=== PATIENT | male | born 1960 | race Caucasian/White ===

== ENCOUNTER 2019-12-19 22:50 | Emergency (ER) | payer OTHER, SELFPAY ==
[2019-12-19 23:17] VITALS: BP 146/92; PULSE 66; RESP 14; TEMP 36.3; O2SAT 99
[2019-12-20 01:13] VITALS: BP 136/86; PULSE 62; RESP 18; TEMP 36.6; O2SAT 100
--- NOTE | 2019-12-20 01:37 | ED.GENADULT ---
HPI - General Adult General Chief complaint: Wound/Laceration Stated complaint: wasp sting Time Seen by Provider: 12/20/19 01:27 Source: RN notes reviewed History of Present Illness HPI narrative: Patient presents emergency department from home for a wasp being. Patient states yesterday he was stung in the left forearm by a wasp. He states since that time he has had continued swelling and erythema to the area. He states he is taken no previous medication for the symptoms. He states that there is no stinger that was left in that he is aware of. States he is concerned of possible infection. He states the area does itch. Denies any fevers or chills wrist pain elbow pain or any other symptoms Related Data Allergies Allergy/AdvReac Type Severity Reaction Status Date / Time No Known Allergies Allergy Verified 02/14/18 04:30 Review of Systems Review of Systems: Narrative: Gen.: Denies fevers or chills Musculoskeletal: Denies joint pain Neuro: Denies numbness, tingling, weakness Skin: See HPI Endo: Denies DM PMFSH Past Medical History Medical History (Updated 12/20/19 @ 01:39 by Davian White DO) Patient denies significant medical history Family History Family History (Updated 03/13/15 @ 09:06 by DOCTOR UNKNOWN) Father Family history of coronary artery disease Hypertension Family history of lung cancer Other Diabetes mellitus Family history of malignant neoplasm Social History Social History Smoking status: Former smoker Smoking end date: 06/12/11 Alcohol intake: never Exam Narrative: Exam Narrative: APPEARANCE: No acute distress, nontoxic, resting in bed Eyes: EOMI HEENT: Normocephalic, atraumatic, RESPIRATORY: No respiratory distress MUSCULOSKELETAl: Left dorsal forearm has area of swelling with erythema and area of wasp bite with no stinger seen, there is no tenderness of the wrist or elbow with full range of motion of both, radial pulse 2+, neurovascular intact NEURO: Awake and alert. Following commands, speech normal, no focal deficits SKIN:: Warm, dry. Normal Color no rash or lesions Course Course Emergency Course: Discussed with patient results of workup and diagnosis. Discussed need for follow-up with primary care, proper use of medication, and reasons to return to the emergency department. Patient understands and agrees to current treatment plan Vital Signs Vital signs: Vital Signs Temperature 97.4 F L 12/19/19 23:17 Pulse Rate 66 12/19/19 23:17 Respiratory Rate 14 12/19/19 23:17 Blood Pressure 146/92 H 12/19/19 23:17 Pulse Oximetry 99 12/19/19 23:17 Temperature 97.8 F 12/20/19 01:13 Pulse Rate 62 12/20/19 01:13 Respiratory Rate 18 12/20/19 01:13 Blood Pressure 136/86 12/20/19 01:13 Pulse Oximetry 100 12/20/19 01:13 Medical Decision Making Vital Signs Vital Signs: Vital Signs Temperature 97.4 F L 12/19/19 23:17 Pulse Rate 66 12/19/19 23:17 Respiratory Rate 14 12/19/19 23:17 Blood Pressure 146/92 H 12/19/19 23:17 Pulse Oximetry 99 12/19/19 23:17 Temperature 97.8 F 12/20/19 01:13 Pulse Rate 62 12/20/19 01:13 Respiratory Rate 18 12/20/19 01:13 Blood Pressure 136/86 12/20/19 01:13 Pulse Oximetry 100 12/20/19 01:13 Discharge Plan Discharge Clinical Impression: Sting, wasp, Cellulitis of forearm, left Patient Disposition: Home, Self-Care Condition: Stable Instructions: Antibiotic Form, Cellulitis (ED), Insect Bite or Sting (ED) Additional Instructions: Return for increasing redness of the forearm increasing pain or any other symptoms of concern Prescriptions: New prednisone 20 mg tablet 20 mg PO BID Qty: 8 RF: 0 cephalexin [Keflex] 500 mg capsule 500 mg PO TID Qty: 30 RF: 0 loratadine 10 mg capsule 10 mg PO DAILY Qty: 5 RF: 0 No Action lisinopril 10 mg tablet 10 mg PO DAILY Qty: 90 RF: 1 Follow
[2019-12-20] MEDS: LORATADINE 10 MG TABLET PO (01:50)
[2019-12-20] MEDS: predniSONE 20 MG TABLET 60 MG PO (01:50)
[2019-12-20] MEDS: CEPHALEXIN 500 MG CAPSULE PO (01:50)
[2019-12-20 01:54] VITALS: BP 134/82; PULSE 78; RESP 16; TEMP 36.6; O2SAT 99
== END 2019-12-20 01:54 | disposition home or self-care (01) ==
PROVIDERS: Emergency Provider Emergency Medicine; PCP Family Medicine
DX: T63.461A Toxic effect of venom of wasps, accidental (unintentional), initial encounter (principal); L03.114 Cellulitis of left upper limb; Z87.891 Personal history of nicotine dependence
CPT/HCPCS: 99283; A9270; J7512

== ENCOUNTER 2020-01-21 17:48 | Emergency (ER) | payer OTHER, SELFPAY ==
--- NOTE | ~2020-01-21 | XR_ITS ---
EXAMINATION: XR abdomen/kub 1V EXAM DATE: 01/21/2020 18:01 INDICATION: Left lower abdominal pain. TECHNIQUE: Frontal projection of the upper abdomen, frontal projection lower abdomen/pelvis for inter pretation. There is no prior study for comparison. FINDINGS: There is expected amount of colonic stool and gas. No small bowel dilation, nonobstructiv e bowel gas pattern. There are no suspicious calcifications identified. There is no organomegaly suspected. There is moderate right, mild to moderate left hip primary osteoarthritis. Lung bases unre markable. IMPRESSION: Unremarkable abdomen x-ray exam. Reviewed, dictated and finalized at location A.
[2020-01-21 17:50] VITALS: BP 140/102; PULSE 79; RESP 20; TEMP 36.2; O2SAT 99
--- NOTE | 2020-01-21 18:05 | ED.GENADULT ---
HPI - General Adult General Chief complaint: Abdominal Pain Stated complaint: abdominal pain Time Seen by Provider: 01/21/20 18:05 Source: patient and RN notes reviewed Mode of arrival: ambulatory Limitations: no limitations History of Present Illness HPI narrative: 59-year-old male presents with complaints of intermittent left lower abdomen pain for the past 2 days. No treatment. No significant genital pain. No genital discharge. No concerns for STDs. No fever or chills. No nausea, vomiting, or diarrhea. No flank pain. Exacerbating factors consist of having bowel movement at times, none at this time. Denies dysuria, hematuria, and genital bleeding. No blood in stool or constipation. Last BM was today and michelle per Davian. Urine out put with in normal limits. The patient reports he have not been diagnosed with COVID-19. The patient reports he is not waiting for the results of a COVID-19 lab test. The patient reports he do not have fever, chills, weakness, fatigue, or myalgia. The patient reports he do not have a new or worsening cough or shortness of breath. Denies chest pain. The patient reports he do not have any rhinorrhea, congestion, sore throat, nausea, vomiting, and diarrhea. Tolerating po intake well. Denies recent traveling. Denies concerns for COVID-19 or exposures been home with limited outdoor exposure except for essential household needs, work, and return home. At this time, patient is not suspected of having COVID-19. Some parts of this dictation were generated by voice recognition software and may contain typographical and/or grammatical inaccuracies. Related Data Allergies Allergy/AdvReac Type Severity Reaction Status Date / Time No Known Allergies Allergy Verified 02/14/18 04:30 Review of Systems Review of Systems: Narrative: CONSTITUTIONAL: Denies fever, chills, sweats. EYES: Denies visual changes, redness, discharge. ENT: Denies rhinorrhea, congestion, sore throat, otalgia. CARDIOVASCULAR: Denies chest pain, palpitations, edema. RESPIRATORY: Denies dyspnea, wheezing, cough. GASTROINTESTINAL: Complains of intermittent left lower abdomen pain. Denies vomiting, diarrhea, nausea, and decrease appetite. GENITOURINARY: Denies dysuria, hematuria, abnormal discharge. SKIN: Denies rash or itching. MUSCULOSKELETAL: Denies acute back pain, joint pain, or myalgia. NEUROLOGIC: Denies numbness or focal weakness. PSYCHIATRIC: Denies anxiety or depression. All systems reviewed & are unremarkable except as noted in HPI and below. [facility] Past Medical History Medical History (Updated 01/22/20 @ 00:00 by Dorothy Samayoa) Diverticulosis of large intestine without hemorrhage Erectile dysfunction Essential hypertension RONALD (obstructive sleep apnea) Pure hypercholesterolemia Surgical History Surgical History (Updated 01/21/20 @ 18:08 by AVINASH Nichols) History of left inguinal hernia repair Family History Family History Father Family history of coronary artery disease Hypertension Family history of lung cancer Other Diabetes mellitus Family history of malignant neoplasm Social History Social History Smoking status: Former smoker Smoking end date: 06/12/11 Alcohol intake: never Gender identity (if verbalized by the patient): Male Comments At time of signature, agree with nurse past medical, surgical, social, and family history. There is relevant patient's past medical history pertinent to the presenting complaint, no relevant family history pertinent to the presenting complaint. Exam Narrative: Exam Narrative: GENERAL: This is a well-nourished, well-developed patient, in no apparent distress. Talks in full sentences without deficits and ambulates with steady gait without dyspnea. HEAD: normocephalic, atraumatic. EYES: PERRL. Sclera clear/white. Vision is g
[2020-01-21 18:16] VITALS: BP 139/85
== END 2020-01-21 18:20 | disposition home or self-care (01) ==
PROVIDERS: Emergency Provider Nurse Practitioner Family; PCP Family Medicine
DX: K57.92 Diverticulitis of intestine, part unspecified, without perforation or abscess without bleeding (principal); Z87.891 Personal history of nicotine dependence; G47.33 Obstructive sleep apnea (adult) (pediatric); E78.00 Pure hypercholesterolemia, unspecified; I10 Essential (primary) hypertension
CPT/HCPCS: 74018; 99213; G0463

== ENCOUNTER 2020-10-03 07:10 | Emergency (ER) | payer OTHER, SELFPAY ==
--- NOTE | ~2020-10-03 | XR_ITS ---
EXAMINATION: XR chest 1V portable DATE: 10/03/2020 08:19 INDICATION: Chest pain. Shortness of breath. Fever. TECHNIQUE: A single frontal view of the chest was obtained. COMPARISON: CT abdomen and pelvis 02/15/2020 FINDINGS: There are patchy airspace opacities in the mid and lower lung zones, right worse than left. No pleural effusion or pneumothorax. The heart size is normal. IMPRESSION: 1. Patchy airspace opacities in the mid and lower lung zones, right worse than left, consistent with pneumonia. Reviewed, dictated and finalized at location A.
--- NOTE | ~2020-10-03 | CT_ITS ---
EXAMINATION: CTA chest PE protocol DATE: 10/03/2020 09:02 INDICATION: Chest pain. COVID-19 pneumonia. TECHNIQUE: Computed tomography angiography (CTA) of the chest was performed with 100 mL Omnipaque-350 intravenous contrast timed to evaluate the pulmonary arteries. Coronal maximum intensity projection 3D-reconstructions were created by the technologist. Automated exposure control and iterative reconst ruction technique were employed. The dose-length product was 416.48 mGy-cm. COMPARISON: CT abdomen and pelvis 03/16/2018 FINDINGS: There are patchy groundglass opacities and patchy areas of crazy paving in all lung lobes b ilaterally. There is mild atelectasis in the lower lobes. There are trace pleural effusions. The hear t size is normal. There are coronary artery calcifications. No pericardial effusion. There is no pulm onary embolus. There are cysts in the liver measuring up to 2.3 cm. There is mild thoracic spondylosi s. IMPRESSION: 1. No pulmonary embolus. 2. Diffuse lung disease, consistent with COVID-19 pneumonia. Reviewed, dictated and finalized at location A.
[2020-10-03 07:16] VITALS: BP 152/75; PULSE 87; RESP 18; TEMP 38.6; O2SAT 95
--- NOTE | 2020-10-03 07:33 | ECG_ITS ---
Measurements Intervals [place] Rate: 84 P: 58 [place]: 141 QRS: -1 QRSD: 88 T: 10 QT: 344 QTc: 408 Interpretive Statements SINUS RHYTHM MINIMAL Q WAVES- INFERIOR LEADS BORDERLINE T WAVE ABNORMALITY- INFERIOR LEADS BASELINE ARTIFACT- II, III, AVR, AVF, V1, V3-V6 BORDERLINE ECG Electronically Signed On 10-03-2020 8:20:56 CDT by Javier Castle D.O.
[2020-10-03 07:42] VITALS: BP 140/76; PULSE 88; RESP 18; O2SAT 95
[2020-10-03 07:47] LABS: Basophils Percent Auto 0.1 % (0.2-1.2); Hemoglobin 14.3 g/dL (14.0-18.0); Immature Granulocyte Absolute 0.02 K/mm3 (0.00-0.031); Immature Granulocyte Percent A 0.3 % (0-0.5); Lymphocytes Absolute Auto 0.88 K/mm3 (0.9-3.2); Lymphocytes Percent Auto 11.3 % (18.3-44.2); Mean Corpuscular HGB Conc 34.9 g/dl (32-36); Mean Corpuscular Hemoglobin 31.2 pg (26-34); Mean Corpuscular Volume 89.3 fl (80-100); Mean Platelet Volume 11.7 fl (7.4-10.4); Monocytes Absolute Auto 0.4 K/mm3 (0.1-0.6); Neutrophils Absolute Auto 6.5 K/mm3 (1.3-6.7); Neutrophils Percent Auto 83.3 % (45.5-73.1); Platelet Count Result 250 k/mm3 (150-375); Red Blood Count 4.59 M/mm3 (4.6-6.20); Red Cell Distribution Width 12.3 % (11.5-14.5); White Blood Count 7.8 K/mm3 (4.5-10.0)
--- NOTE | 2020-10-03 07:47 | ED.URI ---
HPI - URI/Sore Throat General Chief Complaint: Upper Respiratory Infection Stated Complaint: SOB, COVID +, Cough Time Seen by Provider: 10/03/20 07:23 Source: patient Mode of arrival: ambulatory Limitations: no limitations History of Present Illness HPI Narrative: This is a 60 year old male who presents for evaluation of possible COVID pneumonia. He developed fever, cough, chills and body aches on 09/25/20 and he tested positive for covid at [facility] on 09/30/20. He states his cough is getting worse and he is having constant chest pain so he came to ER. His cough is nonproductive. He developed midsternal , nonradiating chest pain yesterday. He describes it as a constant chest pressure. HE also reports shortness of breath. He has not been hypoxic at home. He states his had COVID pneumonia the week before. Related Data Allergies Allergy/AdvReac Type Severity Reaction Status Date / Time No Known Allergies Allergy Verified 10/03/20 07:18 Review of Systems Review of Systems: All systems reviewed & are unremarkable except as noted in HPI and below Constitutional: Constitutional: Reports chills and Reports fever(s) Cardiovascular: Cardiovascular: Reports chest pain Respiratory: Respiratory: Reports cough and Reports dyspnea Gastrointestinal: Gastrointestinal: Denies abdominal pain, Denies diarrhea, Denies nausea and Denies vomiting Musculoskeletal: Musculoskeletal: Reports myalgias PMFSH Past Medical History Medical History (Updated 10/03/20 @ 09:56 by Lindsay Krishna MD) Diverticulosis of large intestine without hemorrhage Erectile dysfunction Essential hypertension RONALD (obstructive sleep apnea) Pure hypercholesterolemia Surgical History Surgical History (Updated 01/21/20 @ 18:08 by AVINASH Nichols) History of left inguinal hernia repair Family History Family History Father Family history of coronary artery disease Hypertension Family history of lung cancer Other Diabetes mellitus Family history of malignant neoplasm Social History Social History (Updated 04/08/20 @ 09:29 by Christina Pacheco MA) Years smoked: 10 Smoking status: Former smoker Tobacco type: cigarettes Second hand tobacco smoke exposure: No Smoking end date: 06/12/11 Alcohol intake: never Substance use: never Substance use type: does not use Gender identity (if verbalized by the patient): Male Exam Const: General: no acute distress and alert Orientation/consciousness: patient oriented x3 Eyes: EOM: EOMs intact bilaterally Resp: Effort & Inspection: normal respiratory effort and no retractions Auscultation: clear to auscultation bilaterally Cardio: Rate: regular rate Rhythm: regular rhythm Heart sounds: no murmurs GI: GI Palp: Yes Soft to palpation, No Tenderness to palpation present (GI) and No Guarding due to palpation present (GI) Auscultation: normal bowel sounds Skin: General skin exam: normal color Rashes: no rashes Neuro: General: patient oriented x3, moves all extremities and CN's II-XI intact bilaterally Psych: Mental Status: mental status grossly normal Affect: normal affect Course Reevaluation(s) Reevaluation #1: Patient was ambulated with pulse oximeter. He remained 95% during entire time around nurses station per tech. I have discussed test results with patient and plan to discharge home. He is comfortable with discharge. He will monitor pulse ox at home. Date: 10/03/20 Time: 09:50 Vital Signs Vital signs: Vital Signs Temperature 101.4 F H 10/03/20 07:16 Pulse Rate 87 10/03/20 07:16 Respiratory Rate 18 10/03/20 07:16 Blood Pressure 152/75 H 10/03/20 07:16 Pulse Oximetry 95 10/03/20 07:16 Temperature 99.4 F 10/03/20 08:08 Pulse Rate 85 10/03/20 10:06 Respiratory Rate 25 H 10/03/20 10:06 Blood Pressure 126/74 10/03/20 10:06 Pulse Oximetry 97 10/03/20 10
[2020-10-03] MEDS: ALBUTEROL SULFATE (*SP) AEROSOL 1 PUFF 6 PUFF INHALATION (07:50)
[2020-10-03 07:56] LABS: INR 0.9; Prothrombin Time 12.9 Seconds (11.1-14.7)
[2020-10-03 07:56] LABS: Add Urine Microscopic? YES; Appearance Urine Cloudy (Clear); Bacteria Urine Trace /hpf; Bilirubin Urine Negative (Negative); Blood Urine 1+ (Negative); Color Urine Amber (Yellow); Glucose Urine UA Negative (Negative); Ketones Urine Trace mg/dL (Negative); Leukocyte Esterase Ur Negative LEU/UL (Negative); Mucus Urine Rare /lpf; Nitrate Urine Negative (Negative); Protein Urine 2+ mg/dL (Negative); Specific Grav Ur 1.026 (1.001-1.035); Urobilinogen Urine Negative mg/dL (<2.0); WBC Urine 0-3 /hpf
[2020-10-03 07:57] LABS: Partial Thromboplastin Time 33.1 SECONDS (22.3-36.8)
[2020-10-03 07:59] LABS: D Dimer 1.67 ug/mL (<0.48)
[2020-10-03 08:01] LABS: Alanine Aminotransferase 45 U/L (4-50); Alkaline Phosphatase 43 U/L (38-126); Anion Gap 10 mmol/L (8-16); Aspartate Amino Transferase 70 U/L (17-59); Bilirubin,Total 0.6 mg/dL (0.2-1.3); Blood Urea Nitrogen 15 mg/dL (9-20); Calcium 8.3 mg/dL (8.4-10.2); Carbon Dioxide 26 mmol/L (22-30); Chloride 94 mmol/L (98-107); Estimated CRCL calculation 70 ml/min; Estimated Glomerular Filt Rate > 60; Glucose 121 mg/dL (75-110); Potassium 3.5 mmol/L (3.4-5.0); Sodium 130 mmol/L (137-145)
[2020-10-03 08:06] LABS: Alveolar/Arterial O2 Gradient 44.6 mmHg; Base Excess ABG 1.4 mEq/l (+/-2.0); Carboxyhemoglobin 0.4 % THb (0-2.0); Fractional Inspired Oxygen 21 %; HCO3 ABG 23.9 mEq/l (22.0-26.0); Methemoglobin ABG 0.3 %THb (0-1.5); Oxygen Content ABG 18.6 %vol (16.0-22.0); Oxyhemoglobin 93.7 % THb (90.0-100.0); PCO2 ABG 31.6 mmHg (35.0-45.0); PO2 ABG 67.3 mmHg (80.0-100.0); Reduced Hemoglobin 5.6 %THb (0-5.0); Total Hemoglobin 14.1 g/dL (12.0-18.0); pH ABG 7.496 (7.350-7.450)
[2020-10-03 08:07] LABS: Device ROOM AIR; Modified Allen's Test Pass; Site Drawn RIGHT RADIAL
[2020-10-03 08:08] VITALS: TEMP 37.4
[2020-10-03 08:08] LABS: Troponin I < 0.012 ng/mL (0.000-0.034)
[2020-10-03 08:09] LABS: CRP 18.8 mg/dL (<1.0)
[2020-10-03 08:45] VITALS: BP 126/71; PULSE 102; RESP 18; O2SAT 95
[2020-10-03] MEDS: SODIUM CHLORIDE 0.9% IV 1,000 ML 999 ML IV CONT (08:45)
[2020-10-03 09:36] VITALS: BP 111/71; PULSE 96; RESP 22; O2SAT 96
[2020-10-03 10:06] VITALS: BP 126/74; PULSE 85; RESP 25; O2SAT 97
== END 2020-10-03 10:07 | disposition home or self-care (01) ==
PROVIDERS: Emergency Provider General Practice; PCP Family Medicine
DX: U07.1 COVID-19 (principal); J12.82 Pneumonia due to coronavirus disease 2019; R94.31 Abnormal electrocardiogram [ECG] [EKG]; K57.30 Diverticulosis of large intestine without perforation or abscess without bleeding; I10 Essential (primary) hypertension; G47.33 Obstructive sleep apnea (adult) (pediatric); E78.00 Pure hypercholesterolemia, unspecified
CPT/HCPCS: 36415; 36600; 71045; 71275; 80053; 81001; 82375; 82805; 83050; 83735; 84484; 85025; 85380; 85610; 85730; 86140; 87040; 93005; 96361; 96365; 99284; A9270; J0131; J7030; Q9967

== ENCOUNTER 2020-10-05 08:52 | Inpatient (IN) | payer OTHER, SELFPAY ==
[2020-10-05] VITALS (22 sets, daily range): BP systolic 101–179; BP diastolic 73–87; PULSE 78–142; RESP 18–44; TEMP 35.9–39.6; O2SAT 76–100; BMI 27.6
--- NOTE | ~2020-10-05 | XR_ITS ---
EXAMINATION: XR chest 1V portable INDICATION: Shortness of breath, COVID 19 pneumonia TECHNIQUE: Portable AP chest at 0525 hours COMPARISON: 10/14/2020 FINDINGS: Diffuse opacities persist in all lung zones with worsening in the right upper lung zone. Th ere is a small right pleural effusion. No pneumothorax is identified. The cardiomediastinal silhouett e is stable. IMPRESSION: 1. Diffuse lung disease with interval worsening in the right upper lung zone, consistent with pneumon ia and/or pulmonary edema and/or acute respiratory distress syndrome (ARDS). Reviewed, dictated and finalized at location A. IMPRESSION: 1. Diffuse lung disease with interval worsening in the right upper lung zone, c onsistent with pneumonia and/or pulmonary edema and/or acute respiratory distre ss syndrome (ARDS).
--- NOTE | ~2020-10-05 | XR_ITS ---
XR chest 1V portable DATE: 10/19/2020 14:04 INDICATION: Covid pneumonia TECHNIQUE: Portable AP chest on 10/19/2020 at 1405 hours COMPARISON: 10/28/2020 portable AP chest FINDINGS: There are extensive bilateral pulmonary infiltrates, greater on the right, with little inte rval change since 10/28/2020. Normal heart size. There is minimal if any pleural effusion. No pneumothorax or pulmonary vascular co ngestion. Osteoarthritic change at both glenohumeral joints. Diffuse osteopenia. IMPRESSION: Persistent bilateral pneumonia, relatively stable since 10/18/2020 Reviewed, dictated and finalized at location A.
--- NOTE | ~2020-10-05 | XR_ITS ---
EXAMINATION: XR chest 1V portable EXAM DATE: 10/28/2020 08:58 INDICATION: Shortness of breath. Recent diagnosis COVID pneumonia. TECHNIQUE: Portable AP frontal chest x-ray was obtained. Comparison is made to prior examination from 10/22/2020. FINDINGS: Moderate amount of scattered regions pneumonia and atelectasis, appearance consistent with subacute COVID pneumonia. There is no significant interval change. There is no pneumothorax suspected . Probable small right pleural effusion. Cardiomediastinal silhouette is normal. There are mild bony degenerative changes. IMPRESSION: Bilateral airspace disease consistent with subacute COVID pneumonia. Small right pleural effusion. Reviewed, dictated and finalized at location A. IMPRESSION: Bilateral airspace disease consistent with subacute COVID pneumonia . Small right pleural effusion.
--- NOTE | ~2020-10-05 | XR_ITS ---
XR chest 1V portable 10/05/2020 09:51 Indication: Covid positive. Shortness of breath. Procedure: AP portable chest Comparison: 10/03/2020 Findings: Progression of extensive bilateral airspace disease, compatible with pneumonia. No pleural effusion or pneumothorax. No acute osseous abnormality. Impression: 1: Progression of diffuse bilateral airspace disease, compatible with pneumonia. Reviewed, dictated and finalized at location B. Impression: 1: Progression of diffuse bilateral airspace disease, compatible with pneumonia .
--- NOTE | ~2020-10-05 | XR_ITS ---
EXAMINATION: XR chest 1V portable DATE: 10/22/2020 10:28 INDICATION: Shortness of breath. COVID-19 pneumonia. TECHNIQUE: A single frontal view of the chest was obtained. COMPARISON: Chest single views 10/19/2020, chest CT 10/03/2020 FINDINGS: There are patchy airspace opacities in all lung zones bilaterally, right worse than left. N o pleural effusion or pneumothorax. The heart size is normal. IMPRESSION: 1. Stable diffuse lung disease, consistent with pneumonia. Reviewed, dictated and finalized at location B.
--- NOTE | ~2020-10-05 | XR_ITS ---
XR chest 1V portable 10/18/2020 08:12 Indication: CovidPneumonia Procedure: AP portable chest Comparison: Comparison to multiple prior studies sequentially, with oldest reviewed study date. Findings: Improving bilateral airspace disease. Small pleural effusions. No pneumothorax. Heart size normal. No acute osseous abnormality. Impression: 1: Significant improvement of bilateral airspace disease, consistent with resolving pneumonia. Reviewed, dictated and finalized at location A. Impression: 1: Significant improvement of bilateral airspace disease, consistent with resol ving pneumonia.
--- NOTE | ~2020-10-05 | XR_ITS ---
EXAMINATION: XR chest 1V portable INDICATION: Shortness of breath, COVID pneumonia TECHNIQUE: Portable AP chest at 0922 hours COMPARISON: 10/05/2020 FINDINGS: Diffuse airspace opacities persist with worsening in the right upper and lower lung zones. There is no pleural effusion or pneumothorax. The cardiomediastinal silhouette is stable. IMPRESSION: 1. Diffuse lung disease with interval worsening on the right, consistent with pneumonia and/or pulmon melissa edema and/or acute respiratory distress syndrome (ARDS). Reviewed, dictated and finalized at location A. IMPRESSION: 1. Diffuse lung disease with interval worsening on the right, consistent with p neumonia and/or pulmonary edema and/or acute respiratory distress syndrome (ZEV S).
--- NOTE | 2020-10-05 09:07 | ECG_ITS ---
Measurements Intervals [place] Rate: 95 P: 55 FL: 147 QRS: 7 QRSD: 79 T: 30 QT: 313 QTc: 395 Interpretive Statements SINUS RHYTHM MINIMAL Q WAVES- INFERIOR LEADS BASELINE ARTIFACT- V2-V3, V5-V6 BORDERLINE ECG Electronically Signed On 10-05-2020 9:13:19 CDT by Javier Castle D.O.
[2020-10-05 09:25] LABS: Basophils Percent Auto 0.1 % (0.2-1.2); Hematocrit 39.9 % (42.0-52.0); Hemoglobin 13.9 g/dL (14.0-18.0); Immature Granulocyte Absolute 0.14 K/mm3 (0.00-0.031); Immature Granulocyte Percent A 0.8 % (0-0.5); Lymphocytes Absolute Auto 0.44 K/mm3 (0.9-3.2); Lymphocytes Percent Auto 2.4 % (18.3-44.2); Mean Corpuscular HGB Conc 34.8 g/dl (32-36); Mean Corpuscular Hemoglobin 31.4 pg (26-34); Mean Corpuscular Volume 90.3 fl (80-100); Mean Platelet Volume 10.8 fl (7.4-10.4); Monocytes Absolute Auto 0.3 K/mm3 (0.1-0.6); Monocytes Percent Auto 1.8 % (2.6-8.5); Neutrophils Absolute Auto 17.5 K/mm3 (1.3-6.7); Neutrophils Percent Auto 94.9 % (45.5-73.1); Platelet Count Result 338 k/mm3 (150-375); Red Blood Count 4.42 M/mm3 (4.6-6.20); Red Cell Distribution Width 12.7 % (11.5-14.5); White Blood Count 18.4 K/mm3 (4.5-10.0)
[2020-10-05 09:36] LABS: Lactic Acid Reflex 2.8 mmol/L (0.7-2.1)
[2020-10-05 09:37] LABS: Anion Gap 7 mmol/L (8-16); Blood Urea Nitrogen 17 mg/dL (9-20); Calcium 8.4 mg/dL (8.4-10.2); Carbon Dioxide 28 mmol/L (22-30); Chloride 95 mmol/L (98-107); Estimated CRCL calculation 59 ml/min; Estimated Glomerular Filt Rate > 60; Glucose 133 mg/dL (75-110); Potassium 3.7 mmol/L (3.4-5.0); Sodium 130 mmol/L (137-145)
[2020-10-05 09:44] LABS: Alveolar/Arterial O2 Gradient 242.4 mmHg; Fractional Inspired Oxygen 48 %; HCO3 ABG 23.4 mEq/l (22.0-26.0); Oxygen Content ABG 17.9 %vol (16.0-22.0); Oxygen Saturation ABG 94.6 % (95.0-100.0); Oxyhemoglobin 93.6 % THb (90.0-100.0); PCO2 ABG 30.8 mmHg (35.0-45.0); PO2 FiO2 Ratio Arterial Blood 1.35 %; Total Hemoglobin 13.6 g/dL (12.0-18.0); pH ABG 7.498 (7.350-7.450)
[2020-10-05 09:45] LABS: Device HIGH FLOW NASAL CANN; Modified Allen's Test Pass; Site Drawn RIGHT RADIAL
[2020-10-05] MEDS: DEXAMETHASONE SOD PHOS INJ 4 MG/ML VIAL 6 MG IV PUSH (09:46)
[2020-10-05] MEDS: ACETAMINOPHEN 325 MG TABLET 650 MG PO (10:16)
[2020-10-05] MEDS: SODIUM CHLORIDE 0.9% IV 1,000 ML 150 ML IV CONT (11:00)
--- NOTE | 2020-10-05 11:52 | ED.GENADULT ---
HPI - General Adult General Chief complaint: Shortness of Breath/Dyspnea Stated complaint: sob/covid Time Seen by Provider: 10/05/20 08:59 Source: patient Mode of arrival: ambulatory Limitations: no limitations History of Present Illness HPI narrative: 60-year-old with no major medical problems here with complaints of shortness of breath. Patient states that he has been sick approximately for past 10 days had a Covid screen done 4 days ago and was tested positive. He states that he has been having high fever and occasional cough. He denies any nausea, vomiting or diarrhea or abdominal pain. Upon arrival to the ER his O2 saturations were 79% on room air. Onset (ago): day(s) (10) Severity: moderate Relieving factors: other (Oxygen) Exacerbating factors: none Associated symptoms: cough and fever/chills Related Data Allergies Allergy/AdvReac Type Severity Reaction Status Date / Time No Known Allergies Allergy Verified 10/05/20 09:46 Review of Systems Review of Systems: All systems reviewed & are unremarkable except as noted in HPI and below Constitutional: Constitutional: Reports as per HPI Eyes: Eyes: Reports no additional eye complaints ENT: Reports system reviewed and no additional complaints, except as documented Cardiovascular: Cardiovascular: Reports no additional cardiovascular complaints Respiratory: Respiratory: Reports as per HPI Genitourinary: Genitourinary: Reports no additional male genitourinary complaints Musculoskeletal: Musculoskeletal: Reports no additional musculoskeletal complaints Integumentary/Breasts: Skin/Breast: Reports system reviewed and no additional complaints, except as docu Neurologic: Reports system reviewed and no additional complaints, except as documented Psychiatric: Psychiatric: Reports no additional psychiatric complaints Endocrine: Endocrine: Reports no additional endocrine complaints Hematologic/Lymphatic: Hematologic/Lymphatic: Reports no additional hematologic/lymphatic complaints [facility] Past Medical History Medical History Diverticulosis of large intestine without hemorrhage Erectile dysfunction Essential hypertension RONALD (obstructive sleep apnea) Pure hypercholesterolemia Surgical History Surgical History History of left inguinal hernia repair Family History Family History Father Family history of coronary artery disease Hypertension Family history of lung cancer Other Diabetes mellitus Family history of malignant neoplasm Social History Social History Years smoked: 10 Smoking status: Former smoker Tobacco type: cigarettes Second hand tobacco smoke exposure: No Smoking end date: 06/12/11 Alcohol intake: never Substance use: never Substance use type: does not use Gender identity (if verbalized by the patient): Male Exam Narrative: Exam Narrative: GENERAL: Well-appearing,anxious , well-nourished, and in mild respiratory distress. HEAD: Normocephalic, atraumatic. EYES: PERRLA and EOMI. NECK: Supple. CHEST: Bilateral coarse breath sounds poor air entry HEART: Regular rate and rhythm. No murmur heard. Normal peripheral pulses. ABDOMEN: Soft, nontender, nondistended, normal active bowel sounds. EXTREMITIES: Normal range of motion. No edema. SKIN: Warm, dry, no rash. NEURO: No focal deficits. Alert and oriented x3. PSYCH: Normal mood and affect. Course Course Emergency Course: Patient was placed on high flow oxygen and his O2 saturations are up to 94 to 95% he feels much better I discussed labs and chest x-ray finding. Discussed with the hospitalist agreed to admit the patient. Vital Signs Vital signs: Vital Signs Temperature 39.6 C H 10/05/20 08:57 Pulse Rate 95 10/05/20 08:57 Respiratory Rate 44 H 10/05/20
[2020-10-05 12:22] LABS: Reflex Lactic Acid Yes or No Add Lactic
--- NOTE | 2020-10-05 12:53 | PM.IMHP ---
H&P: HPI History of Present Illness Date/Time: 10/05/20 12:53 Chief Complaint: Shortness of breath Narrative: This is a 60-year-old male with no significant past medical history the patient presented to the emergency room last Monday due to shortness of breath he had tested positive for COVID Monday prior to these both him and his have been sick for 3 weeks at home patient states that he has worsening shortness of breath dry cough, chills ,rigors, poor appetite, general malaise, muscle aches and pain. Patient also with significant changes found on a chest x-ray with diffuse infiltrates. Patient upon arrival to emergency room with found to be saturating at 75% on room air he require high-flow oxygen as well. Patient states that he feels miserable. Patient was seen last started in emergency room and was sent home with Tessalon Perles dexamethasone and albuterol. Review of Systems Review of Systems: Narrative: With patient presented to the emergency room due to worsening shortness of breath he had been prior to DS on Monday and was sent home on albuterol and Tessalon Perles and dexamethasone however came back today due to worsening shortness of breath and cough patient tested positive last Monday for COVID-19 Constitutional: Constitutional: Reports body ache(s), Reports chills, Reports difficulty sleeping, Reports fatigue, Reports fever(s) and Reports poor appetite Eyes: Comments: No vision change ENT: Comments: No sore throat no earache nasal congestion Cardiovascular: Comments: No chest pain no PND no orthopnea no leg swelling Respiratory: Comments: Dry cough shortness of breath Gastrointestinal: Comments: No nausea no vomiting no diarrhea Musculoskeletal: Comments: Muscle aches and pains Integumentary/Breasts: Comments: No rash Neurologic: Comments: No sensorimotor deficit Endocrine: Comments: No polydipsia polyphagia polyuria no heat or cold intolerance Hematologic/Lymphatic: Comments: No lymphadenopathies PMFSH Past Medical History Medical History Diverticulosis of large intestine without hemorrhage Erectile dysfunction Essential hypertension RONALD (obstructive sleep apnea) Pure hypercholesterolemia Surgical History Surgical History History of left inguinal hernia repair Family History Family History Father Family history of coronary artery disease Hypertension Family history of lung cancer Other Diabetes mellitus Family history of malignant neoplasm Social History Social History Years smoked: 10 Smoking status: Former smoker Tobacco type: cigarettes Second hand tobacco smoke exposure: No Smoking end date: 06/12/11 Alcohol intake: never Substance use: never Substance use type: does not use Gender identity (if verbalized by the patient): Male Meds Home Medications and Allergies Home Medications Medication Instructions Recorded Confirmed Type lisinopril 10 mg tablet 10 mg PO DAILY #90 tablet 08/13/20 Rx albuterol sulfate 2 puff INHALATION QID PRN #6.7 g 10/03/20 Rx benzonatate [Tessalon Perles] 100 mg PO TID PRN #14 cap 10/03/20 Rx dexamethasone 6 mg PO DAILY #5 tablet 10/03/20 Rx Allergies Allergy/AdvReac Type Severity Reaction Status Date / Time No Known Allergies Allergy Verified 10/05/20 09:46 Vital Signs Vital Signs - 24 hr 10/05/20 08:57 10/05/20 09:00 10/05/20 09:20 Temperature 103.2 F H Pulse Rate 95 95 95 Respiratory Rate 44 H 26 H 31 H Blood Pressure 179/84 H 179/84 H 160/87 H Pulse Oximetry 76 L 93 93 10/05/20 09:40 10/05/20 09:46 10/05/20 10:00 Temperature Pulse Rate 95 96 Respiratory Rate 37 H 34 H Blood Pressure 151/84 H 150/81 H Pulse Oximetry 96 96 100 10/05/20 10:40 10/05/20 11:41 Temperature 10
[2020-10-05 15:02] LABS: Prothrombin Time 13.9 Seconds (11.1-14.7)
[2020-10-05 15:03] LABS: Alanine Aminotransferase 71 U/L (4-50); Estimated CRCL calculation 77 ml/min; Estimated Glomerular Filt Rate > 60
[2020-10-05] MEDS: ALBUTEROL SULFATE (*SP) AEROSOL 1 PUFF 2 PUFF INHALATION (15:03)
[2020-10-05] MEDS: dilTIAZem HCl INJ 25 MG/5 ML VIAL 20 MG IV PUSH (15:10)
[2020-10-05] MEDS: SODIUM CHLORIDE 0.9% IV 1,000 ML 125 ML IV CONT ×2 (15:10→20:33)
[2020-10-05] MEDS: REMDESIVIR 200 MG/NS 250 ML 200 MG/250 ML BAG 250 MG IVPB (16:49)
[2020-10-05] MEDS: ENOXAPARIN 100 MG/ML SYRINGE 85 MG SUB-Q (19:00)
[2020-10-05] MEDS: ALBUTEROL SULFATE (*SP) INHALER 2 PUFF INHALATION (20:00)
[2020-10-06] VITALS (21 sets, daily range): BP systolic 118–159; BP diastolic 79–93; PULSE 90–118; RESP 20; TEMP 36.1–37.1; O2SAT 89–94
[2020-10-06] MEDS: SODIUM CHLORIDE 0.9% IV 1,000 ML 125 ML IV CONT ×3 (03:35→19:59)
[2020-10-06] MEDS: ALBUTEROL SULFATE (*SP) INHALER 2 PUFF INHALATION ×6 (04:00→20:03)
[2020-10-06 04:07] LABS: Basophils Percent Auto 0.1 % (0.2-1.2); Hematocrit 34.7 % (42.0-52.0); Hemoglobin 12.3 g/dL (14.0-18.0); Immature Granulocyte Absolute 0.21 K/mm3 (0.00-0.031); Immature Granulocyte Percent A 1.1 % (0-0.5); Lymphocytes Absolute Auto 0.44 K/mm3 (0.9-3.2); Lymphocytes Percent Auto 2.2 % (18.3-44.2); Mean Corpuscular HGB Conc 35.4 g/dl (32-36); Mean Corpuscular Hemoglobin 31.8 pg (26-34); Mean Corpuscular Volume 89.7 fl (80-100); Mean Platelet Volume 10.5 fl (7.4-10.4); Monocytes Absolute Auto 0.5 K/mm3 (0.1-0.6); Monocytes Percent Auto 2.7 % (2.6-8.5); Neutrophils Absolute Auto 18.5 K/mm3 (1.3-6.7); Neutrophils Percent Auto 93.9 % (45.5-73.1); Platelet Count Result 323 k/mm3 (150-375); Red Blood Count 3.87 M/mm3 (4.6-6.20); Red Cell Distribution Width 12.8 % (11.5-14.5); White Blood Count 19.7 K/mm3 (4.5-10.0)
[2020-10-06 04:17] LABS: INR 1.1; Prothrombin Time 14.9 Seconds (11.1-14.7)
[2020-10-06 04:20] LABS: Alanine Aminotransferase 83 U/L (4-50); Albumin Level 2.9 g/dL (3.5-5.1); Alkaline Phosphatase 50 U/L (38-126); Anion Gap 3 mmol/L (8-16); Aspartate Amino Transferase 103 U/L (17-59); Bilirubin,Total 0.5 mg/dL (0.2-1.3); Blood Urea Nitrogen 16 mg/dL (9-20); Calcium 7.3 mg/dL (8.4-10.2); Carbon Dioxide 26 mmol/L (22-30); Chloride 98 mmol/L (98-107); Estimated CRCL calculation 77 ml/min; Estimated Glomerular Filt Rate > 60; Glucose 107 mg/dL (75-110); Potassium 3.9 mmol/L (3.4-5.0); Sodium 127 mmol/L (137-145)
[2020-10-06] MEDS: ENOXAPARIN 100 MG/ML SYRINGE 85 MG SUB-Q ×2 (05:49→18:33)
[2020-10-06] MEDS: DEXAMETHASONE SOD PHOS INJ 4 MG/ML VIAL 6 MG IV PUSH (08:36)
--- NOTE | 2020-10-06 09:33 | PM.CNCAR ---
Assessment and Plan Assessment and plan (1) Atrial fibrillation with rapid ventricular response: Code(s): I48.91 - Unspecified atrial fibrillation Status: Acute Assessment and Plan: New onset this hospitalization very likely secondary to hypoxic respiratory failure in setting of COVID pneumonia. Heart rate under reasonable control on diltiazem infusion. We will attempt to wean to oral regimen. If 50 mg metoprolol tartrate b.i.d. 1st dose now than 30 minutes later wean diltiazem off. Continue systemic anticoagulation with enoxaparin 1 milligram/kilogram subcutaneous q.12 hours. May transition to oral regimen Eliquis 5 mg b.i.d.. Monitor liver function tests. 2D echocardiogram prior to discharge or if change in clinical status. Improve heart rate control prior to echo. Monitor electrolytes, respiratory status. Check TSH. Check magnesium level. Potassium level within normal limits. (2) Acute respiratory failure with hypoxia: Code(s): J96.01 - Acute respiratory failure with hypoxia Status: Acute Assessment and Plan: Per hospitalist service. Continue supportive care. No question respiratory compromise, COVID infection driving A. Fib development. (3) Pneumonia due to COVID-19 virus: Code(s): U07.1 - COVID-19; J12.82 - Pneumonia due to coronavirus disease 2019 Status: Acute Assessment and Plan: Remains on isolation for COVID. High-flow nasal cannula. Dexamethasone, antibiotics, supplemental oxygen, bronchodilator therapy, Remdesivir. (4) Essential hypertension: Code(s): I10 - Essential (primary) hypertension Status: Acute Assessment and Plan: Fair control overall. Was on lisinopril 10 mg daily as an outpatient. History of Present Illness History of Present Illness Consult date/time: Date of service: 10/06/20 09:33 Cardiology consultation at the request of Dr. Greene for our opinion regarding atrial fibrillation with RVR in the setting COVID pneumonia. Requesting physician: Gala Greene MD Consult reason: atrial fibrillation Reason For Visit: Covid pneumonia with hypoxemia Narrative: Patient is a pleasant 60-year-old male with a past medical history significant for hypertension, reported dyslipidemia who presented to the emergency room initially 10/03/2020 with complaints of shortness of breath and positive COVID test previously. He has been ill with his for 3 weeks. Due to worsening shortness of breath, dry cough, chills, rigors and decreased appetite he presented to the emergency department. He also complained of muscle aches. CT PE protocol was obtained 10/03/2020 which revealed diffuse infiltrate consistent with COVID pneumonia but no pulmonary embolism. Patient was discharged home with dexamethasone and albuterol but due to progression as noted above presented back to the ER on 10/05/2020. He was noted be hypoxic improved on supplemental oxygen saturation. At presentation he was in sinus rhythm but subsequently developed atrial fibrillation with rapid ventricular response with heart rate up to the 130-150's. He was started on diltiazem infusion currently at 5 milligrams/hour as well as enoxaparin 1 milligram/kilogram subcutaneous q.12 hours. Patient complained of fatigue, chest heaviness, cough and shortness of breath. He is aware times a his heart beating more rapidly. He has no prior history of any cardiac issues including atrial fibrillation. Denies heart failure, history of DVT/PE, bleeding complications, near-syncope or syncope. Review of Systems Review of Systems: All systems reviewed & are unremarkable except as noted in HPI and below Constitutional: Constitutional: Reports as per HPI, Reports no additional constitutional complaints, Reports body ache(s), Reports chills, Reports fatigue, Reports lethargy and Reports weakness Eyes: Eyes: Reports as per HPI and Reports no additional eye complaints ENT: Reports system reviewed and n
[2020-10-06] MEDS: METOPROLOL TARTRATE 50 MG TAB PO ×2 (10:31→20:02)
--- NOTE | 2020-10-06 12:12 | PM.IMPN ---
Progress Note: A&P Assessment and Plan (1) Acute respiratory failure with hypoxia: Code(s): J96.01 - Acute respiratory failure with hypoxia Status: Acute Assessment and Plan: Patient is currently on high-flow nasal cannula Airvo. Try and keep oxygen saturation 94% Supportive care Breathing treatments (2) Pneumonia due to COVID-19 virus: Code(s): U07.1 - COVID-19; J12.82 - Pneumonia due to coronavirus disease 2019 Status: Acute Assessment and Plan: Patient receives convalescent plasma Remdesivir and Dexamethasone Rocephin and Zithromax (3) Atrial fibrillation with rapid ventricular response: Code(s): I48.91 - Unspecified atrial fibrillation Status: Acute Assessment and Plan: Currently on Cardizem drip Appreciate cardiology consult Anticoagulated with Lovenox (4) RONALD (obstructive sleep apnea): Code(s): G47.33 - Obstructive sleep apnea (adult) (pediatric) Status: Acute Assessment and Plan: Unclear if patient uses CPAP at home (5) Essential hypertension: Code(s): I10 - Essential (primary) hypertension Status: Acute Assessment and Plan: Continue to monitor (6) Hyponatremia: Code(s): E87.1 - Hypo-osmolality and hyponatremia Status: Acute Assessment and Plan: Will send urine lytes Urine osmolality Free water restriction Patient with a positive balance SIADH a possibility Subjective Date/time seen: 10/06/20 12:12 I feel much better Review of Systems Review of Systems: Narrative: Patient presented to emergency room due to worsening shortness of breath generalized malaise fatigue poor appetite chills and rigors dry cough Exam Narrative: Exam Narrative: Patient is laying in bed in no acute distress Patient is on high-flow nasal cannula Airvo Const: General: comfortable, no acute distress, well developed, alert, awake and ill appearing acutely Nutritional Appearance: average body habitus Orientation/consciousness: patient oriented x3 HENMT: Head: normal to inspection, normocephalic and atraumatic Ears: hearing grossly normal bilaterally Face and sinus: normal facial exam Eyes: General: appearance normal, both eyes and all related structures Pupils: Equal, round and reactive pupils present EOM: EOMs intact bilaterally Neck: Neck: full ROM, no lymphadenopathy and no JVD Thyroid: thyroid normal Lymphatic: no lymphadenopathy noted Resp: Effort & Inspection: normal respiratory effort and able to speak in complete sentences Auscultation: clear to auscultation bilaterally and diminished lung sounds Cardio: Jugular venous distension: no JVD Rate: regular rate Rhythm: regular rhythm Heart sounds: S1 normal heart sound present and S2 normal heart sound present GI: GI Palp: Yes Soft to palpation and Yes No hepatosplenomegaly present : General: Yes deferred Skin: Rashes: no rashes Wounds: no wounds Neuro: General: patient oriented x3 and CN's II-XI intact bilaterally Cranial nerves: Yes CN's II-XII intact bilaterally and Yes Equal, round and reactive pupils present Cognition (Neuro): normal cognition Speech: normal speech Gait exam (Neuro): Normal gait present Motor exam (neuro): 5/5 motor strength present throughout Extrem: General: normal to inspection, full ROM, no joint enlargement and no pedal edema Objective Data Vital Signs Vital Signs: Vital Signs - 24 hr 10/05/20 13:12 10/05/20 13:43 10/05/20 14:00 Temperature 96.6 F L Pulse Rate 124 H 128 H 131 H Respiratory Rate 18 28 H Blood Pressure 101/82 137/84 Pulse Oximetry 94 94 10/05/20 15:08 10/05/20 15:09 10/05/20 16:00 Temperature Pulse Rate 134 H 129 H Respiratory Rate Blood Pressure Pulse Oximetry 93 90 10/05/20 16:57 10/05/20 18:00 10/05/20 20:00 Temperature 97.2 F L 99.8 F H Pulse Rate 120 H 126 H 127 H Respiratory Rate 22 H 22 H Blood Pressure 129/74 149/82 H Pulse Oximetry 93 86 L 10/05
[2020-10-06 14:38] LABS: Sodium Urine Random 93 meq/L
[2020-10-06] MEDS: TUBING, BLOOD PLUM PUMP TUBING 1 EACH XX (16:49)
[2020-10-06] MEDS: SODIUM CHLORIDE 0.9% IV 250 ML 30 ML IV CONT (16:49)
[2020-10-06] MEDS: REMDESIVIR 100 MG/NS 250 ML 100 MG/250 ML BAG 250 MG IVPB (22:30)
[2020-10-07] VITALS (21 sets, daily range): BP systolic 137–152; BP diastolic 86–93; PULSE 91–129; RESP 20–24; TEMP 35.6–36.4; O2SAT 92–98
[2020-10-07] MEDS: ALBUTEROL SULFATE (*SP) INHALER 2 PUFF INHALATION ×7 (00:31→22:41)
[2020-10-07] MEDS: SODIUM CHLORIDE 0.9% IV 1,000 ML 125 ML IV CONT ×2 (03:50→12:00)
[2020-10-07 04:57] LABS: Alanine Aminotransferase 126 U/L (4-50); Estimated CRCL calculation 97 ml/min; Estimated Glomerular Filt Rate > 60
[2020-10-07 05:24] LABS: Prothrombin Time 14.2 Seconds (11.1-14.7)
[2020-10-07] MEDS: ENOXAPARIN 100 MG/ML SYRINGE 85 MG SUB-Q ×2 (05:43→17:53)
[2020-10-07] MEDS: METOPROLOL TARTRATE 50 MG TAB PO (09:27)
[2020-10-07] MEDS: DEXAMETHASONE SOD PHOS INJ 4 MG/ML VIAL 6 MG IV PUSH (09:27)
[2020-10-07 10:34] LABS: Hemoglobin 12.7 g/dL (14.0-18.0); Mean Corpuscular HGB Conc 35.3 g/dl (32-36); Mean Corpuscular Hemoglobin 31.1 pg (26-34); Mean Platelet Volume 10.2 fl (7.4-10.4); Platelet Count Result 385 k/mm3 (150-375); Red Blood Count 4.09 M/mm3 (4.6-6.20); Red Cell Distribution Width 12.6 % (11.5-14.5); White Blood Count 18.4 K/mm3 (4.5-10.0)
[2020-10-07 10:43] LABS: Anion Gap 5 mmol/L (8-16); Blood Urea Nitrogen 14 mg/dL (9-20); Calcium 7.5 mg/dL (8.4-10.2); Carbon Dioxide 22 mmol/L (22-30); Chloride 102 mmol/L (98-107); Estimated CRCL calculation 112 ml/min; Estimated Glomerular Filt Rate > 60; Glucose 166 mg/dL (75-110); Lactate Dehydrogenase 1138 U/L (313-618); Potassium 3.8 mmol/L (3.4-5.0); Sodium 129 mmol/L (137-145)
[2020-10-07 11:02] LABS: Band Neutrophils Percent 3 % (0-6); Lymphocytes Absolute Manual 0.55 K/mm3 (1.1-4.5); Monocytes Absolute Manual 0.55 K/mm3 (0.1-0.90); Monocytes Percent Manual 3 % (3-9); Neutrophils Absolute Manual 17.29 K/mm3 (1.3-6.7); Neutrophils Percent Manual 91 % (46-73); Total Cells Counted 100
[2020-10-07 11:03] LABS: Platelet Estimate Adequate (Adequate)
--- NOTE | 2020-10-07 12:33 | PM.IMPN ---
Progress Note: A&P Assessment and Plan (1) Acute respiratory failure with hypoxia: Code(s): J96.01 - Acute respiratory failure with hypoxia Status: Acute Assessment and Plan: Patient is currently on high-flow nasal cannula Airvo. 45 % oxygen Try and keep oxygen saturation 94% Supportive care Breathing treatments (2) Pneumonia due to COVID-19 virus: Code(s): U07.1 - COVID-19; J12.82 - Pneumonia due to coronavirus disease 2019 Status: Acute Assessment and Plan: Patient receives convalescent plasma Remdesivir and Dexamethasone Rocephin and Zithromax Follow inflammatory markers LFTs reviewed (3) Atrial fibrillation with rapid ventricular response: Code(s): I48.91 - Unspecified atrial fibrillation Status: Acute Assessment and Plan: Off of Cardizem drip Appreciate cardiology consulted Anticoagulated with Lovenox On metoprolol (4) RONALD (obstructive sleep apnea): Code(s): G47.33 - Obstructive sleep apnea (adult) (pediatric) Status: Acute Assessment and Plan: Patient is uses a CPAP at nighttime (5) Essential hypertension: Code(s): I10 - Essential (primary) hypertension Status: Acute Assessment and Plan: Continue to monitor (6) Hyponatremia: Code(s): E87.1 - Hypo-osmolality and hyponatremia Status: Acute Assessment and Plan: Will send urine lytes Urine osmolality Free water restriction Patient with a positive balance SIADH more likely Random urine sodium was 93 Subjective Date/time seen: 10/07/20 12:33 Review of Systems Constitutional: Constitutional: Reports body ache(s), Reports chills, Reports difficulty sleeping, Reports fatigue, Reports fever(s) and Reports poor appetite Endocrine: Endocrine: Reports fatigue Exam Const: General: comfortable, no acute distress, well developed, alert, awake and ill appearing acutely Nutritional Appearance: average body habitus Orientation/consciousness: patient oriented x3 HENMT: Head: normal to inspection, normocephalic and atraumatic Ears: hearing grossly normal bilaterally Face and sinus: normal facial exam Eyes: General: appearance normal, both eyes and all related structures Pupils: Equal, round and reactive pupils present EOM: EOMs intact bilaterally Neck: Neck: full ROM, no lymphadenopathy and no JVD Thyroid: thyroid normal Lymphatic: no lymphadenopathy noted Resp: Effort & Inspection: normal respiratory effort and able to speak in complete sentences Auscultation: clear to auscultation bilaterally and diminished lung sounds Cardio: Jugular venous distension: no JVD Rate: regular rate Rhythm: regular rhythm Heart sounds: S1 normal heart sound present and S2 normal heart sound present : General: Yes deferred Skin: Rashes: no rashes Wounds: no wounds Neuro: General: patient oriented x3 and CN's II-XI intact bilaterally Cranial nerves: Yes CN's II-XII intact bilaterally and Yes Equal, round and reactive pupils present Cognition (Neuro): normal cognition Speech: normal speech Gait exam (Neuro): Normal gait present Motor exam (neuro): 5/5 motor strength present throughout Extrem: General: normal to inspection, full ROM, no joint enlargement and no pedal edema Objective Data Vital Signs Vital Signs: Vital Signs - 24 hr 10/06/20 14:00 10/06/20 16:00 10/06/20 17:11 Temperature 97.5 F L 97.5 F L Pulse Rate 97 99 104 H Respiratory Rate 20 20 Blood Pressure 129/82 129/82 Pulse Oximetry 93 93 10/06/20 17:27 10/06/20 18:00 10/06/20 18:27 Temperature 97.2 F L 97 F L Pulse Rate 116 H 118 H 110 H Respiratory Rate 20 20 Blood Pressure 120/83 130/85 Pulse Oximetry 94 93 10/06/20 19:45 10/06/20 20:00 10/06/20 20:02 Temperature 98.0 F Pulse Rate 108 H 101 H 95 Respiratory Rate 20 Blood Pressure 140/81 Pulse Oximetry 94 94 10/06/20 22:00 10/06/20 23:11 10/07/20 00:00 Temperature 97.9 F Pulse Rate 97 107 H 98
[2020-10-07] MEDS: METOPROLOL TARTRATE 25 MG TABLET 75 MG PO (21:30)
[2020-10-07] MEDS: REMDESIVIR 100 MG/NS 250 ML 100 MG/250 ML BAG 250 MG IVPB (21:30)
[2020-10-08] VITALS (18 sets, daily range): BP systolic 112–142; BP diastolic 73–94; PULSE 92–124; RESP 20–28; TEMP 36.2–36.6; O2SAT 91–98
[2020-10-08] MEDS: ALBUTEROL SULFATE (*SP) INHALER 2 PUFF INHALATION ×5 (03:54→21:14)
[2020-10-08] MEDS: ENOXAPARIN 100 MG/ML SYRINGE 85 MG SUB-Q ×2 (05:34→18:13)
[2020-10-08 05:50] LABS: Alanine Aminotransferase 125 U/L (4-50); Estimated CRCL calculation 86 ml/min; Estimated Glomerular Filt Rate > 60
[2020-10-08] MEDS: METOPROLOL TARTRATE 25 MG TABLET 75 MG PO ×2 (08:59→18:12)
[2020-10-08] MEDS: DEXAMETHASONE SOD PHOS INJ 4 MG/ML VIAL 6 MG IV PUSH (09:00)
--- NOTE | 2020-10-08 11:35 | PM.IMPN ---
Progress Note: A&P Assessment and Plan (1) Acute respiratory failure with hypoxia: Code(s): J96.01 - Acute respiratory failure with hypoxia Status: Acute Assessment and Plan: Patient is currently on high-flow nasal cannula Airvo. 45 % oxygen Try and keep oxygen saturation 94% Supportive care Breathing treatments (2) Pneumonia due to COVID-19 virus: Code(s): U07.1 - COVID-19; J12.82 - Pneumonia due to coronavirus disease 2019 Status: Acute Assessment and Plan: Patient receives convalescent plasma Remdesivir and Dexamethasone Rocephin and Zithromax Follow inflammatory markers LFTs reviewed (3) Atrial fibrillation with rapid ventricular response: Code(s): I48.91 - Unspecified atrial fibrillation Status: Acute Assessment and Plan: Off of Cardizem drip Appreciate cardiology note Anticoagulated with Lovenox On metoprolol (4) RONALD (obstructive sleep apnea): Code(s): G47.33 - Obstructive sleep apnea (adult) (pediatric) Status: Acute Assessment and Plan: Patient is uses a CPAP at nighttime continue CPAP at nighttime BiPAP p.r.n. as needed (5) Essential hypertension: Code(s): I10 - Essential (primary) hypertension Status: Acute Assessment and Plan: Continue to monitor (6) Hyponatremia: Code(s): E87.1 - Hypo-osmolality and hyponatremia Status: Acute Assessment and Plan: Will send urine lytes Urine osmolality Free water restriction Patient with a positive balance SIADH more likely Random urine sodium was 93 sodium trending up Subjective Date/time seen: 10/08/20 11:35 I feel about the same Review of Systems Constitutional: Constitutional: Reports body ache(s), Reports chills, Reports difficulty sleeping, Reports fatigue, Reports fever(s) and Reports poor appetite Respiratory: Comments: Shortness of breath Endocrine: Endocrine: Reports fatigue Exam Narrative: Exam Narrative: patient with HFNC Airvo 45% saturating 95% Const: General: comfortable, no acute distress, well developed, alert, awake and ill appearing acutely Nutritional Appearance: average body habitus Orientation/consciousness: patient oriented x3 HENMT: Head: normal to inspection, normocephalic and atraumatic Ears: hearing grossly normal bilaterally Face and sinus: normal facial exam Eyes: General: appearance normal, both eyes and all related structures Pupils: Equal, round and reactive pupils present EOM: EOMs intact bilaterally Neck: Neck: full ROM, no lymphadenopathy and no JVD Thyroid: thyroid normal Lymphatic: no lymphadenopathy noted Resp: Effort & Inspection: normal respiratory effort and able to speak in complete sentences Auscultation: diminished lung sounds Cardio: Jugular venous distension: no JVD Rate: regular rate Rhythm: regular rhythm Heart sounds: S1 normal heart sound present and S2 normal heart sound present : General: Yes deferred Skin: Rashes: no rashes Wounds: no wounds Neuro: General: patient oriented x3 and CN's II-XI intact bilaterally Cranial nerves: Yes CN's II-XII intact bilaterally and Yes Equal, round and reactive pupils present Cognition (Neuro): normal cognition Speech: normal speech Gait exam (Neuro): Normal gait present Motor exam (neuro): 5/5 motor strength present throughout Extrem: General: normal to inspection, full ROM, no joint enlargement and no pedal edema Objective Data Vital Signs Vital Signs: Vital Signs - 24 hr 10/07/20 12:00 10/07/20 13:18 10/07/20 14:00 Temperature 96.0 F L Pulse Rate 96 110 H 110 H Respiratory Rate 24 H Blood Pressure 137/92 H Pulse Oximetry 96 94 10/07/20 16:00 10/07/20 16:50 10/07/20 18:00 Temperature 96.5 F L Pulse Rate 112 H 107 H 120 H Respiratory Rate 22 H Blood Pressure 142/93 H Pulse Oximetry 96 93 10/07/20 19:55 10/07/20 20:00 10/07/20 21:30 Temperature 97.4 F L Pulse Rate 129 H 115 H 91 Respirat
[2020-10-08] MEDS: REMDESIVIR 100 MG/NS 250 ML 100 MG/250 ML BAG 250 MG IVPB (21:14)
[2020-10-08 21:42] LABS: Basophils Percent Auto 0.1 % (0.2-1.2); Hemoglobin 13.2 g/dL (14.0-18.0); Immature Granulocyte Absolute 0.32 K/mm3 (0.00-0.031); Immature Granulocyte Percent A 1.9 % (0-0.5); Lymphocytes Absolute Auto 0.52 K/mm3 (0.9-3.2); Lymphocytes Percent Auto 3.1 % (18.3-44.2); Mean Corpuscular HGB Conc 34.7 g/dl (32-36); Mean Corpuscular Hemoglobin 30.9 pg (26-34); Mean Platelet Volume 10.3 fl (7.4-10.4); Monocytes Absolute Auto 0.9 K/mm3 (0.1-0.6); Monocytes Percent Auto 5.6 % (2.6-8.5); Neutrophils Absolute Auto 14.7 K/mm3 (1.3-6.7); Neutrophils Percent Auto 89.3 % (45.5-73.1); Platelet Count Result 489 k/mm3 (150-375); Red Blood Count 4.27 M/mm3 (4.6-6.20); Red Cell Distribution Width 12.2 % (11.5-14.5); White Blood Count 16.5 K/mm3 (4.5-10.0)
[2020-10-08 21:53] LABS: Anion Gap 5 mmol/L (8-16); Blood Urea Nitrogen 19 mg/dL (9-20); Calcium 7.7 mg/dL (8.4-10.2); Carbon Dioxide 23 mmol/L (22-30); Chloride 102 mmol/L (98-107); Estimated CRCL calculation 97 ml/min; Estimated Glomerular Filt Rate > 60; Glucose 119 mg/dL (75-110); Sodium 130 mmol/L (137-145)
[2020-10-08 22:01] LABS: Hypochromasia 1+ (NORMAL); Platelet Estimate Increased (Adequate)
[2020-10-08] MEDS: PANTOPRAZOLE 40 MG TABLET PO (22:34)
[2020-10-08] MEDS: CALCIUM CARBONATE (TUMS) 500 MG (200 MG ELEMENTAL) PO (22:34)
[2020-10-09] VITALS (19 sets, daily range): BP systolic 111–124; BP diastolic 65–90; PULSE 89–125; RESP 24–32; TEMP 36.4–36.8; O2SAT 90–98
[2020-10-09] MEDS: ALBUTEROL SULFATE (*SP) INHALER 2 PUFF INHALATION ×6 (00:19→21:44)
[2020-10-09] MEDS: METOPROLOL TARTRATE 25 MG TABLET 75 MG PO ×3 (00:19→18:14)
[2020-10-09] MEDS: ENOXAPARIN 100 MG/ML SYRINGE 85 MG SUB-Q ×2 (05:37→18:14)
[2020-10-09 06:19] LABS: Alanine Aminotransferase 115 U/L (4-50); Estimated CRCL calculation 86 ml/min; Estimated Glomerular Filt Rate > 60
[2020-10-09 06:21] LABS: Osmolality, Urine 757 mOsm/kg (50-1200)
[2020-10-09 06:43] LABS: Prothrombin Time 14.1 Seconds (11.1-14.7)
[2020-10-09] MEDS: PANTOPRAZOLE 40 MG TABLET PO (09:27)
[2020-10-09] MEDS: DEXAMETHASONE SOD PHOS INJ 4 MG/ML VIAL 6 MG IV PUSH (09:27)
[2020-10-09 10:18] LABS: Basophils Percent Auto 0.2 % (0.2-1.2); Eosinophils Percent Auto 0.1 % (0-4.4); Hematocrit 37.5 % (42.0-52.0); Hemoglobin 13.1 g/dL (14.0-18.0); Immature Granulocyte Absolute 0.24 K/mm3 (0.00-0.031); Immature Granulocyte Percent A 1.6 % (0-0.5); Lymphocytes Absolute Auto 0.86 K/mm3 (0.9-3.2); Lymphocytes Percent Auto 5.6 % (18.3-44.2); Mean Corpuscular HGB Conc 34.9 g/dl (32-36); Mean Corpuscular Hemoglobin 31.4 pg (26-34); Mean Corpuscular Volume 89.9 fl (80-100); Mean Platelet Volume 10.2 fl (7.4-10.4); Monocytes Absolute Auto 0.4 K/mm3 (0.1-0.6); Monocytes Percent Auto 2.7 % (2.6-8.5); Neutrophils Absolute Auto 13.8 K/mm3 (1.3-6.7); Neutrophils Percent Auto 89.8 % (45.5-73.1); Platelet Count Result 465 k/mm3 (150-375); Red Blood Count 4.17 M/mm3 (4.6-6.20); Red Cell Distribution Width 12.4 % (11.5-14.5); White Blood Count 15.4 K/mm3 (4.5-10.0)
[2020-10-09 10:28] LABS: Anion Gap 6 mmol/L (8-16); Blood Urea Nitrogen 17 mg/dL (9-20); Calcium 7.8 mg/dL (8.4-10.2); Carbon Dioxide 24 mmol/L (22-30); Chloride 102 mmol/L (98-107); Estimated CRCL calculation 86 ml/min; Estimated Glomerular Filt Rate > 60; Glucose 155 mg/dL (75-110); Potassium 3.6 mmol/L (3.4-5.0); Sodium 132 mmol/L (137-145)
--- NOTE | 2020-10-09 15:31 | PM.IMPN ---
Progress Note: A&P Assessment and Plan (1) Acute respiratory failure with hypoxia: Code(s): J96.01 - Acute respiratory failure with hypoxia Status: Acute Assessment and Plan: Patient is currently on high-flow nasal cannula Airvo. 45 % oxygen Try and keep oxygen saturation 94% Supportive care Breathing treatments IMPROVED CONTINUE TO WEAN OFF OF OXYGEN CPAP AT NIGHTTIME (2) Pneumonia due to COVID-19 virus: Code(s): U07.1 - COVID-19; J12.82 - Pneumonia due to coronavirus disease 2019 Status: Acute Assessment and Plan: Patient receives convalescent plasma Remdesivir and Dexamethasone Rocephin and Zithromax Follow inflammatory markers LFTs reviewed (3) Atrial fibrillation with rapid ventricular response: Code(s): I48.91 - Unspecified atrial fibrillation Status: Acute Assessment and Plan: Off of Cardizem drip Appreciate cardiology note Anticoagulated with Lovenox On metoprolol (4) RONALD (obstructive sleep apnea): Code(s): G47.33 - Obstructive sleep apnea (adult) (pediatric) Status: Acute Assessment and Plan: Patient uses a CPAP at nighttime continue CPAP at nighttime (5) Essential hypertension: Code(s): I10 - Essential (primary) hypertension Status: Acute Assessment and Plan: Continue to monitor (6) Hyponatremia: Code(s): E87.1 - Hypo-osmolality and hyponatremia Status: Acute Assessment and Plan: Will send urine lytes Urine osmolality Free water restriction Patient with a positive balance SIADH more likely Random urine sodium was 93 sodium trending up IMPROVED Subjective Date/time seen: 10/09/20 15:31 I FEEL BETTER Review of Systems Constitutional: Constitutional: Reports body ache(s), Reports chills, Reports difficulty sleeping, Reports fatigue, Reports fever(s) and Reports poor appetite Endocrine: Endocrine: Reports fatigue Exam Narrative: Exam Narrative: patient with HFNC Airvo 45% saturating 95% Const: General: comfortable, no acute distress, well developed, alert, awake and ill appearing acutely Nutritional Appearance: average body habitus Orientation/consciousness: patient oriented x3 HENMT: Head: normal to inspection, normocephalic and atraumatic Ears: hearing grossly normal bilaterally Face and sinus: normal facial exam Eyes: General: appearance normal, both eyes and all related structures Pupils: Equal, round and reactive pupils present EOM: EOMs intact bilaterally Neck: Neck: full ROM, no lymphadenopathy and no JVD Thyroid: thyroid normal Lymphatic: no lymphadenopathy noted Resp: Effort & Inspection: normal respiratory effort and able to speak in complete sentences Auscultation: diminished lung sounds Cardio: Jugular venous distension: no JVD Rate: regular rate Rhythm: regular rhythm Heart sounds: S1 normal heart sound present and S2 normal heart sound present : General: Yes deferred Skin: Rashes: no rashes Wounds: no wounds Neuro: General: patient oriented x3 and CN's II-XI intact bilaterally Cranial nerves: Yes CN's II-XII intact bilaterally and Yes Equal, round and reactive pupils present Cognition (Neuro): normal cognition Speech: normal speech Gait exam (Neuro): Normal gait present Motor exam (neuro): 5/5 motor strength present throughout Extrem: General: normal to inspection, full ROM, no joint enlargement and no pedal edema Objective Data Vital Signs Vital Signs: Vital Signs - 24 hr 10/08/20 16:00 10/08/20 18:00 10/08/20 18:12 Temperature 97.8 F Pulse Rate 101 H 116 H 118 H Respiratory Rate 26 H Blood Pressure 112/73 Pulse Oximetry 94 10/08/20 20:00 10/08/20 21:00 10/08/20 22:00 Temperature 97.7 F Pulse Rate 105 H 118 H Respiratory Rate 24 H Blood Pressure 122/93 H Pulse Oximetry 92 96 10/09/20 00:00 10/09/20 00:19 10/09/20 02:00 Temperature 97.6 F Pulse Rate 107 H 115 H 93 Respiratory Rate 26 H
[2020-10-09] MEDS: REMDESIVIR 100 MG/NS 250 ML 100 MG/250 ML BAG 250 MG IVPB (22:07)
[2020-10-10] VITALS (24 sets, daily range): BP systolic 108–132; BP diastolic 72–78; PULSE 80–126; RESP 20–25; TEMP 36.3–36.6; O2SAT 88–98
[2020-10-10] MEDS: ALBUTEROL SULFATE (*SP) INHALER 2 PUFF INHALATION ×6 (00:30→20:51)
[2020-10-10] MEDS: METOPROLOL TARTRATE 25 MG TABLET 75 MG PO (00:31)
[2020-10-10] MEDS: ENOXAPARIN 100 MG/ML SYRINGE 85 MG SUB-Q ×2 (05:02→17:36)
--- NOTE | 2020-10-10 08:24 | PM.PNCARD ---
Progress Note: A&P Additional Plan 60-year-old man with persistent atrial fibrillation which occurred in the setting of jacinto virus pneumonia. I will transition him from metoprolol to sotalol today in hopes of chemically restoring sinus rhythm. If AFib persists low prior to discharge we should be planning DC cardioversion. Александр Jones MD [facility] Subjective Date/time seen: Date of service: 10/10/20 08:24 Interval history: Follow-up visit in this 60-year-old man with atrial fibrillation persistent in the setting of COVID pneumonia. Patient without any previous history of this. He is on metoprolol q.8 hours with reasonable heart rate control, he is anticoagulated with Lovenox but persists in atrial fib. Overall see states he is feeling some better he is still on high-flow oxygen because of COVID pneumonia. Exam Const: General: no acute distress Other: Pleasant white male appearing his stated age with high-flow nasal cannula oxygen no distress HENMT: Mouth: Yes moist mucous membranes Eyes: Sclera: sclerae normal Pupils: Equal, round and reactive pupils present Neck: Neck: supple and no JVD Thyroid: thyroid normal Resp: Effort & Inspection: normal respiratory effort Other: No rales a few central rhonchi noted Cardio: Rhythm: abnormal rhythm irregularly irregular GI: GI Palp: Yes Soft to palpation Auscultation: normal bowel sounds Skin: General skin exam: normal color Neuro: Cognition (Neuro): normal cognition Extrem: General: normal to inspection Objective Data Vital Signs Vital Signs: Vital Signs - 24 hr 10/09/20 08:40 10/09/20 09:27 10/09/20 10:00 Temperature Pulse Rate 112 H 120 H Respiratory Rate Blood Pressure Pulse Oximetry 93 10/09/20 12:00 10/09/20 13:40 10/09/20 14:00 Temperature 36.4 C Pulse Rate 89 125 H Respiratory Rate 24 H Blood Pressure 121/84 Pulse Oximetry 98 98 96 10/09/20 16:00 10/09/20 18:00 10/09/20 18:14 Temperature 36.7 C Pulse Rate 106 H 122 H 106 H Respiratory Rate 32 H Blood Pressure 124/74 Pulse Oximetry 96 10/09/20 19:45 10/09/20 20:00 10/09/20 22:00 Temperature 36.8 C Pulse Rate 99 91 105 H Respiratory Rate 26 H Blood Pressure 113/65 Pulse Oximetry 93 94 96 10/10/20 00:00 10/10/20 00:31 10/10/20 00:40 Temperature 36.3 C L Pulse Rate 109 H 95 Respiratory Rate 24 H Blood Pressure 112/75 Pulse Oximetry 96 90 10/10/20 00:57 10/10/20 02:00 10/10/20 04:00 Temperature 36.4 C L Pulse Rate 86 101 H Respiratory Rate 25 H Blood Pressure 122/72 Pulse Oximetry 96 93 10/10/20 05:00 10/10/20 07:53 Temperature 36.5 C Pulse Rate 117 H Respiratory Rate 22 H Blood Pressure 132/75 Pulse Oximetry 93 88 L Intake/Output Intake/Output: Intake & Output 10/07/20 10/08/20 10/09/20 10/10/20 23:59 23:59 23:59 23:59 Intake Total 4025 2070 2070 490 Output Total 1725 1825 0765 575 Balance 2305 094 -491 -20 Meds/Results Medications: Active Medications Generic Name Dose Route Start Last Admin Trade Name Freq PRN Reason Stop Dose Admin Acetaminophen 650 mg 10/05/20 11:47 Acetaminophen 325 Mg Tablet PO Q4H PRN Mild Pain (1-3) or Fever Albuterol 2 puff 10/05/20 20:00 10/10/20 05:01 Albuterol Sulfate (*Sp) Inhaler INHALATION 2 puff Q4HRT JASMINA Administration Calcium Carbonate 200 mg 10/08/20 22:19 10/08/20 22:34 Calcium Carbonate (Tums) 500 Mg (200 Mg Elemental) PO 200 mg Q6H PRN Administration Indigestion Dexamethasone Sodium Phosphate 6 mg 10/06/20 09:00 10/09/20 09:27 Dexamethasone Sod Phos Inj 4 Mg/Ml Vial IV PUSH 10/15/20 09:01 6 mg DAILY JASMINA Administration Enoxaparin Sodium 85 mg 10/05/20 18:00 10/10/20 05:02 Enoxaparin 100 Mg/Ml Syringe SUB-Q 85 mg Q12H JASMINA Administration Morphine Sulfate 4 mg 10/05/20 11:47 Morphine Sulfate (*Crx) 4 Mg/Ml Inj IV PUSH Q2H PRN Pain Rated 7-10 Ondansetron HCl
[2020-10-10] MEDS: DEXAMETHASONE SOD PHOS INJ 4 MG/ML VIAL 6 MG IV PUSH (08:38)
[2020-10-10] MEDS: SOTALOL HCL 80 MG TABLET PO ×2 (08:39→20:53)
[2020-10-10] MEDS: PANTOPRAZOLE 40 MG TABLET PO (08:39)
[2020-10-10 09:06] LABS: Hematocrit 35.8 % (42.0-52.0); Hemoglobin 12.9 g/dL (14.0-18.0); Mean Corpuscular Hemoglobin 31.3 pg (26-34); Mean Corpuscular Volume 86.9 fl (80-100); Platelet Count Result 482 k/mm3 (150-375); Red Blood Count 4.12 M/mm3 (4.6-6.20); Red Cell Distribution Width 12.2 % (11.5-14.5); White Blood Count 18.8 K/mm3 (4.5-10.0)
[2020-10-10 09:23] LABS: Anion Gap 4 mmol/L (8-16); Blood Urea Nitrogen 14 mg/dL (9-20); Calcium 7.7 mg/dL (8.4-10.2); Carbon Dioxide 25 mmol/L (22-30); Chloride 102 mmol/L (98-107); Estimated CRCL calculation 97 ml/min; Estimated Glomerular Filt Rate > 60; Glucose 137 mg/dL (75-110); Potassium 3.8 mmol/L (3.4-5.0); Sodium 131 mmol/L (137-145)
[2020-10-10 09:46] LABS: Alveolar/Arterial O2 Gradient 402.4 mmHg; Base Excess ABG 0.3 mEq/l (+/-2.0); Fractional Inspired Oxygen 70 %; HCO3 ABG 22.1 mEq/l (22.0-26.0); Oxygen Saturation ABG 95.2 % (95.0-100.0); Oxyhemoglobin 93.6 % THb (90.0-100.0); PCO2 ABG 27.9 mmHg (35.0-45.0); PO2 ABG 66.7 mmHg (80.0-100.0); PO2 FiO2 Ratio Arterial Blood 0.95 %; Total Hemoglobin 13.7 g/dL (12.0-18.0)
[2020-10-10 09:50] LABS: Device HIGH FLOW THERAPY; Modified Allen's Test Pass; Site Drawn RIGHT RADIAL; pH ABG 7.516 (7.350-7.450)
--- NOTE | 2020-10-10 12:17 | PM.IMPN ---
Progress Note: A&P Assessment and Plan (1) Acute respiratory failure with hypoxia: Code(s): J96.01 - Acute respiratory failure with hypoxia Status: Acute Assessment and Plan: Patient is currently on high-flow nasal cannula Airvo. 45 % oxygen Try and keep oxygen saturation 94% Supportive care Breathing treatments IMPROVED CONTINUE TO WEAN OFF OF OXYGEN CPAP AT NIGHTTIME BiPAP at nighttime ABG reviewed (2) Pneumonia due to COVID-19 virus: Code(s): U07.1 - COVID-19; J12.82 - Pneumonia due to coronavirus disease 2018 Status: Acute Assessment and Plan: Patient receives convalescent plasma Remdesivir and Dexamethasone Rocephin and Zithromax Follow inflammatory markers LFTs reviewed discontinued Rocephin Zithromax and doxycycline after 5 days of IV therapy (3) Atrial fibrillation with rapid ventricular response: Code(s): I48.91 - Unspecified atrial fibrillation Status: Acute Assessment and Plan: Off of Cardizem drip Appreciate cardiology note Anticoagulated with Lovenox On metoprolol patient's heart rate seems to be better controlled (4) RONALD (obstructive sleep apnea): Code(s): G47.33 - Obstructive sleep apnea (adult) (pediatric) Status: Acute Assessment and Plan: Patient uses a CPAP at nighttime continue CPAP at nighttime will do BiPAP tonight continuous (5) Essential hypertension: Code(s): I10 - Essential (primary) hypertension Status: Acute Assessment and Plan: Continue to monitor (6) Hyponatremia: Code(s): E87.1 - Hypo-osmolality and hyponatremia Status: Acute Assessment and Plan: Will send urine lytes Urine osmolality Free water restriction Patient with a positive balance SIADH more likely Random urine sodium was 93 sodium trending up IMPROVED continue to monitor Subjective Date/time seen: 10/10/20 12:17 I feel okay Interval history: Follow-up visit in this 60-year-old man with atrial fibrillation persistent in the setting of COVID pneumonia. Patient without any previous history of this. He is on metoprolol q.8 hours with reasonable heart rate control, he is anticoagulated with Lovenox but persists in atrial fib. Overall see states he is feeling some better he is still on high-flow oxygen because of COVID pneumonia. Patient states that he feels okay had a good night rest Review of Systems Constitutional: Constitutional: Reports body ache(s), Reports chills, Reports difficulty sleeping, Reports fatigue, Reports fever(s) and Reports poor appetite Endocrine: Endocrine: Reports fatigue Exam Narrative: Exam Narrative: patient with HFNC Airvo 45% saturating 95% Const: General: comfortable, no acute distress, well developed, alert, awake and ill appearing acutely Nutritional Appearance: average body habitus Orientation/consciousness: patient oriented x3 HENMT: Head: normal to inspection, normocephalic and atraumatic Ears: hearing grossly normal bilaterally Face and sinus: normal facial exam Eyes: General: appearance normal, both eyes and all related structures Pupils: Equal, round and reactive pupils present EOM: EOMs intact bilaterally Neck: Neck: full ROM, no lymphadenopathy and no JVD Thyroid: thyroid normal Lymphatic: no lymphadenopathy noted Resp: Effort & Inspection: normal respiratory effort and able to speak in complete sentences Auscultation: diminished lung sounds Cardio: Jugular venous distension: no JVD Rate: regular rate Rhythm: regular rhythm Heart sounds: S1 normal heart sound present and S2 normal heart sound present : General: Yes deferred Skin: Rashes: no rashes Wounds: no wounds Neuro: General: patient oriented x3 and CN's II-XI intact bilaterally Cranial nerves: Yes CN's II-XII intact bilaterally and Yes Equal, round and reactive pupils present Cognition (Neuro): normal cognition Speech: normal speech Gait exam (Neuro): Normal gait presen
--- NOTE | 2020-10-10 23:00 | ECG_ITS ---
Measurements Intervals [place] Rate: 87 P: [place]: 0 QRS: 66 QRSD: 76 T: 39 QT: 400 QTc: 482 Interpretive Statements ATRIAL FIBRILLATION DELAYED PRECORDIAL R/S TRANSITION BASELINE ARTIFACT- II, III, AVF ABNORMAL ECG Electronically Signed On 10-11-2020 19:28:43 CDT by Javier Castle D.O.
[2020-10-11] VITALS (18 sets, daily range): BP systolic 94–144; BP diastolic 53–84; PULSE 60–103; RESP 20–24; TEMP 36.2–37.4; O2SAT 91–95
[2020-10-11] MEDS: ALBUTEROL SULFATE (*SP) INHALER 2 PUFF INHALATION ×7 (01:11→23:51)
[2020-10-11] MEDS: ENOXAPARIN 100 MG/ML SYRINGE 85 MG SUB-Q ×2 (05:25→18:11)
[2020-10-11] MEDS: PANTOPRAZOLE 40 MG TABLET PO (09:46)
[2020-10-11] MEDS: SOTALOL HCL 80 MG TABLET PO ×2 (09:46→20:36)
[2020-10-11] MEDS: DEXAMETHASONE SOD PHOS INJ 4 MG/ML VIAL 6 MG IV PUSH (09:47)
[2020-10-11 10:32] LABS: Basophils Percent Auto 0.1 % (0.2-1.2); Eosinophils Absolute Auto 0.1 K/mm3 (0-0.3); Eosinophils Percent Auto 0.4 % (0-4.4); Hematocrit 36.1 % (42.0-52.0); Hemoglobin 12.6 g/dL (14.0-18.0); Immature Granulocyte Absolute 0.42 K/mm3 (0.00-0.031); Immature Granulocyte Percent A 2.2 % (0-0.5); Lymphocytes Absolute Auto 0.53 K/mm3 (0.9-3.2); Lymphocytes Percent Auto 2.8 % (18.3-44.2); Mean Corpuscular HGB Conc 34.9 g/dl (32-36); Mean Corpuscular Hemoglobin 31.3 pg (26-34); Mean Corpuscular Volume 89.6 fl (80-100); Mean Platelet Volume 9.8 fl (7.4-10.4); Monocytes Absolute Auto 0.4 K/mm3 (0.1-0.6); Monocytes Percent Auto 1.9 % (2.6-8.5); Neutrophils Absolute Auto 17.7 K/mm3 (1.3-6.7); Neutrophils Percent Auto 92.6 % (45.5-73.1); Platelet Count Result 463 k/mm3 (150-375); Red Blood Count 4.03 M/mm3 (4.6-6.20); Red Cell Distribution Width 12.4 % (11.5-14.5); White Blood Count 19.1 K/mm3 (4.5-10.0)
[2020-10-11 10:42] LABS: Anion Gap 4 mmol/L (8-16); Blood Urea Nitrogen 15 mg/dL (9-20); Calcium 7.8 mg/dL (8.4-10.2); Carbon Dioxide 24 mmol/L (22-30); Chloride 102 mmol/L (98-107); Estimated CRCL calculation 97 ml/min; Estimated Glomerular Filt Rate > 60; Glucose 164 mg/dL (75-110); Potassium 3.6 mmol/L (3.4-5.0); Sodium 130 mmol/L (137-145)
--- NOTE | 2020-10-11 11:07 | PM.IMPN ---
Progress Note: A&P Assessment and Plan (1) Acute respiratory failure with hypoxia: Code(s): J96.01 - Acute respiratory failure with hypoxia Status: Acute Assessment and Plan: Patient is currently on high-flow nasal cannula Airvo. 45 % oxygen Try and keep oxygen saturation 94% Supportive care Breathing treatments IMPROVED CONTINUE TO WEAN OFF OF OXYGEN CPAP AT NIGHTTIME BiPAP at nighttime ABG reviewed Patient did not want to wear his BiPAP last night prefers Airvo (2) Pneumonia due to COVID-19 virus: Code(s): U07.1 - COVID-19; J12.82 - Pneumonia due to coronavirus disease 2018 Status: Acute Assessment and Plan: Patient receives convalescent plasma Remdesivir and Dexamethasone Rocephin and Zithromax Follow inflammatory markers LFTs reviewed discontinued Rocephin Zithromax and doxycycline after 5 days of IV therapy (3) Atrial fibrillation with rapid ventricular response: Code(s): I48.91 - Unspecified atrial fibrillation Status: Acute Assessment and Plan: Off of Cardizem drip Appreciate cardiology note Anticoagulated with Lovenox On metoprolol patient's heart rate seems to be better controlled (4) RONALD (obstructive sleep apnea): Code(s): G47.33 - Obstructive sleep apnea (adult) (pediatric) Status: Acute Assessment and Plan: Patient uses a CPAP at nighttime continue CPAP at nighttime will do BiPAP tonight continuous Patient did not wear the BiPAP last night prefers Airvo (5) Essential hypertension: Code(s): I10 - Essential (primary) hypertension Status: Acute Assessment and Plan: Continue to monitor (6) Hyponatremia: Code(s): E87.1 - Hypo-osmolality and hyponatremia Status: Acute Assessment and Plan: Will send urine lytes Urine osmolality Free water restriction Patient with a positive balance SIADH more likely Random urine sodium was 93 sodium trending up IMPROVED continue to monitor Increased free water restriction to 1800 Awaiting labs Subjective Date/time seen: 10/11/20 11:07 I feel fine Interval history: Follow-up visit in this 60-year-old man with atrial fibrillation persistent in the setting of COVID pneumonia. Patient without any previous history of this. He is on metoprolol q.8 hours with reasonable heart rate control, he is anticoagulated with Lovenox but persists in atrial fib. Overall see states he is feeling some better he is still on high-flow oxygen because of COVID pneumonia. Patient states that he feels okay had a good night rest Patient did not wear BiPAP last night he states that he prefers Airvo. Review of Systems Constitutional: Constitutional: Reports body ache(s), Reports chills, Reports difficulty sleeping, Reports fatigue, Reports fever(s) and Reports poor appetite Endocrine: Endocrine: Reports fatigue Exam Narrative: Exam Narrative: patient with HFNC Airvo 45% saturating 95% Const: General: comfortable, no acute distress, well developed, alert, awake and ill appearing acutely Nutritional Appearance: average body habitus Orientation/consciousness: patient oriented x3 HENMT: Head: normal to inspection, normocephalic and atraumatic Ears: hearing grossly normal bilaterally Face and sinus: normal facial exam Eyes: General: appearance normal, both eyes and all related structures Pupils: Equal, round and reactive pupils present EOM: EOMs intact bilaterally Neck: Neck: full ROM, no lymphadenopathy and no JVD Thyroid: thyroid normal Lymphatic: no lymphadenopathy noted Resp: Effort & Inspection: normal respiratory effort and able to speak in complete sentences Auscultation: diminished lung sounds Cardio: Jugular venous distension: no JVD Rate: regular rate Rhythm: regular rhythm Heart sounds: S1 normal heart sound present and S2 normal heart sound present : General: Yes deferred Skin: Rashes: no rashes Wounds: no wounds Neuro: General: p
--- NOTE | 2020-10-11 12:00 | ECG_ITS ---
Measurements Intervals [place] Rate: 69 P: 54 MN: 136 QRS: 18 QRSD: 80 T: 14 QT: 450 QTc: 483 Interpretive Statements SINUS RHYTHM BORDERLINE T WAVE ABNORMALITY- INFERIOR LEADS BASELINE ARTIFACT- I, III, AVR, AVL, AVF BORDERLINE ECG Electronically Signed On 10-11-2020 19:17:05 CDT by Javier Castle D.O.
--- NOTE | 2020-10-11 14:23 | PM.PNCARD ---
Progress Note: A&P Additional Plan 60-year-old man with:3 Atrial fibrillation in the setting of Coronavirus pneumonia. Medical therapy with sotalol has restored sinus rhythm. This will be continued and will continue to watch telemetry while he is in the hospital. Александр Jones MD [facility] Subjective Date/time seen: Date of service: 10/11/20 14:23 Interval history: Follow-up visit in this 60-year-old man with: Atrial fibrillation in the set of jacinto virus pneumonia. Patient was treated with metoprolol for rate control but persisted in atrial fibrillation. I started him on sotalol yesterday and he has now converted to sinus rhythm. Still in the hospital on some higher flow oxygen but does demands are coming down some. Told the patient that DC cardioversion appears will not be necessary he was of course happy about this. Exam Const: General: comfortable and no acute distress Other: Pleasant man appearing his stated age wearing high-flow nasal cannula oxygen otherwise comfortable HENMT: Mouth: Yes moist mucous membranes Eyes: Sclera: sclerae normal Pupils: Equal, round and reactive pupils present Neck: Neck: supple Resp: Effort & Inspection: normal respiratory effort Other: Few central rhonchi are noted Cardio: Rate: regular rate Rhythm: regular rhythm GI: GI Palp: Yes Soft to palpation Auscultation: normal bowel sounds Neuro: Cognition (Neuro): normal cognition Extrem: General: normal to inspection Objective Data Vital Signs Vital Signs: Vital Signs - 24 hr 10/10/20 15:58 10/10/20 16:00 10/10/20 18:00 Temperature 36.6 C Pulse Rate 100 104 H 102 H Respiratory Rate 20 Blood Pressure 108/75 Pulse Oximetry 91 98 10/10/20 20:00 10/10/20 20:53 10/10/20 22:00 Temperature 36.6 C Pulse Rate 100 80 97 Respiratory Rate 20 Blood Pressure 110/78 Pulse Oximetry 91 10/10/20 23:41 10/10/20 23:52 10/11/20 00:00 Temperature 36.3 C L Pulse Rate 97 87 Respiratory Rate 20 Blood Pressure 127/84 Pulse Oximetry 93 96 91 10/11/20 02:00 10/11/20 04:00 10/11/20 06:00 Temperature 36.6 C Pulse Rate 89 93 96 Respiratory Rate 20 Blood Pressure 144/70 H Pulse Oximetry 93 10/11/20 08:00 10/11/20 09:46 10/11/20 10:00 Temperature 37.4 C Pulse Rate 103 H 88 86 Respiratory Rate 22 H Blood Pressure 137/80 Pulse Oximetry 91 10/11/20 12:00 Temperature 37.2 C Pulse Rate 77 Respiratory Rate 24 H Blood Pressure 116/54 L Pulse Oximetry 91 Intake/Output Intake/Output: Intake & Output 10/08/20 10/09/20 10/10/20 10/11/20 23:59 23:59 23:59 23:59 Intake Total 2070 2070 1090 630 Output Total 1826 9019 1519 950 Balance 245 -725 -425 -320 Meds/Results Medications: Active Medications Generic Name Dose Route Start Last Admin Trade Name Freq PRN Reason Stop Dose Admin Acetaminophen 650 mg 10/05/20 11:47 Acetaminophen 325 Mg Tablet PO Q4H PRN Mild Pain (1-3) or Fever Albuterol 2 puff 10/05/20 20:00 10/11/20 09:48 Albuterol Sulfate (*Sp) Inhaler INHALATION 2 puff Q4HRT JASMINA Administration Calcium Carbonate 200 mg 10/08/20 22:19 10/08/20 22:34 Calcium Carbonate (Tums) 500 Mg (200 Mg Elemental) PO 200 mg Q6H PRN Administration Indigestion Dexamethasone Sodium Phosphate 6 mg 10/06/20 09:00 10/11/20 09:47 Dexamethasone Sod Phos Inj 4 Mg/Ml Vial IV PUSH 10/15/20 09:01 6 mg DAILY JASMINA Administration Enoxaparin Sodium 85 mg 10/05/20 18:00 10/11/20 05:25 Enoxaparin 100 Mg/Ml Syringe SUB-Q 85 mg Q12H JASMINA Administration Morphine Sulfate 4 mg 10/05/20 11:47 Morphine Sulfate (*Crx) 4 Mg/Ml Inj IV PUSH Q2H PRN Pain Rated 7-10 Ondansetron HCl 4 mg 10/05/20 11:47 Ondansetron Inj 4 Mg/2 Ml Vial IV PUSH Q4H PRN Nausea Pantoprazole Sodium 40 mg 10/09/20 09:00 10/11/20 09:46 Pantoprazole 40 Mg Tablet PO 40 mg QAM JASMINA Administration Sotalol HCl 80 mg
[2020-10-12] VITALS (22 sets, daily range): BP systolic 119–158; BP diastolic 61–77; PULSE 59–77; RESP 18–28; TEMP 35.8–36.7; O2SAT 90–100; BMI 52.3
[2020-10-12] MEDS: ALBUTEROL SULFATE (*SP) INHALER 2 PUFF INHALATION ×6 (05:34→23:29)
[2020-10-12] MEDS: ENOXAPARIN 100 MG/ML SYRINGE 85 MG SUB-Q ×2 (05:34→17:36)
[2020-10-12] MEDS: SOTALOL HCL 80 MG TABLET PO ×2 (08:03→20:10)
[2020-10-12] MEDS: PANTOPRAZOLE 40 MG TABLET PO (08:03)
[2020-10-12] MEDS: DEXAMETHASONE SOD PHOS INJ 4 MG/ML VIAL 6 MG IV PUSH (08:03)
--- NOTE | 2020-10-12 10:34 | PM.IMPN ---
Progress Note: A&P Assessment and Plan (1) Acute respiratory failure with hypoxia: Code(s): J96.01 - Acute respiratory failure with hypoxia Status: Acute Assessment and Plan: Patient is currently on high-flow nasal cannula Airvo. 45 % oxygen Try and keep oxygen saturation 94% Supportive care Breathing treatments IMPROVED CONTINUE TO WEAN OFF OF OXYGEN CPAP AT NIGHTTIME BiPAP at nighttime ABG reviewed Patient did not want to wear his BiPAP last night prefers Airvo Down to 35% on Airvo (2) Pneumonia due to COVID-19 virus: Code(s): U07.1 - COVID-19; J12.82 - Pneumonia due to coronavirus disease 2019 Status: Acute Assessment and Plan: Patient receives convalescent plasma Remdesivir and Dexamethasone Rocephin and Zithromax Follow inflammatory markers LFTs reviewed discontinued Rocephin Zithromax and doxycycline after 5 days of IV therapy (3) Atrial fibrillation with rapid ventricular response: Code(s): I48.91 - Unspecified atrial fibrillation Status: Acute Assessment and Plan: Off of Cardizem drip Appreciate cardiology note Anticoagulated with Lovenox On metoprolol patient's heart rate seems to be better controlled (4) RONALD (obstructive sleep apnea): Code(s): G47.33 - Obstructive sleep apnea (adult) (pediatric) Status: Acute Assessment and Plan: Patient uses a CPAP at nighttime continue CPAP at nighttime will do BiPAP tonight continuous Patient did not wear the BiPAP last night prefers Airvo Patient has been using Airvo at nighttime (5) Essential hypertension: Code(s): I10 - Essential (primary) hypertension Status: Acute Assessment and Plan: Continue to monitor (6) Hyponatremia: Code(s): E87.1 - Hypo-osmolality and hyponatremia Status: Acute Assessment and Plan: Will send urine lytes Urine osmolality Free water restriction Patient with a positive balance SIADH more likely Random urine sodium was 93 sodium trending up IMPROVED continue to monitor Increased free water restriction to 1800 Awaiting labs Patient seems to have a negative balance as where recorded data however sodium is at 130 suspect further dilution due to IV fluids. Continue to monitor Subjective Date/time seen: 10/12/20 10:34 I FEEL MUCH BETTER Interval history: Follow-up visit in this 60-year-old man with: Atrial fibrillation in the set of jacinto virus pneumonia. Patient was treated with metoprolol for rate control but persisted in atrial fibrillation. I started him on sotalol yesterday and he has now converted to sinus rhythm. Still in the hospital on some higher flow oxygen but does demands are coming down some. Told the patient that DC cardioversion appears will not be necessary he was of course happy about this. PATIENT IS DOWN TO 35% OF OXYGEN BY AIRVO Review of Systems Constitutional: Constitutional: Reports body ache(s), Reports chills, Denies difficulty sleeping, Reports fatigue, Reports fever(s) and Reports poor appetite Respiratory: Respiratory: Reports dyspnea on exertion Endocrine: Endocrine: Reports fatigue Exam Narrative: Exam Narrative: patient with HFNC Airvo 35% saturating at 95% Const: General: comfortable, no acute distress, well developed, alert, awake and ill appearing acutely Nutritional Appearance: average body habitus Orientation/consciousness: patient oriented x3 HENMT: Head: normal to inspection, normocephalic and atraumatic Ears: hearing grossly normal bilaterally Face and sinus: normal facial exam Eyes: General: appearance normal, both eyes and all related structures Pupils: Equal, round and reactive pupils present EOM: EOMs intact bilaterally Neck: Neck: full ROM, no lymphadenopathy and no JVD Thyroid: thyroid normal Lymphatic: no lymphadenopathy noted Resp: Effort & Inspection: normal respiratory effort and able to speak in complete sentences Auscultation: diminished lung
--- NOTE | 2020-10-12 11:35 | PCDIET ---
Weekly nutritional screen. Patient is tolerating current diet, regular with RN fluid restriction, eating well, 100% of all meals. No weight loss reported. Pt at healthy BMI. Oxygen requirements decreasing. No nutritional needs at this time.
--- NOTE | 2020-10-12 12:22 | PM.PNCARD ---
Progress Note: A&P Additional Plan 60-year-old man with: Atrial fibrillation in the setting of jacinto virus pneumonia. AFib is quiescent on sotalol treatment and seems to be maintaining sinus rhythm for the last couple of days. We will follow him peripherally with you and upon discharge will arrange follow-up in our office and determine if antiarrhythmic therapy can be discontinued as he recovers from his pneumonia. Александр Jones MD [facility] Subjective Date/time seen: Date of service: 10/12/20 12:22 Interval history: Follow-up visit in this 60-year-old man with atrial fibrillation in the setting of jacinto virus pneumonia. He was started on sotalol for the weekend and converted medically to sinus rhythm. No cardiac complaints today. Patient is hoping to go home as soon as his oxygenation is adequate. Exam Const: General: uncomfortable HENMT: Mouth: Yes moist mucous membranes Eyes: Sclera: sclerae normal Pupils: Equal, round and reactive pupils present Neck: Neck: supple and no JVD Thyroid: thyroid normal Resp: Effort & Inspection: normal respiratory effort Auscultation: clear to auscultation bilaterally Other: Scattered rhonchi noted no pulmonary rales Cardio: Rate: regular rate Rhythm: regular rhythm GI: GI Palp: Yes Soft to palpation Auscultation: normal bowel sounds Skin: General skin exam: normal color Neuro: Cognition (Neuro): normal cognition Extrem: General: normal to inspection Objective Data Vital Signs Vital Signs: Vital Signs - 24 hr 10/11/20 14:00 10/11/20 15:52 10/11/20 16:00 Temperature 36.6 C Pulse Rate 78 71 Respiratory Rate 22 H Blood Pressure 107/53 L Pulse Oximetry 91 94 10/11/20 18:00 10/11/20 20:00 10/11/20 20:30 Temperature 36.2 C L Pulse Rate 73 69 Respiratory Rate 20 Blood Pressure 94/69 L Pulse Oximetry 94 93 10/11/20 20:36 10/11/20 22:00 10/11/20 23:37 Temperature Pulse Rate 74 60 Respiratory Rate Blood Pressure Pulse Oximetry 93 10/12/20 00:00 10/12/20 02:00 10/12/20 03:00 Temperature 36.7 C Pulse Rate 69 60 Respiratory Rate 18 Blood Pressure 130/77 Pulse Oximetry 99 91 10/12/20 04:00 10/12/20 06:00 10/12/20 07:57 Temperature 36.7 C Pulse Rate 59 L 61 Respiratory Rate 20 Blood Pressure 126/74 Pulse Oximetry 100 95 10/12/20 08:00 10/12/20 08:07 10/12/20 10:00 Temperature 35.8 C L Pulse Rate 73 69 77 Respiratory Rate 21 H Blood Pressure 125/67 Pulse Oximetry 92 92 10/12/20 11:53 10/12/20 12:00 Temperature 35.8 C L Pulse Rate 73 Respiratory Rate 22 H Blood Pressure 119/66 Pulse Oximetry 91 92 Intake/Output Intake/Output: Intake & Output 10/09/20 10/10/20 10/11/20 10/12/20 23:59 23:59 23:59 23:59 Intake Total 2070 1090 2030 240 Output Total 2795 1515 1650 780 Balance -725 -425 803 -727 Meds/Results Medications: Active Medications Generic Name Dose Route Start Last Admin Trade Name Freq PRN Reason Stop Dose Admin Acetaminophen 650 mg 10/05/20 11:47 Acetaminophen 325 Mg Tablet PO Q4H PRN Mild Pain (1-3) or Fever Albuterol 2 puff 10/05/20 20:00 10/12/20 11:46 Albuterol Sulfate (*Sp) Inhaler INHALATION 2 puff Q4HRT JASMINA Administration Calcium Carbonate 200 mg 10/08/20 22:19 10/08/20 22:34 Calcium Carbonate (Tums) 500 Mg (200 Mg Elemental) PO 200 mg Q6H PRN Administration Indigestion Dexamethasone Sodium Phosphate 6 mg 10/06/20 09:00 10/12/20 08:03 Dexamethasone Sod Phos Inj 4 Mg/Ml Vial IV PUSH 10/15/20 09:01 6 mg DAILY JASMINA Administration Enoxaparin Sodium 85 mg 10/05/20 18:00 10/12/20 05:34 Enoxaparin 100 Mg/Ml Syringe SUB-Q 85 mg Q12H JASMINA Administration Morphine Sulfate 4 mg 10/05/20 11:47 Morphine Sulfate (*Crx) 4 Mg/Ml Inj IV PUSH Q2H PRN Pain Rated 7-10 Ondansetron HCl 4 mg 10/05/20 11:47 Ondansetron Inj 4 Mg/2 Ml Vial IV PUSH Q4H PRN Nausea
[2020-10-12 12:52] LABS: Basophils Percent Auto 0.2 % (0.2-1.2); Eosinophils Percent Auto 0.1 % (0-4.4); Hematocrit 35.4 % (42.0-52.0); Hemoglobin 12.4 g/dL (14.0-18.0); Immature Granulocyte Absolute 0.32 K/mm3 (0.00-0.031); Immature Granulocyte Percent A 1.8 % (0-0.5); Lymphocytes Absolute Auto 0.26 K/mm3 (0.9-3.2); Lymphocytes Percent Auto 1.4 % (18.3-44.2); Mean Corpuscular Hemoglobin 31.6 pg (26-34); Mean Corpuscular Volume 90.3 fl (80-100); Mean Platelet Volume 10.2 fl (7.4-10.4); Monocytes Absolute Auto 0.3 K/mm3 (0.1-0.6); Monocytes Percent Auto 1.5 % (2.6-8.5); Neutrophils Absolute Auto 17.2 K/mm3 (1.3-6.7); Platelet Count Result 444 k/mm3 (150-375); Red Blood Count 3.92 M/mm3 (4.6-6.20); Red Cell Distribution Width 12.6 % (11.5-14.5); White Blood Count 18.1 K/mm3 (4.5-10.0)
[2020-10-12 13:11] LABS: Anion Gap 6 mmol/L (8-16); Blood Urea Nitrogen 17 mg/dL (9-20); Calcium 7.9 mg/dL (8.4-10.2); Carbon Dioxide 24 mmol/L (22-30); Chloride 102 mmol/L (98-107); Estimated CRCL calculation 86 ml/min; Estimated Glomerular Filt Rate > 60; Glucose 172 mg/dL (75-110); Potassium 4.1 mmol/L (3.4-5.0); Sodium 132 mmol/L (137-145)
[2020-10-13] VITALS (19 sets, daily range): BP systolic 103–128; BP diastolic 48–78; PULSE 57–74; RESP 18–30; TEMP 36.3–36.9; O2SAT 87–95
[2020-10-13] MEDS: ALBUTEROL SULFATE (*SP) INHALER 2 PUFF INHALATION ×5 (05:44→20:40)
[2020-10-13] MEDS: ENOXAPARIN 100 MG/ML SYRINGE 85 MG SUB-Q ×2 (05:44→16:57)
[2020-10-13 06:20] LABS: Hemoglobin 12.4 g/dL (14.0-18.0); Mean Corpuscular HGB Conc 34.4 g/dl (32-36); Mean Corpuscular Hemoglobin 31.3 pg (26-34); Mean Corpuscular Volume 90.9 fl (80-100); Mean Platelet Volume 9.9 fl (7.4-10.4); Platelet Count Result 445 k/mm3 (150-375); Red Blood Count 3.96 M/mm3 (4.6-6.20); Red Cell Distribution Width 12.4 % (11.5-14.5); White Blood Count 16.3 K/mm3 (4.5-10.0)
[2020-10-13 06:33] LABS: Anion Gap 0 mmol/L (8-16); Blood Urea Nitrogen 16 mg/dL (9-20); Calcium 8.1 mg/dL (8.4-10.2); Carbon Dioxide 32 mmol/L (22-30); Chloride 100 mmol/L (98-107); Estimated CRCL calculation 69 ml/min; Estimated Glomerular Filt Rate > 60; Glucose 81 mg/dL (75-110); Potassium 4.3 mmol/L (3.4-5.0); Sodium 132 mmol/L (137-145)
[2020-10-13 07:13] LABS: Band Neutrophils Percent 1 % (0-6); Lymphocytes Absolute Manual 0.81 K/mm3 (1.1-4.5); Monocytes Absolute Manual 0.65 K/mm3 (0.1-0.90); Monocytes Percent Manual 4 % (3-9); Neutrophils Absolute Manual 14.83 K/mm3 (1.3-6.7); Neutrophils Percent Manual 90 % (46-73); Platelet Estimate Adequate (Adequate); Total Cells Counted 100
[2020-10-13] MEDS: DEXAMETHASONE SOD PHOS INJ 4 MG/ML VIAL 6 MG IV PUSH (08:29)
[2020-10-13] MEDS: PANTOPRAZOLE 40 MG TABLET PO (08:30)
[2020-10-13] MEDS: SOTALOL HCL 80 MG TABLET PO ×2 (08:30→20:40)
--- NOTE | 2020-10-13 16:26 | PM.IMPN ---
Progress Note: A&P Assessment and Plan (1) Acute respiratory failure with hypoxia: Code(s): J96.01 - Acute respiratory failure with hypoxia Status: Acute Assessment and Plan: Patient is currently on high-flow nasal cannula Airvo. Try to wean off slowly, continue prone positions and spirometry (2) Pneumonia due to COVID-19 virus: Code(s): U07.1 - COVID-19; J12.82 - Pneumonia due to coronavirus disease 2018 Status: Acute Assessment and Plan: Pt sp treatments for covid see below Convalescent plasma Remdesivir and Dexamethasone Rocephin and Zithromax (3) Atrial fibrillation with rapid ventricular response: Code(s): I48.91 - Unspecified atrial fibrillation Status: Acute Assessment and Plan: Off of Cardizem drip Cardiology rounding Anticoagulated with Lovenox On metoprolol patient's heart rate seems to be better controlled (4) RONALD (obstructive sleep apnea): Code(s): G47.33 - Obstructive sleep apnea (adult) (pediatric) Status: Acute Assessment and Plan: Patient uses a CPAP at nighttime continue CPAP at nighttime cpap v airvo (5) Essential hypertension: Code(s): I10 - Essential (primary) hypertension Status: Acute Assessment and Plan: Continue to monitor (6) Hyponatremia: Code(s): E87.1 - Hypo-osmolality and hyponatremia Status: Acute Assessment and Plan: Continue to monitor Subjective Date/time seen: 10/13/20 16:26 Interval history: Pt is being treated for covid pneumonia and AF Pt is on high flow oxygen Fi02 of 50% pt is improving slowly seen by medical and cardiology teams. Pt is much the same still needing alot of oxygen advised prone positions Review of Systems Review of Systems: All systems reviewed & are unremarkable except as noted in HPI and below Exam Const: General: comfortable, no acute distress, well developed, alert, awake and ill appearing acutely Nutritional Appearance: average body habitus Orientation/consciousness: patient oriented x3 HENMT: Head: normal to inspection, normocephalic and atraumatic Ears: hearing grossly normal bilaterally Face and sinus: normal facial exam Eyes: General: appearance normal, both eyes and all related structures Pupils: Equal, round and reactive pupils present EOM: EOMs intact bilaterally Neck: Neck: full ROM, no lymphadenopathy and no JVD Thyroid: thyroid normal Lymphatic: no lymphadenopathy noted Resp: Effort & Inspection: normal respiratory effort and able to speak in complete sentences Auscultation: diminished lung sounds Cardio: Jugular venous distension: no JVD Rate: regular rate Rhythm: regular rhythm Heart sounds: S1 normal heart sound present and S2 normal heart sound present : General: Yes deferred Skin: Rashes: no rashes Wounds: no wounds Neuro: General: patient oriented x3 and CN's II-XI intact bilaterally Cranial nerves: Yes CN's II-XII intact bilaterally and Yes Equal, round and reactive pupils present Cognition (Neuro): normal cognition Speech: normal speech Gait exam (Neuro): Normal gait present Motor exam (neuro): 5/5 motor strength present throughout Extrem: General: normal to inspection, full ROM, no joint enlargement and no pedal edema Objective Data Vital Signs Vital Signs: Vital Signs - 24 hr 10/12/20 16:48 10/12/20 18:00 10/12/20 20:00 Temperature 36.3 C L 36.0 C L Pulse Rate 69 71 70 Respiratory Rate 24 H 18 Blood Pressure 120/65 125/69 Pulse Oximetry 90 90 10/12/20 20:10 10/12/20 21:17 10/12/20 22:00 Temperature Pulse Rate 67 59 L Respiratory Rate Blood Pressure Pulse Oximetry 90 10/13/20 00:00 10/13/20 02:00 10/13/20 02:13 Temperature 36.3 C L Pulse Rate 60 59 L 57 L Respiratory Rate 20 Blood Pressure 125/67 Pulse Oximetry 88 L 93 10/13/20 02:55 10/13/20 03:54 10/13/20 04:00 Temperature 36.3 C L Pulse Rate 66 Respiratory Rate 20 Blood
[2020-10-14] VITALS (24 sets, daily range): BP systolic 123–139; BP diastolic 69–78; PULSE 52–83; RESP 18–34; TEMP 35.8–36.5; O2SAT 88–98
[2020-10-14] MEDS: ENOXAPARIN 100 MG/ML SYRINGE 85 MG SUB-Q ×2 (06:38→18:50)
[2020-10-14] MEDS: ALBUTEROL SULFATE (*SP) INHALER 2 PUFF INHALATION ×2 (08:27→21:09)
[2020-10-14] MEDS: PANTOPRAZOLE 40 MG TABLET PO (09:24)
[2020-10-14] MEDS: SOTALOL HCL 80 MG TABLET PO ×2 (09:24→21:10)
[2020-10-14] MEDS: DEXAMETHASONE SOD PHOS INJ 4 MG/ML VIAL 6 MG IV PUSH (09:25)
[2020-10-14 10:20] LABS: Hematocrit 40.1 % (42.0-52.0); Hemoglobin 13.5 g/dL (14.0-18.0); Mean Corpuscular HGB Conc 33.7 g/dl (32-36); Mean Corpuscular Volume 92.2 fl (80-100); Mean Platelet Volume 10.2 fl (7.4-10.4); Platelet Count Result 473 k/mm3 (150-375); Red Blood Count 4.35 M/mm3 (4.6-6.20); Red Cell Distribution Width 12.5 % (11.5-14.5); White Blood Count 20.8 K/mm3 (4.5-10.0)
[2020-10-14 10:32] LABS: Alanine Aminotransferase 222 U/L (4-50); Estimated CRCL calculation 83 ml/min; Estimated Glomerular Filt Rate > 60
[2020-10-14 10:34] LABS: Prothrombin Time 14.2 Seconds (11.1-14.7)
[2020-10-14 10:54] LABS: Lymphocytes Absolute Manual 0.62 K/mm3 (1.1-4.5); Monocytes Percent Manual 1 % (3-9); Neutrophils Percent Manual 96 % (46-73); Platelet Estimate Adequate (Adequate); Total Cells Counted 100
--- NOTE | 2020-10-14 11:00 | PM.CNPUL ---
Assessment and Plan Assessment and plan (1) Pneumonia due to COVID-19 virus: Code(s): U07.1 - COVID-19; J12.82 - Pneumonia due to coronavirus disease 2019 Status: Acute Assessment and Plan: Patient with COVID pneumonia with hypoxemic respiratory failure. Patient was treated with REMdesivir from 10/05-10/09. I will restart another day 5 days of remdesivir as patient as is worse now. Patient continues on dexamethasone 6 mg IV q.day. Patient received convalescent plasma on 10/06. -Remdesivir for 10 days - Dexamethasone 6 mg for 10 days - Continuous pulse oximetry - S/P ceftriaxone and azithromycin - Prone positioning as tolerated - Avoid any fluid overload, Check BNP in morning. - Obtain echo with bubble study to assess LV function and for R to L shunt. Goal saturations are 90-94% and will utilize nasal cannula oxygen to achieve this. Patient requires BiPAP, and if fails then mechanical ventilation. I Talked to the patient about mechanical ventilation and at this point he wants to think about that as an option. Will follow with you. (2) Respiratory failure with hypoxia: Code(s): J96.91 - Respiratory failure, unspecified with hypoxia Status: Acute Assessment and Plan: Patient with COVID pneumonia and hypoxemic respiratory failure. 10/09 08:00 High flow NC 50L and 80% with sats 97% 10/10 08:00 High flow NC 50L and 70% with sats 92% 10/11 08:00 High flow NC 50L and 70% with sats 91% 10/12 08:00 High flow NC 50L and 60% with sats 91% 10/13 08:00 High flow NC 50L and 75% with sats 87% 10/13 08:00 High flow NC 50L and 85% with sats 93% 10/14 08:00 High flow NC 50L and 90% with sats 93% 10/14 11:00 Desats on 50L and 90% high flow now on BiPAP 05/17 100% with ABG one hour later 7.42/43/88 and now on FIO2 85% with sats 94%. Current TV is 600-800. On rise time 1.00 sec and I attempted to addjust rise time to 0.75 and 1.20 seconds and he prefers 1.00. On rise of 3 and I attempted to adjust to rize of 1 and 5 and he prefers 3. Would transfer to ICU for closer monitoring given his recent deterioration. Discussed with Dr. Acevedo. History of Present Illness History of Present Illness Consult date: 10/14/20 Requesting physician: Monie Acevedo MD Reason for consult: hypoxemia Chief complaint: Covid pneumonia with hypoxemia Narrative: This is a new pulmonary consult for COVID pneumonia with hypoxemic respiratory failure. This is a 60-year-old man with no past medical history who presented to the emergency room on 10/05 with shortness of breath and tested positive for COVID on 10/01 after being sick for about 10 days. Patient was treated with REMdesivi from 10/05 to 10/09, dexamethasone and convalescent plasma on 10/06. On 10/05 patient had worsening oxygen requirements from 6 L nasal cannula to high-flow nasal cannula at 50 L and 80% FIO2. patient had a CT angiogram the chest that was negative for PE but positive for diffuse bilateral ground-glass infiltrates. Patient was treated with ceftriaxone and azithromycin. On 10/14 I was consulted for continued hypoxemic respiratory failure requiring BiPAP 100% today. Was on high-flow oxygen at 50 L and 90% FIO2 with desats today and placed on BiPAP 12/6 100% with ABG one hour later 7.42/43/88 and now on FIO2 85% with sats 94%. The chest x-ray today demonstrates worsening interstitial infiltrates in the right lung compared to 10/05/20. Currently the patient tells me that he initially improved during this hospitalization but has gotten worse over the last few days. He denies any headaches, fever, rigors, phlegm production. Patient does say that he has chest tightness and it is hard to breathe and is currently on BiPAP. Review of Systems Review of Systems: All systems reviewed & are unremarkable except as noted in HPI and below Eyes: Eyes: Reports no additional eye complaints ENT: Reports system reviewed and no additional complaints, except as documented Cardiovascular:
[2020-10-14 11:02] LABS: Anion Gap 4 mmol/L (8-16); Blood Urea Nitrogen 16 mg/dL (9-20); Calcium 8.3 mg/dL (8.4-10.2); Carbon Dioxide 26 mmol/L (22-30); Chloride 101 mmol/L (98-107); Estimated CRCL calculation 94 ml/min; Estimated Glomerular Filt Rate > 60; Glucose 91 mg/dL (75-110); Potassium 5.2 mmol/L (3.4-5.0); Sodium 131 mmol/L (137-145)
[2020-10-14 11:31] LABS: Alveolar/Arterial O2 Gradient 582.7 mmHg; Base Excess ABG 2.2 mEq/l (+/-2.0); Carboxyhemoglobin 0.3 % THb (0-2.0); Device NON-INVASIVE VENT; Fractional Inspired Oxygen 100 %; Methemoglobin ABG 0.4 %THb (0-1.5); Modified Allen's Test Pass; Non-Invasive Expiratory Pressure 6 CMH2O; Non-Invasive Inspiratory Pressure 12 CMH2O; Non-Invasive Vent Rate 12 /MIN; Oxygen Content ABG 18.3 %vol (16.0-22.0); Oxygen Saturation ABG 96.8 % (95.0-100.0); Oxyhemoglobin 95.3 % THb (90.0-100.0); PCO2 ABG 42.6 mmHg (35.0-45.0); PO2 ABG 87.7 mmHg (80.0-100.0); PO2 FiO2 Ratio Arterial Blood 0.88 %; Site Drawn RIGHT RADIAL; Total Hemoglobin 13.6 g/dL (12.0-18.0)
[2020-10-14] MEDS: REMDESIVIR 200 MG/NS 250 ML 200 MG/250 ML BAG 250 MG IVPB (11:50)
--- NOTE | 2020-10-14 15:48 | PM.IMPN ---
Progress Note: A&P Assessment and Plan (1) Acute respiratory failure with hypoxia: Code(s): J96.01 - Acute respiratory failure with hypoxia Status: Acute Assessment and Plan: Pt is on bipap ABG reviwed Pt seen by Pulmologist recommendations to continue remdesivir and continue steroids ICU MD informed that pt has deteriorated, reception also aware. continue to watch patient (2) Pneumonia due to COVID-19 virus: Code(s): U07.1 - COVID-19; J12.82 - Pneumonia due to coronavirus disease 2018 Status: Acute Assessment and Plan: Pt sp treatments for covid see below Convalescent plasma Remdesivir and Dexamethasone to continue order CXR and ABG cris AM and later tonite (3) Atrial fibrillation with rapid ventricular response: Code(s): I48.91 - Unspecified atrial fibrillation Status: Acute Assessment and Plan: Off of Cardizem drip Cardiology rounding Anticoagulated with Lovenox On metoprolol patient's heart rate seems to be better controlled Echo ordered (4) RONALD (obstructive sleep apnea): Code(s): G47.33 - Obstructive sleep apnea (adult) (pediatric) Status: Acute Assessment and Plan: Patient uses a CPAP at nighttime (5) Essential hypertension: Code(s): I10 - Essential (primary) hypertension Status: Acute Assessment and Plan: Continue to monitor (6) Hyponatremia: Code(s): E87.1 - Hypo-osmolality and hyponatremia Status: Acute Assessment and Plan: Continue to monitor (7) Acute hyperkalemia: Code(s): E87.5 - Hyperkalemia Status: Acute Assessment and Plan: Kayelexate given to patient rpt BMP Subjective Date/time seen: 10/14/20 15:48 Interval history: Pt is being treated for covid pneumonia and AF Pt desaturated this morning changed from Airvo to BIPAP Pt is sating 93% on BIPAP but is still tachypneic Review of Systems Review of Systems: All systems reviewed & are unremarkable except as noted in HPI and below Exam Const: General: other (Unwell patient, tacypneic, with BIPAP MASK on his face ) HENMT: Head: normal to inspection, normocephalic and atraumatic Ears: hearing grossly normal bilaterally Face and sinus: normal facial exam Eyes: General: appearance normal, both eyes and all related structures Resp: Auscultation: diminished lung sounds Cardio: Jugular venous distension: no JVD Rate: regular rate Rhythm: regular rhythm Heart sounds: S1 normal heart sound present and S2 normal heart sound present Neuro: General: patient oriented x3 and CN's II-XI intact bilaterally Speech: normal speech Extrem: General: normal to inspection, full ROM, no joint enlargement and no pedal edema Objective Data Vital Signs Vital Signs: Vital Signs - 24 hr 10/13/20 16:00 10/13/20 18:00 10/13/20 20:00 Temperature 36.3 C L Pulse Rate 64 68 65 Respiratory Rate 24 H 20 Blood Pressure 103/48 L Pulse Oximetry 95 90 10/13/20 20:04 10/13/20 20:40 10/13/20 22:00 Temperature 36.6 C Pulse Rate 69 74 62 Respiratory Rate 20 Blood Pressure 113/60 Pulse Oximetry 90 10/13/20 23:45 10/14/20 00:00 10/14/20 00:57 Temperature 36.4 C Pulse Rate 58 L 57 L 62 Respiratory Rate 18 18 Blood Pressure 128/70 Pulse Oximetry 92 92 95 10/14/20 02:00 10/14/20 03:20 10/14/20 04:00 Temperature 36.5 C Pulse Rate 56 L 60 52 L Respiratory Rate 18 18 Blood Pressure 123/69 Pulse Oximetry 98 98 10/14/20 06:00 10/14/20 08:00 10/14/20 08:27 Temperature 36.1 C L Pulse Rate 57 L 76 Respiratory Rate 22 H Blood Pressure 126/73 Pulse Oximetry 93 93 10/14/20 08:46 10/14/20 09:24 10/14/20 10:00 Temperature Pulse Rate 75 76 79 Respiratory Rate 31 H Blood Pressure Pulse Oximetry 92 10/14/20 11:25 10/14/20 12:00 10/14/20 14:00 Temperature 36.3 C L Pulse Rate 72 76 65 Respiratory Rate 27 H 22 H Blood Pressure 131/75 Pulse Oxime
--- NOTE | 2020-10-14 17:08 | PM.PNCARD ---
Progress Note: A&P Assessment and Plan (1) Atrial fibrillation with rapid ventricular response: Code(s): I48.91 - Unspecified atrial fibrillation Status: Acute Assessment and Plan: New onset this hospitalization very likely secondary to hypoxic respiratory failure in setting of COVID pneumonia. Converted to sinus rhythm and has maintained sinus rhythm on sotalol. Continue systemic anticoagulation with enoxaparin 1 milligram/kilogram subcutaneous q.12 hours. May transition to oral regimen Eliquis 5 mg b.i.d. or, in view of elevated liver enzymes, Xarelto 20 mg daily. (2) Acute respiratory failure with hypoxia: Code(s): J96.01 - Acute respiratory failure with hypoxia Status: Acute Assessment and Plan: Per hospitalist service. Continue supportive care. No question respiratory compromise, COVID infection driving A. Fib development. Because the patient has had a change in clinical status I agree w/ Echo, which we had not done earlier to reduce COVID exposures. However since he is not tachycardic I doubt there is much CHF present. (3) Pneumonia due to COVID-19 virus: Code(s): U07.1 - COVID-19; J12.82 - Pneumonia due to coronavirus disease 2018 Status: Acute Assessment and Plan: Remains on isolation for COVID. BiPAP. Dexamethasone, antibiotics, supplemental oxygen, bronchodilator therapy, Remdesivir. (4) Essential hypertension: Code(s): I10 - Essential (primary) hypertension Status: Acute Assessment and Plan: Controlled. Was on lisinopril 10 mg daily as an outpatient. Subjective Date/time seen: 10/14/20 17:08 Interval history: Follow-up visit in this 60-year-old man with atrial fibrillation in the setting of jacinto virus pneumonia. He was started on sotalol for the weekend and converted medically to sinus rhythm. 10/12/2020 No cardiac complaints today. Patient is hoping to go home as soon as his oxygenation is adequate. Date of service 10/14/2020: Patient's oxygenation status has worsened and he has been on BiPAP most of the time. Sterting another round of remdesivir and continues on dexamethasone. Patient has no complaints of chest pain or palpitations, and has maintained sinus rhythm. Only complaint is being short of breath. Dr. Whitley, pulmonary, has rec an Echo to assess LV fxn and a bubble study to assess for shunt, as well as a BNP. Review of Systems Constitutional: Constitutional: Reports fatigue, Reports lethargy and Reports weakness ENT: Denies nasal discharge Cardiovascular: Cardiovascular: Denies chest pain, Denies pedal edema and Denies palpitations Respiratory: Respiratory: Reports dyspnea and Reports dyspnea on exertion Gastrointestinal: Gastrointestinal: Denies abdominal pain Genitourinary: Genitourinary: Denies dysuria Musculoskeletal: Musculoskeletal: Reports no additional musculoskeletal complaints Integumentary/Breasts: Skin/Breast: Denies rash Neurologic: Denies confusion Psychiatric: Psychiatric: Denies behavioral changes Exam Narrative: Exam Narrative: Apprehensive appearing male who is taking a break off BiPAP on high-flow oxygen, mildly tachypneic. Alert and answers questions. Const: General: in distress and uncomfortable HENMT: General nose exam: no epistaxis Eyes: EOM: EOMs intact bilaterally Neck: Neck: supple Resp: Effort & Inspection: abnormal respiratory effort Auscultation: clear to auscultation bilaterally Cardio: Rate: regular rate Rhythm: regular rhythm Heart sounds: no murmurs GI: Inspection: non-distended GI Palp: Yes Soft to palpation, No Firmness to palpation present (GI) and No Tenderness to palpation present (GI) Skin: General skin exam: no rashes or lesions noted Neuro: Cognition (Neuro): normal cognition Speec
[2020-10-14 18:40] LABS: Anion Gap 0 mmol/L (8-16); Blood Urea Nitrogen 16 mg/dL (9-20); Calcium 8.7 mg/dL (8.4-10.2); Carbon Dioxide 32 mmol/L (22-30); Chloride 99 mmol/L (98-107); Estimated CRCL calculation 83 ml/min; Estimated Glomerular Filt Rate > 60; Glucose 103 mg/dL (75-110); Potassium 4.9 mmol/L (3.4-5.0); Sodium 131 mmol/L (137-145)
[2020-10-14] MEDS: SODIUM POLYSTYRENE SULFONONATE 15 GM/60 ML BTL PO (18:50)
[2020-10-14 20:05] LABS: Alveolar/Arterial O2 Gradient 511.5 mmHg; Base Excess ABG 3.2 mEq/l (+/-2.0); Fractional Inspired Oxygen 85 %; HCO3 ABG 26.4 mEq/l (22.0-26.0); Oxygen Content ABG 18.2 %vol (16.0-22.0); Oxygen Saturation ABG 91.9 % (95.0-100.0); PCO2 ABG 35.9 mmHg (35.0-45.0); PO2 ABG 57.3 mmHg (80.0-100.0); PO2 FiO2 Ratio Arterial Blood 0.67 %; Total Hemoglobin 14.4 g/dL (12.0-18.0); pH ABG 7.485 (7.350-7.450)
[2020-10-14 20:07] LABS: Modified Allen's Test Pass; Site Drawn RIGHT RADIAL
[2020-10-14 20:08] LABS: Device NON-INVASIVE VENT; Non-Invasive Expiratory Pressure 6 CMH2O; Non-Invasive Inspiratory Pressure 12 CMH2O; Non-Invasive Vent Rate 12 /MIN
[2020-10-15] VITALS (22 sets, daily range): BP systolic 100–135; BP diastolic 60–79; PULSE 56–87; RESP 18–34; TEMP 35.3–36.7; O2SAT 92–97
[2020-10-15 05:26] LABS: INR 1.1; Prothrombin Time 14.8 Seconds (11.1-14.7)
[2020-10-15 05:27] LABS: Alanine Aminotransferase 218 U/L (4-50); Estimated CRCL calculation 74 ml/min; Estimated Glomerular Filt Rate > 60
[2020-10-15] MEDS: ENOXAPARIN 100 MG/ML SYRINGE 85 MG SUB-Q ×2 (05:49→18:16)
--- NOTE | 2020-10-15 07:32 | PM.PNPUL ---
Progress Note: A&P Assessment and Plan (1) Pneumonia due to COVID-19 virus: Code(s): U07.1 - COVID-19; J12.82 - Pneumonia due to coronavirus disease 2019 Status: Acute Assessment and Plan: 10/14 Patient with COVID pneumonia with hypoxemic respiratory failure. Patient was treated with REMdesivir from 10/05-10/09. I will restart another day 5 days of remdesivir as patient as is worse now. Patient continues on dexamethasone 6 mg IV q.day. Patient received convalescent plasma on 10/06. -Remdesivir from 10/05 throguh 10/09, restarted 10/14 and to complete another 5 days - Dexamethasone 6 mg for 10 days (last dose scheduled for 10/15) - Continuous pulse oximetry - S/P ceftriaxone and azithromycin - Prone positioning as tolerated - Avoid any fluid overload, Check BNP in morning. - Obtain echo with bubble study to assess LV function and for R to L shunt. Goal saturations are 90-94% and will utilize nasal cannula oxygen to achieve this. Patient requires BiPAP, and if fails then mechanical ventilation. I Talked to the patient about mechanical ventilation and at this point he wants to think about that as an option. 10/15 Worsening CXR in RUL, now requiring BiPAP, he spoke with his and he wishes for full code status at [facility] time. Will follow with you. (2) Respiratory failure with hypoxia: Code(s): J96.91 - Respiratory failure, unspecified with hypoxia Status: Acute Assessment and Plan: Patient with COVID pneumonia and hypoxemic respiratory failure. 10/09 08:00 High flow NC 50L and 80% with sats 97% 10/10 08:00 High flow NC 50L and 70% with sats 92% 10/11 08:00 High flow NC 50L and 70% with sats 91% 10/12 08:00 High flow NC 50L and 60% with sats 91% 10/13 08:00 High flow NC 50L and 75% with sats 87% 10/13 08:00 High flow NC 50L and 85% with sats 93% 10/14 08:00 High flow NC 50L and 90% with sats 93% 10/14 11:00 Desats on 50L and 90% high flow now on BiPAP 05/17 100% with ABG one hour later 7. and now on FIO2 85% with sats 94%. Current TV is 600-800. On rise time 1.00 sec and I attempted to adjust rise time to 0.75 and 1.20 seconds and he prefers 1.00. On rise of 3 and I attempted to adjust to rize of 1 and 5 and he prefers 3. Would transfer to ICU for closer monitoring given his recent deterioration. Off BiPAP for 1 hour later in day 10/15 08:00 remains on BiPAP RR 12, 05/17, FIO2 85%, rise 3 and I time 1.00 sec. Sats 94% now. Try high flow Airvo 60 L and 100% as tolerated. Subjective Date/time seen: 10/15/20 07:32 Interval history: 10/14 This is a 60-year-old man with RONALD on CPAP 9 with full face mask for 10 years who presented to the emergency room on 10/05 with shortness of breath and tested positive for COVID on 10/01 after being sick for about 10 days. Patient was treated with REMdesivi from 10/05 to 10/09, dexamethasone and convalescent plasma on 10/06. On 10/05 patient had worsening oxygen requirements from 6 L nasal cannula to high-flow nasal cannula at 50 L and 80% FIO2. patient had a CT angiogram the chest that was negative for PE but positive for diffuse bilateral ground-glass infiltrates. Patient was treated with ceftriaxone and azithromycin. On 10/14 I was consulted for continued hypoxemic respiratory failure requiring BiPAP 100% today. Was on high-flow oxygen at 50 L and 90% FIO2 with desats today and placed on BiPAP 12/6 100% with ABG one hour later 7.42 and now on FIO2 85% with sats 94%. The chest x-ray today demonstrates worsening interstitial infiltrates in the right lung compared to 10/05/20. Currently the patient tells me that he initially improved during this hospitalization but has gotten worse over the last few days. He denies any headaches, fever, rigors, phlegm production. Patient does say that he has chest tightness and it is hard to breathe and is currently on BiPAP Toelrated off BiPAP to high flow later in day for 1 hour. . 10/15 Patient wore BiPAP 12/6 85% all night with saturations 94-95%.Stat
[2020-10-15 07:54] LABS: NT Pro B Type Natriuretic Pept 299 pg/mL (5-100)
[2020-10-15] MEDS: PANTOPRAZOLE 40 MG TABLET PO (08:33)
[2020-10-15] MEDS: SOTALOL HCL 80 MG TABLET PO ×2 (08:33→21:17)
[2020-10-15] MEDS: DEXAMETHASONE SOD PHOS INJ 4 MG/ML VIAL 6 MG IV PUSH (08:34)
[2020-10-15] MEDS: ALBUTEROL SULFATE (*SP) INHALER 2 PUFF INHALATION ×4 (08:36→21:17)
[2020-10-15 08:48] LABS: Alveolar/Arterial O2 Gradient 512.8 mmHg; Base Excess ABG 4.2 mEq/l (+/-2.0); Device NON-INVASIVE VENT; Fractional Inspired Oxygen 85 %; HCO3 ABG 26.9 mEq/l (22.0-26.0); Modified Allen's Test Pass; Oxygen Content ABG 20.3 %vol (16.0-22.0); Oxygen Saturation ABG 92.5 % (95.0-100.0); Oxyhemoglobin 90.6 % THb (90.0-100.0); PCO2 ABG 34.6 mmHg (35.0-45.0); PO2 ABG 57.4 mmHg (80.0-100.0); PO2 FiO2 Ratio Arterial Blood 0.68 %; Site Drawn RIGHT RADIAL; pH ABG 7.509 (7.350-7.450)
[2020-10-15 08:49] LABS: Non-Invasive Expiratory Pressure 6 CMH2O; Non-Invasive Inspiratory Pressure 12 CMH2O; Non-Invasive Vent Rate 12 /MIN
--- NOTE | 2020-10-15 09:03 | ECHO_ITS ---
Patient Info Name: Davian Shepherd Age: 60 years : 1960 Gender: Male Ht: 65 in Wt: 184 lbs BSA: 1.98 m2 HR: 67 bpm BP: 126 / 73 mmHg Heart Rhythm: Sinus Rhythm Technical Quality: Good Exam Date: 10/15/2020 7:39 AM Exam Location: [facility] Pulmonary Patient Status: Inpatient Admit Date: 10/05/2020 Staff Ordering Physician: Александр Carrion MD Agriculturist: Fab Wade RDCS, RT Attending Provider: Gala Greene MD Exam Type: CA echo doppler w bubble study Study Info Complete two-dimensional, color flow and Doppler transthoracic echocardiogram is performed with agitated saline. Summary 1. Normal left ventricular size with mild concentric hypertrophy. Good systolic function of all segments with no segmental wall motion abnormalities. Ejection fraction is visually estimated to be 60-65%, measured at 58%. Normal diastolic function. 2. No significant valve disease. 3. Bubble study did not show any evidence of PFO or intracardiac shunting. 4. Normal sinus rhythm. Left Ventricle Left ventricular chamber dimension is normal. Left ventricular systolic function is normal, estimated at 60-65%. There is mildly increased left ventricular wall thickness. Left ventricular septal wall motion is normal. The left ventricular diastolic function is normal. Right Ventricle Right ventricular chamber dimension is normal. Right ventricular systolic function is normal. Left Atria Left atrial chamber dimension is normal. Right Atria Right atrial chamber dimension is normal. Aortic Valve The aortic valve is trileaflet. There is mild aortic valve sclerosis. There is no aortic valve stenosis. There is no aortic valve regurgitation. Pulmonic Valve The pulmonic valve is normal. There is no pulmonic valve stenosis. There is no pulmonic regurgitation. Mitral Valve The mitral valve has normal leaflets. There is no mitral valve stenosis. There is no mitral valve regurgitation. Tricuspid Valve The tricuspid valve leaflets are normal. There is no significant tricuspid valve stenosis. There is trace tricuspid valve regurgitation. No pulmonary hypertension, estimated pulmonary arterial systolic pressure is Empty. Pericardium/Pleural The pericardium appears normal. There is no pericardial effusion. Inferior Vena Cava Normal inferior vena cava with >50% collapse upon inspiration consistent with Empty right atrial pressure, Empty. Aorta The aortic root size at the sinus of Valsalva is normal. The prox ascending aorta size is normal. Left Ventricular Outflow Tract Name Value Normal LVOT 2D LVOT Diameter 2.0 cm LVOT Doppler LVOT Peak Gradient 3 mmHg LVOT Mean Gradient 2 mmHg LVOT VTI 21 cm LVOT VTI/AV VTI Ratio 0.9 LVOT Stroke Volume 65 ml LVOT CO 4.4 l/min LVOT CI 2.2 l/min/m2 Mitral Valve Name
[2020-10-15] MEDS: REMDESIVIR 100 MG/NS 250 ML 100 MG/250 ML BAG 250 MG IVPB (09:46)
--- NOTE | 2020-10-15 16:03 | PM.IMPN ---
Progress Note: A&P Assessment and Plan (1) Acute respiratory failure with hypoxia: Code(s): J96.01 - Acute respiratory failure with hypoxia Status: Acute Assessment and Plan: Pt is back on AIRVO high flow oxygen Pt seen by Pulmologist recommendations to continue remdesivir and continue steroids (2) Pneumonia due to COVID-19 virus: Code(s): U07.1 - COVID-19; J12.82 - Pneumonia due to coronavirus disease 2018 Status: Acute Assessment and Plan: Pt sp treatments for covid see below Convalescent plasma Remdesivir and Dexamethasone continue on Remdesivir and Dexamethasone (3) Atrial fibrillation with rapid ventricular response: Code(s): I48.91 - Unspecified atrial fibrillation Status: Acute Assessment and Plan: Off of Cardizem drip Cardiology rounding Anticoagulated with Lovenox On metoprolol patient's heart rate seems to be better controlled Echo ordered (4) RONALD (obstructive sleep apnea): Code(s): G47.33 - Obstructive sleep apnea (adult) (pediatric) Status: Acute Assessment and Plan: Patient uses a CPAP at nighttime (5) Essential hypertension: Code(s): I10 - Essential (primary) hypertension Status: Acute Assessment and Plan: Continue to monitor (6) Hyponatremia: Code(s): E87.1 - Hypo-osmolality and hyponatremia Status: Acute Assessment and Plan: Continue to monitor (7) Acute hyperkalemia: Code(s): E87.5 - Hyperkalemia Status: Resolved Assessment and Plan: resolved Subjective Date/time seen: 10/15/20 16:03 Interval history: Pt is being treated for covid pneumonia and AF Some improvement since yesterday pt is back onto high flow therapy, seen by pulmonology and cardiology doctors see recommendations, pt is improved since yesterday, on airvo continue oxygenation. Review of Systems Review of Systems: All systems reviewed & are unremarkable except as noted in HPI and below Exam Const: General: other (unwell with AIRVO high flow oxyen ) Nutritional Appearance: average body habitus Orientation/consciousness: patient oriented x3 HENMT: Head: normal to inspection, normocephalic and atraumatic Ears: hearing grossly normal bilaterally Face and sinus: normal facial exam Eyes: General: appearance normal, both eyes and all related structures Pupils: Equal, round and reactive pupils present EOM: EOMs intact bilaterally Resp: Effort & Inspection: normal respiratory effort and able to speak in complete sentences Cardio: Jugular venous distension: no JVD Rate: regular rate Rhythm: regular rhythm Heart sounds: S1 normal heart sound present and S2 normal heart sound present Skin: Rashes: no rashes Wounds: no wounds Neuro: General: patient oriented x3 and CN's II-XI intact bilaterally Cranial nerves: Yes CN's II-XII intact bilaterally and Yes Equal, round and reactive pupils present Cognition (Neuro): normal cognition Speech: normal speech Gait exam (Neuro): Normal gait present Motor exam (neuro): 5/5 motor strength present throughout Extrem: General: normal to inspection, full ROM, no joint enlargement and no pedal edema Objective Data Vital Signs Vital Signs: Vital Signs - 24 hr 10/14/20 17:00 10/14/20 17:17 10/14/20 19:34 Temperature 36.4 C Pulse Rate 62 62 Respiratory Rate 21 H Blood Pressure 123/78 Pulse Oximetry 95 92 10/14/20 19:58 10/14/20 20:00 10/14/20 21:10 Temperature Pulse Rate 77 63 83 Respiratory Rate 26 H 26 H Blood Pressure Pulse Oximetry 95 95 10/14/20 22:00 10/14/20 23:20 10/14/20 23:31 Temperature 36.4 C L Pulse Rate 59 L 81 56 L Respiratory Rate 28 H 34 H Blood Pressure 137/71 Pulse Oximetry 94 95 10/15/20 00:00 10/15/20 01:53 10/15/20 02:00 Temperature Pulse Rate 60 87 61 Respiratory Rate 34 H 28 H Blood Pressure Pulse Oximetry 95 95 10/15/20 04:00 10/15/20 06:00 10/15/20
[2020-10-16] VITALS (16 sets, daily range): BP systolic 97–123; BP diastolic 53–77; PULSE 51–67; RESP 17–26; TEMP 36.6–36.9; O2SAT 91–96
[2020-10-16] MEDS: ALBUTEROL SULFATE (*SP) INHALER 2 PUFF INHALATION ×6 (05:32→23:58)
[2020-10-16] MEDS: ENOXAPARIN 100 MG/ML SYRINGE 85 MG SUB-Q ×2 (05:33→18:26)
[2020-10-16 05:58] LABS: Alanine Aminotransferase 161 U/L (4-50); Albumin Level 2.8 g/dL (3.5-5.1); Alkaline Phosphatase 89 U/L (38-126); Anion Gap 1 mmol/L (8-16); Aspartate Amino Transferase 76 U/L (17-59); Bilirubin,Total 0.5 mg/dL (0.2-1.3); Blood Urea Nitrogen 26 mg/dL (9-20); Calcium 8.6 mg/dL (8.4-10.2); Carbon Dioxide 30 mmol/L (22-30); Chloride 99 mmol/L (98-107); Estimated CRCL calculation 83 ml/min; Estimated Glomerular Filt Rate > 60; Glucose 88 mg/dL (75-110); Potassium 4.7 mmol/L (3.4-5.0); Sodium 130 mmol/L (137-145)
[2020-10-16 06:02] LABS: INR 1.2; Prothrombin Time 15.4 Seconds (11.1-14.7)
--- NOTE | 2020-10-16 06:55 | PC.NURSE ---
patients o2 level decreased to 72 on airvo. placed patient back on bipap. patient was slow to recover. patient at 72 was cyanotic, diaphoretic, slightly confused. patient is improving on bipap and is aware that he has to keep it on for now., o2 sat;s in 89 to91
[2020-10-16] MEDS: PANTOPRAZOLE 40 MG TABLET PO (08:13)
[2020-10-16] MEDS: SOTALOL HCL 80 MG TABLET PO ×2 (08:13→20:16)
--- NOTE | 2020-10-16 09:03 | PM.PNPUL ---
Progress Note: A&P Assessment and Plan (1) Pneumonia due to COVID-19 virus: Code(s): U07.1 - COVID-19; J12.82 - Pneumonia due to coronavirus disease 2019 Status: Acute Assessment and Plan: 10/14 Patient with COVID pneumonia with hypoxemic respiratory failure. Patient was treated with REMdesivir from 10/05-10/09. I will restart another day 5 days of remdesivir as patient as is worse now. Patient continues on dexamethasone 6 mg IV q.day. Patient received convalescent plasma on 10/06. -Remdesivir from 10/05 throguh 10/09, restarted 10/14 and to complete another 5 days - Dexamethasone 6 mg for 10 days (s/p last dose 10/15) - Continuous pulse oximetry - S/P ceftriaxone and azithromycin - Prone positioning as tolerated - Avoid any fluid overload, BNP 299 on 10/15. - Echo 10/15 normal LV EF 58%, no right to left shunt, RA and RV normal. Goal saturations are 90-94% and will utilize nasal cannula oxygen to achieve this. Patient now requires BiPAP, and if fails then mechanical ventilation. 10/15 I Talked to the patient about mechanical ventilation and at this point he wants to think about that as an option. 10/15 Worsening CXR in RUL, now requiring BiPAP, he spoke with his and he wishes for full code status at this time. 10/16 Requiring high flow NC and BiPAP, spoke with who is surgical nurse and explained that he has had minimal improvement the last few days and she understands, she confirmed his wishes for full code. Will follow with you. (2) Respiratory failure with hypoxia: Code(s): J96.91 - Respiratory failure, unspecified with hypoxia Status: Acute Assessment and Plan: Patient with COVID pneumonia and hypoxemic respiratory failure. 10/09 08:00 High flow NC 50L and 80% with sats 97% 10/10 08:00 High flow NC 50L and 70% with sats 92% 10/11 08:00 High flow NC 50L and 70% with sats 91% 10/12 08:00 High flow NC 50L and 60% with sats 91% 10/13 08:00 High flow NC 50L and 75% with sats 87% 10/13 08:00 High flow NC 50L and 85% with sats 93% 10/14 08:00 High flow NC 50L and 90% with sats 93% 10/14 11:00 Desats on 50L and 90% high flow now on BiPAP 05/17 100% with ABG one hour later 7.42/43/88 and now on FIO2 85% with sats 94%. Current TV is 600-800. On rise time 1.00 sec and I attempted to adjust rise time to 0.75 and 1.20 seconds and he prefers 1.00. On rise of 3 and I attempted to adjust to rize of 1 and 5 and he prefers 3. Would transfer to ICU for closer monitoring given his recent deterioration. Off BiPAP for 1 hour later in day 10/15 08:00 remains on BiPAP RR 12, 05/17, FIO2 85%, rise 3 and I time 1.00 sec. Sats 94% now. Try high flow Airvo 60 L and 100% as tolerated. On High flow 60L and 100% for 23 hours. 10/16 08:00 desats this morning at 07:00 on high flow all night 60L and 100%, placed back on BiPAP and more comfortable now with sats 96% on 100% BiPAP. BiPAP PRN alternating with high flow as tolerated today. (3) RONALD (obstructive sleep apnea): Code(s): G47.33 - Obstructive sleep apnea (adult) (pediatric) Status: Acute Assessment and Plan: Patient has obstructive sleep apnea and has been on his current home CPAP for the last 10 years at a setting of 9. Patient has no DME company and has now had no follow-up. Patient gets his supplies privately by shopping on the Internet. patient states that the current BiPAP settings feel identical to his home CPAP. 10/16 Patient was on high-flow 60 L 100% all night and decompensated at 07:00 this morning. He should wear BiPAp 05/17 when sleeps at night every night. Subjective Date/time seen: 10/16/20 09:03 Interval history: 10/14/20 New consult. This is a 60-year-old man with RONALD on CPAP 9 with full face mask for 10 years who presented to the emergency room on 10/05 with shortness of breath and tested positive for COVID on 10/01 after being sick for about 10 days. Patient was treated with Remdesivir from 10/05 to 10/09, dexamethasone and convalescent plasma on 10/06. On
[2020-10-16] MEDS: REMDESIVIR 100 MG/NS 250 ML 100 MG/250 ML BAG 250 MG IVPB (09:51)
[2020-10-16] MEDS: DEXAMETHASONE SOD PHOS INJ 4 MG/ML VIAL 6 MG IV PUSH (20:15)
[2020-10-17] VITALS (22 sets, daily range): BP systolic 98–122; BP diastolic 62–76; PULSE 53–83; RESP 18–32; TEMP 35.9–36.8; O2SAT 90–97
[2020-10-17] MEDS: ALBUTEROL SULFATE (*SP) INHALER 2 PUFF INHALATION ×6 (04:06→23:56)
[2020-10-17] MEDS: ENOXAPARIN 100 MG/ML SYRINGE 85 MG SUB-Q ×2 (06:33→17:49)
[2020-10-17 06:58] LABS: Alanine Aminotransferase 145 U/L (4-50); Estimated CRCL calculation 65 ml/min; Estimated Glomerular Filt Rate > 60
[2020-10-17 07:00] LABS: INR 1.9; Prothrombin Time 22.3 Seconds (11.1-14.7)
--- NOTE | 2020-10-17 07:54 | PM.PNPUL ---
Progress Note: A&P Assessment and Plan (1) Pneumonia due to COVID-19 virus: Code(s): U07.1 - COVID-19; J12.82 - Pneumonia due to coronavirus disease 2019 Status: Acute Assessment and Plan: 10/14 Patient with COVID pneumonia with hypoxemic respiratory failure. Patient was treated with REMdesivir from 10/05-10/09. I will restart another day 5 days of remdesivir as patient as is worse now. Patient continues on dexamethasone 6 mg IV q.day. Patient received convalescent plasma on 10/06. -Remdesivir from 10/05 throguh 10/09, restarted 10/14 and to complete another 5 days - Dexamethasone 6 mg for 10 days (s/p last dose 10/15) - Continuous pulse oximetry - S/P ceftriaxone and azithromycin - Prone positioning as tolerated - Avoid any fluid overload, BNP 299 on 10/15. - Echo 10/15 normal LV EF 58%, no right to left shunt, RA and RV normal. Goal saturations are 90-94% and will utilize Airvo and BiPAP PRN and BiPAP at night. If fails BiPAP then mechanical ventilation. 10/15 I Talked to the patient about mechanical ventilation and at this point he wants to think about that as an option. 10/15 Worsening CXR in RUL, now requiring BiPAP, he spoke with his and he wishes for full code status at this time. Last dose steroids given. 10/16 Requiring high flow NC and BiPAP, spoke with who is surgical nurse and explained that he has had minimal improvement the last few days and she understands, she confirmed his wishes for full code. 10/17 Wore BiPAP 05/17 100% overnight and now states he slept well, currently he is OK with sats 96%. Still with SOB at rest. Minimal improvement last 48 hours. Remdesivir day 9 total. Off steroids 48 hours and minimal improvement and no deterioration. Will follow with you. (2) Respiratory failure with hypoxia: Code(s): J96.91 - Respiratory failure, unspecified with hypoxia Status: Acute Assessment and Plan: Patient with COVID pneumonia and hypoxemic respiratory failure. 10/09 08:00 High flow NC 50L and 80% with sats 97% 10/10 08:00 High flow NC 50L and 70% with sats 92% 10/11 08:00 High flow NC 50L and 70% with sats 91% 10/12 08:00 High flow NC 50L and 60% with sats 91% 10/13 08:00 High flow NC 50L and 75% with sats 87% 10/13 08:00 High flow NC 50L and 85% with sats 93% 10/14 08:00 High flow NC 50L and 90% with sats 93% 10/14 11:00 Desats on 50L and 90% high flow now on BiPAP 6 100% with ABG one hour later 7.42/43/88 and now on FIO2 85% with sats 94%. Current TV is 600-800. On rise time 1.00 sec and I attempted to adjust rise time to 0.75 and 1.20 seconds and he prefers 1.00. On rise of 3 and I attempted to adjust to rize of 1 and 5 and he prefers 3. Would transfer to ICU for closer monitoring given his recent deterioration. Off BiPAP for 1 hour later in day 10/15 08:00 remains on BiPAP RR 12, 05/17, FIO2 85%, rise 3 and I time 1.00 sec. Sats 94% now. Try high flow Airvo 60 L and 100% as tolerated. On High flow 60L and 100% for 23 hours. 10/16 08:00 desats this morning at 07:00 on high flow all night 60L and 100%, placed back on BiPAP and more comfortable now with sats 96% on 100% BiPAP. BiPAP PRN alternating with high flow as tolerated today. On AIRVO 60L 100% then 90% for 13 hours during day. Minus 25 ml. 10/17 Wore BiPAP 05/17 100% overnight and now states he slept well, currently he is OK with sats 96%. Wishing to use Airvo now and wants to eat breakfast. (3) RONALD (obstructive sleep apnea): Code(s): G47.33 - Obstructive sleep apnea (adult) (pediatric) Status: Acute Assessment and Plan: Patient has obstructive sleep apnea and has been on his current home CPAP for the last 10 years at a setting of 9. Patient has no DME company and has now had no follow-up. Patient gets his supplies privately by shopping on the Internet. patient states that the current BiPAP settings feel identical to his home CPAP. 10/16 Patient was on high-flow 60 L 100% all night and decompensated at 07:00 this morning. He should w
--- NOTE | 2020-10-17 08:47 | PM.IMPN ---
Progress Note: A&P Assessment and Plan (1) Acute respiratory failure with hypoxia: Code(s): J96.01 - Acute respiratory failure with hypoxia Status: Acute Assessment and Plan: Pt is back on AIRVO high flow oxygen Pt seen by Pulmologist recommendations to continue remdesivir and continue steroids (2) Pneumonia due to COVID-19 virus: Code(s): U07.1 - COVID-19; J12.82 - Pneumonia due to coronavirus disease 2018 Status: Acute Assessment and Plan: Pt sp treatments for covid see below Convalescent plasma Remdesivir and Dexamethasone continue on Remdesivir and Dexamethasone (3) Atrial fibrillation with rapid ventricular response: Code(s): I48.91 - Unspecified atrial fibrillation Status: Acute Assessment and Plan: Off of Cardizem drip Cardiology rounding Anticoagulated with Lovenox On metoprolol patient's heart rate seems to be better controlled Echo ordered (4) RONALD (obstructive sleep apnea): Code(s): G47.33 - Obstructive sleep apnea (adult) (pediatric) Status: Acute Assessment and Plan: Patient uses a CPAP at nighttime (5) Essential hypertension: Code(s): I10 - Essential (primary) hypertension Status: Acute Assessment and Plan: Continue to monitor (6) Hyponatremia: Code(s): E87.1 - Hypo-osmolality and hyponatremia Status: Acute Assessment and Plan: Continue to monitor (7) Acute hyperkalemia: Code(s): E87.5 - Hyperkalemia Status: Resolved Assessment and Plan: Resolved (8) Leucocytosis: Code(s): D72.829 - Elevated white blood cell count, unspecified Status: Acute Assessment and Plan: Likely secondary to steroids continue to watch Subjective Date/time seen: 10/16/20 08:47 Interval history: Pt is being treated for covid pneumonia and AF Some improvement since yesterday pt is back onto high flow therapy, seen by pulmonology and cardiology doctors see recommendations. Pt is still unwell needing high flow oxygenation. Await improvement in respiratory status. Review of Systems Review of Systems: All systems reviewed & are unremarkable except as noted in HPI and below Exam Const: General: other (unwell with AIRVO high flow oxyen ) Nutritional Appearance: average body habitus Orientation/consciousness: patient oriented x3 HENMT: Head: normal to inspection, normocephalic and atraumatic Ears: hearing grossly normal bilaterally Face and sinus: normal facial exam Eyes: General: appearance normal, both eyes and all related structures Pupils: Equal, round and reactive pupils present EOM: EOMs intact bilaterally Neck: Neck: full ROM, no lymphadenopathy and no JVD Thyroid: thyroid normal Lymphatic: no lymphadenopathy noted Resp: Effort & Inspection: normal respiratory effort and able to speak in complete sentences Auscultation: diminished lung sounds Cardio: Jugular venous distension: no JVD Rate: regular rate Rhythm: regular rhythm Heart sounds: S1 normal heart sound present and S2 normal heart sound present Skin: Rashes: no rashes Wounds: no wounds Neuro: General: patient oriented x3 and CN's II-XI intact bilaterally Cranial nerves: Yes CN's II-XII intact bilaterally and Yes Equal, round and reactive pupils present Cognition (Neuro): normal cognition Speech: normal speech Gait exam (Neuro): Normal gait present Motor exam (neuro): 5/5 motor strength present throughout Extrem: General: normal to inspection, full ROM, no joint enlargement and no pedal edema Objective Data Vital Signs Vital Signs: Vital Signs - 24 hr 10/16/20 10:00 10/16/20 12:00 10/16/20 14:00 Temperature 36.6 C Pulse Rate 57 L 51 L 59 L Respiratory Rate 26 H Blood Pressure 98/77 L Pulse Oximetry 92 10/16/20 16:00 10/16/20 18:00 10/16/20 20:00 Temperature 36.8 C 36.9 C Pulse Rate 58 L 66 66 Respiratory Rate 24 H 24 H Blood Pressure 97/53 L 104/64
[2020-10-17] MEDS: REMDESIVIR 100 MG/NS 250 ML 100 MG/250 ML BAG 250 MG IVPB (10:52)
[2020-10-17] MEDS: PANTOPRAZOLE 40 MG TABLET PO (10:53)
[2020-10-17] MEDS: SOTALOL HCL 80 MG TABLET PO ×2 (10:53→20:37)
[2020-10-17] MEDS: DEXAMETHASONE SOD PHOS INJ 4 MG/ML VIAL 6 MG IV PUSH (10:54)
--- NOTE | 2020-10-17 15:23 | PM.IMPN ---
Progress Note: A&P Assessment and Plan (1) Acute respiratory failure with hypoxia: Code(s): J96.01 - Acute respiratory failure with hypoxia Status: Acute Assessment and Plan: Pt is back on AIRVO high flow oxygen Pt seen by Pulmologist recommendations to continue remdesivir for 10 days and continue steroids (2) Pneumonia due to COVID-19 virus: Code(s): U07.1 - COVID-19; J12.82 - Pneumonia due to coronavirus disease 2018 Status: Acute Assessment and Plan: Pt sp treatments for covid see below Convalescent plasma Remdesivir for 10 days and Dexamethasone continue on Remdesivir for 10 days and Dexamethasone (3) Atrial fibrillation with rapid ventricular response: Code(s): I48.91 - Unspecified atrial fibrillation Status: Acute Assessment and Plan: Off of Cardizem drip Cardiology rounding Anticoagulated with Lovenox On metoprolol patient's heart rate seems to be better controlled Echo ordered (4) RONALD (obstructive sleep apnea): Code(s): G47.33 - Obstructive sleep apnea (adult) (pediatric) Status: Acute Assessment and Plan: Patient uses a CPAP at nighttime (5) Essential hypertension: Code(s): I10 - Essential (primary) hypertension Status: Acute Assessment and Plan: Continue to monitor (6) Hyponatremia: Code(s): E87.1 - Hypo-osmolality and hyponatremia Status: Acute Assessment and Plan: Continue to monitor (7) Acute hyperkalemia: Code(s): E87.5 - Hyperkalemia Status: Resolved Assessment and Plan: Resolved (8) Leucocytosis: Code(s): D72.829 - Elevated white blood cell count, unspecified Status: Acute Assessment and Plan: Likely secondary to steroids continue to watch Subjective Date/time seen: 10/17/20 15:23 Interval history: Pt is being treated for covid pneumonia and AF Pt is still unwell needing high flow oxygenation. Await improvement in respiratory status. Rpt Cxr and ABG monday morning, continue spirometry and breathing exercises, prone exercises to continue Review of Systems Review of Systems: All systems reviewed & are unremarkable except as noted in HPI and below Exam Const: General: other (unwell with AIRVO high flow oxyen ) Nutritional Appearance: average body habitus Orientation/consciousness: patient oriented x3 Resp: Effort & Inspection: normal respiratory effort and able to speak in complete sentences Auscultation: diminished lung sounds Cardio: Jugular venous distension: no JVD Rate: regular rate Rhythm: regular rhythm Heart sounds: S1 normal heart sound present and S2 normal heart sound present Neuro: General: patient oriented x3 and CN's II-XI intact bilaterally Cranial nerves: Yes CN's II-XII intact bilaterally and Yes Equal, round and reactive pupils present Cognition (Neuro): normal cognition Speech: normal speech Gait exam (Neuro): Normal gait present Motor exam (neuro): 5/5 motor strength present throughout Extrem: General: normal to inspection, full ROM, no joint enlargement and no pedal edema Objective Data Vital Signs Vital Signs: Vital Signs - 24 hr 10/16/20 16:00 10/16/20 18:00 10/16/20 20:00 Temperature 36.8 C 36.9 C Pulse Rate 58 L 66 66 Respiratory Rate 24 H 24 H Blood Pressure 97/53 L 104/64 Pulse Oximetry 92 95 10/16/20 20:16 10/16/20 22:00 10/17/20 00:00 Temperature 36.8 C Pulse Rate 65 60 62 Respiratory Rate 20 Blood Pressure 98/65 L Pulse Oximetry 91 10/17/20 00:25 10/17/20 02:00 10/17/20 04:00 Temperature 36.5 C Pulse Rate 58 L 54 L 55 L Respiratory Rate 24 H 32 H Blood Pressure 122/72 Pulse Oximetry 91 90 10/17/20 06:00 10/17/20 08:00 10/17/20 08:17 Temperature 36.2 C L Pulse Rate 55 L 63 59 L Respiratory Rate 18 Blood Pressure 115/76 Pulse Oximetry 94 92 10/17/20 08:47 10/17/20 10:00 10/17/20 10:53 Temperature Pulse Rate 60 68 67 Res
[2020-10-18] VITALS (24 sets, daily range): BP systolic 101–146; BP diastolic 55–70; PULSE 52–96; RESP 20–32; TEMP 36.2–36.4; O2SAT 89–98
[2020-10-18] MEDS: ALBUTEROL SULFATE (*SP) INHALER 2 PUFF INHALATION ×6 (05:01→23:51)
[2020-10-18] MEDS: ENOXAPARIN 100 MG/ML SYRINGE 85 MG SUB-Q ×2 (05:02→17:16)
[2020-10-18 06:13] LABS: INR 1.2; Prothrombin Time 16.2 Seconds (11.1-14.7)
[2020-10-18 06:16] LABS: Alanine Aminotransferase 152 U/L (4-50); Estimated CRCL calculation 65 ml/min; Estimated Glomerular Filt Rate > 60
[2020-10-18 08:16] LABS: Alveolar/Arterial O2 Gradient 400.1 mmHg; Base Excess ABG 2.2 mEq/l (+/-2.0); Device HIGH FLOW THERAPY; Fractional Inspired Oxygen 70 %; HCO3 ABG 24.7 mEq/l (22.0-26.0); Modified Allen's Test Pass; Oxygen Saturation ABG 94.4 % (95.0-100.0); Oxyhemoglobin 92.4 % THb (90.0-100.0); PCO2 ABG 32.2 mmHg (35.0-45.0); PO2 ABG 64.4 mmHg (80.0-100.0); PO2 FiO2 Ratio Arterial Blood 0.92 %; Site Drawn LEFT RADIAL; Total Hemoglobin 14.6 g/dL (12.0-18.0); pH ABG 7.502 (7.350-7.450)
--- NOTE | 2020-10-18 09:04 | PM.PNPUL ---
Progress Note: A&P Assessment and Plan (1) Pneumonia due to COVID-19 virus: Code(s): U07.1 - COVID-19; J12.82 - Pneumonia due to coronavirus disease 2019 Status: Acute Assessment and Plan: 10/14 Patient with COVID pneumonia with hypoxemic respiratory failure. Patient was treated with REMdesivir from 10/05-10/09. I will restart another day 5 days of remdesivir as patient as is worse now. Patient continues on dexamethasone 6 mg IV q.day. Patient received convalescent plasma on 10/06. -Remdesivir from 10/05 throguh 10/09, restarted 10/14 and to complete another 5 days - Dexamethasone 6 mg for 10 days (finished 10/15), restarted per hospitalist - Continuous pulse oximetry - S/P ceftriaxone and azithromycin - Prone positioning as tolerated - Avoid any fluid overload, BNP 299 on 10/15. - Echo 10/15 normal LV EF 58%, no right to left shunt, RA and RV normal. Goal saturations are 90-94% and will utilize Airvo and BiPAP PRN and BiPAP at night. If fails BiPAP then mechanical ventilation. 10/15 I Talked to the patient about mechanical ventilation and at this point he wants to think about that as an option. 10/15 Worsening CXR in RUL, now requiring BiPAP, he spoke with his and he wishes for full code status at this time. Last dose steroids given. 10/16 Requiring high flow NC and BiPAP, spoke with who is surgical nurse and explained that he has had minimal improvement the last few days and she understands, she confirmed his wishes for full code. 10/17 Wore BiPAP / 100% overnight and now states he slept well, currently he is OK with sats 96%. Still with SOB at rest. Minimal improvement last 48 hours. Remdesivir day 9 total. Later in day toelrated Airvo 60L and 80% / Oxygen requirements slowly improving. Remdesivir day 10 total, last dose today. ABG on 50 L high flow, 70% FiO2 pH of 7.50/32/64. Chest x-ray this morning demonstrates bilateral pulmonary infiltrates right greater than left which have improved since 10/15/2020. Currently on day 13 of dexamethasone per hospitalist team, to my knowledge longer than 10 days has not been studied. Consider DC for now. Home O2 assessment CXR prior to discharge to serve as discharge baseline for patient in future. Overnight oximetry on CPAP 9 with FIO2 to keep sats > 90% at night prior to discharge. Will sign off, discussed with Dr. Acevedo, please call for questions. (2) Respiratory failure with hypoxia: Code(s): J96.91 - Respiratory failure, unspecified with hypoxia Status: Acute Assessment and Plan: Patient with COVID pneumonia and hypoxemic respiratory failure. 10/09 08:00 High flow NC 50L and 80% with sats 97% 10/10 08:00 High flow NC 50L and 70% with sats 92% 10/11 08:00 High flow NC 50L and 70% with sats 91% 10/12 08:00 High flow NC 50L and 60% with sats 91% 10/13 08:00 High flow NC 50L and 75% with sats 87% 10/13 08:00 High flow NC 50L and 85% with sats 93% 10/14 08:00 High flow NC 50L and 90% with sats 93% 10/14 11:00 Desats on 50L and 90% high flow now on BiPAP 05/17 100% with ABG one hour later 7.42/43/88 and now on FIO2 85% with sats 94%. Current TV is 600-800. On rise time 1.00 sec and I attempted to adjust rise time to 0.75 and 1.20 seconds and he prefers 1.00. On rise of 3 and I attempted to adjust to rize of 1 and 5 and he prefers 3. Would transfer to ICU for closer monitoring given his recent deterioration. Off BiPAP for 1 hour later in day. 10/15 08:00 remains on BiPAP RR 12, 05/17, FIO2 85%, rise 3 and I time 1.00 sec. Sats 94% now. Try high flow Airvo 60 L and 100% as tolerated. On High flow 60L and 100% for 23 hours. 10/16 08:00 desats this morning at 07:00 on high flow all night 60L and 100%, placed back on BiPAP and more comfortable now with sats 96% on 100% BiPAP. BiPAP PRN alternating with high flow as tolerated today. On AIRVO 60L 100% then 90% for 13 hours during day. Minus 25 ml. 10/17 Wore BiPAP 05/17 100% overnight and now states he slept well, currently he is OK with
[2020-10-18] MEDS: REMDESIVIR 100 MG/NS 250 ML 100 MG/250 ML BAG 250 MG IVPB (09:56)
[2020-10-18] MEDS: DEXAMETHASONE SOD PHOS INJ 4 MG/ML VIAL 6 MG IV PUSH (09:57)
[2020-10-18] MEDS: PANTOPRAZOLE 40 MG TABLET PO (09:57)
[2020-10-18] MEDS: SOTALOL HCL 80 MG TABLET PO ×2 (09:57→20:50)
--- NOTE | 2020-10-18 15:18 | PM.IMPN ---
Progress Note: A&P Assessment and Plan (1) Acute respiratory failure with hypoxia: Code(s): J96.01 - Acute respiratory failure with hypoxia Status: Acute Assessment and Plan: Pt seen by Pulmologist recommendations pt has completed 10 days of remdesivir and steroids (2) Pneumonia due to COVID-19 virus: Code(s): U07.1 - COVID-19; J12.82 - Pneumonia due to coronavirus disease 2019 Status: Acute Assessment and Plan: Pt sp treatments for covid see below Convalescent plasma Remdesivir for 10 days and Dexamethasone completed Remdesivir for 10 days and Dexamethasone for 10 days (3) Atrial fibrillation with rapid ventricular response: Code(s): I48.91 - Unspecified atrial fibrillation Status: Acute Assessment and Plan: Off of Cardizem drip Cardiology rounding Anticoagulated with Lovenox On metoprolol patient's heart rate seems to be better controlled Echo ordered (4) RONALD (obstructive sleep apnea): Code(s): G47.33 - Obstructive sleep apnea (adult) (pediatric) Status: Acute Assessment and Plan: Patient uses a CPAP at nighttime (5) Essential hypertension: Code(s): I10 - Essential (primary) hypertension Status: Acute Assessment and Plan: Continue to monitor (6) Hyponatremia: Code(s): E87.1 - Hypo-osmolality and hyponatremia Status: Acute Assessment and Plan: Continue to monitor (7) Acute hyperkalemia: Code(s): E87.5 - Hyperkalemia Status: Resolved Assessment and Plan: Resolved (8) Leucocytosis: Code(s): D72.829 - Elevated white blood cell count, unspecified Status: Acute Assessment and Plan: Likely secondary to steroids continue to watch Subjective Date/time seen: 10/18/20 15:18 Interval history: Pt is being treated for covid pneumonia and AF. CXR and ABG from this morning was reviewed, I discussed case with pulmonology, Pt is slightly improving. Continue highflow oxygen, steroids, spirometry, breathing exercises and prone exercises. Pt has completed 10 days of remdesivir today. Review of Systems Review of Systems: All systems reviewed & are unremarkable except as noted in HPI and below Exam Const: Nutritional Appearance: average body habitus Orientation/consciousness: patient oriented x3 Neck: Neck: full ROM, no lymphadenopathy and no JVD Thyroid: thyroid normal Lymphatic: no lymphadenopathy noted Resp: Effort & Inspection: normal respiratory effort and able to speak in complete sentences Auscultation: diminished lung sounds Cardio: Jugular venous distension: no JVD Rate: regular rate Rhythm: regular rhythm Heart sounds: S1 normal heart sound present and S2 normal heart sound present Skin: Rashes: no rashes Wounds: no wounds Neuro: General: patient oriented x3 and CN's II-XI intact bilaterally Cranial nerves: Yes CN's II-XII intact bilaterally and Yes Equal, round and reactive pupils present Cognition (Neuro): normal cognition Speech: normal speech Gait exam (Neuro): Normal gait present Motor exam (neuro): 5/5 motor strength present throughout Extrem: General: normal to inspection, full ROM, no joint enlargement and no pedal edema Objective Data Vital Signs Vital Signs: Vital Signs - 24 hr 10/17/20 15:51 10/17/20 16:00 10/17/20 16:27 Temperature 35.9 C L Pulse Rate 65 67 Respiratory Rate 18 Blood Pressure 109/62 Pulse Oximetry 91 94 94 10/17/20 18:00 10/17/20 20:00 10/17/20 20:37 Temperature 36.4 C Pulse Rate 67 69 62 Respiratory Rate 18 Blood Pressure 114/67 Pulse Oximetry 95 10/17/20 20:46 10/17/20 22:00 10/17/20 23:56 Temperature 36.4 C Pulse Rate 62 67 83 Respiratory Rate 20 Blood Pressure 117/72 Pulse Oximetry 95 95 10/18/20 00:00 10/18/20 00:06 10/18/20 00:07 Temperature Pulse Rate 58 L 56 L 56 L Respiratory Rate 25 H 25 H Blood Pressure Pulse Oximetry 93 98 0
[2020-10-19] VITALS (24 sets, daily range): BP systolic 103–128; BP diastolic 56–81; PULSE 54–66; RESP 20–32; TEMP 36.3–37.1; O2SAT 90–99
[2020-10-19] MEDS: ALBUTEROL SULFATE (*SP) INHALER 2 PUFF INHALATION ×6 (03:33→23:55)
[2020-10-19] MEDS: ENOXAPARIN 100 MG/ML SYRINGE 85 MG SUB-Q ×2 (06:00→17:35)
[2020-10-19] MEDS: PANTOPRAZOLE 40 MG TABLET PO (08:13)
[2020-10-19] MEDS: SOTALOL HCL 80 MG TABLET PO ×2 (08:13→20:02)
[2020-10-19] MEDS: DEXAMETHASONE SOD PHOS INJ 4 MG/ML VIAL 6 MG IV PUSH (08:13)
--- NOTE | 2020-10-19 14:41 | PCDIET ---
Weekly nutritional screen. Patient is tolerating current diet with average intake of 75% since admission. Patient denies need for oral supplements, as feels he is eating well. Weight loss noted, though suspect fluid related, given fluid restriction. No nutritional needs at this time.
--- NOTE | 2020-10-19 16:44 | PM.IMPN ---
Progress Note: A&P Assessment and Plan (1) Acute respiratory failure with hypoxia: Code(s): J96.01 - Acute respiratory failure with hypoxia Status: Acute Assessment and Plan: Pt seen by Pulmologist recommendations pt has completed 10 days of remdesivir and steroids Continue respiratory support, pt may need to discharge on oxygen Pt can come of isolation today, wants to visit him (2) Pneumonia due to COVID-19 virus: Code(s): U07.1 - COVID-19; J12.82 - Pneumonia due to coronavirus disease 2018 Status: Acute Assessment and Plan: Pt sp treatments for covid see below Convalescent plasma Remdesivir for 10 days and Dexamethasone completed Remdesivir for 10 days and Dexamethasone for 10 days (3) Atrial fibrillation with rapid ventricular response: Code(s): I48.91 - Unspecified atrial fibrillation Status: Acute Assessment and Plan: Off of Cardizem drip Cardiology rounding Anticoagulated with Lovenox On metoprolol patient's heart rate seems to be better controlled Echo ordered (4) RONALD (obstructive sleep apnea): Code(s): G47.33 - Obstructive sleep apnea (adult) (pediatric) Status: Acute Assessment and Plan: Patient uses a CPAP at nighttime (5) Essential hypertension: Code(s): I10 - Essential (primary) hypertension Status: Acute Assessment and Plan: Continue to monitor (6) Hyponatremia: Code(s): E87.1 - Hypo-osmolality and hyponatremia Status: Acute Assessment and Plan: Continue to monitor (7) Acute hyperkalemia: Code(s): E87.5 - Hyperkalemia Status: Resolved Assessment and Plan: Resolved (8) Leucocytosis: Code(s): D72.829 - Elevated white blood cell count, unspecified Status: Acute Assessment and Plan: Likely secondary to steroids continue to watch Subjective Date/time seen: 10/19/20 16:44 Interval history: Pt is being treated for covid pneumonia and AF. CXR and ABG from this morning was reviewed, I discussed case with pulmonology, Pt is slightly improving. Continue highflow oxygen, steroids, spirometry, breathing exercises and prone exercises. Pt has completed 10 days of remdesivir today. Pt remains of high flow oxygen , cxr reviwed which is better, pt will need to continue on oxygen and may need to discharge on oxygen. Review of Systems Review of Systems: All systems reviewed & are unremarkable except as noted in HPI and below Exam Const: General: other (stable on high flow oxygen, pt in the room lying on his side ) Nutritional Appearance: average body habitus Orientation/consciousness: patient oriented x3 Neck: Neck: full ROM, no lymphadenopathy and no JVD Thyroid: thyroid normal Lymphatic: no lymphadenopathy noted Resp: Effort & Inspection: normal respiratory effort and able to speak in complete sentences Auscultation: diminished lung sounds Cardio: Rate: regular rate Rhythm: regular rhythm Heart sounds: S1 normal heart sound present and S2 normal heart sound present Skin: Rashes: no rashes Wounds: no wounds Neuro: General: patient oriented x3 and CN's II-XI intact bilaterally Cranial nerves: Yes CN's II-XII intact bilaterally and Yes Equal, round and reactive pupils present Cognition (Neuro): normal cognition Speech: normal speech Gait exam (Neuro): Normal gait present Motor exam (neuro): 5/5 motor strength present throughout Extrem: General: normal to inspection, full ROM, no joint enlargement and no pedal edema Objective Data Vital Signs Vital Signs: Vital Signs - 24 hr 10/18/20 18:00 10/18/20 20:00 10/18/20 20:16 Temperature 36.4 C L Pulse Rate 66 66 70 Respiratory Rate 20 Blood Pressure 101/55 L Pulse Oximetry 95 94 10/18/20 20:50 10/18/20 22:00 10/18/20 23:31 Temperature 36.3 C L Pulse Rate 69 62 60 Respiratory Rate 20 Blood Pressure 101/59 L Pulse Oximetry 95 10/18/20 23:58 10/19/20
[2020-10-20] VITALS (23 sets, daily range): BP systolic 99–113; BP diastolic 61–66; PULSE 52–74; RESP 18–26; TEMP 35.6–36.6; O2SAT 90–97
[2020-10-20] MEDS: ALBUTEROL SULFATE (*SP) INHALER 2 PUFF INHALATION ×5 (03:50→20:49)
[2020-10-20 05:08] LABS: Hematocrit 37.3 % (42.0-52.0); Hemoglobin 12.7 g/dL (14.0-18.0); Mean Corpuscular Hemoglobin 30.7 pg (26-34); Mean Corpuscular Volume 90.1 fl (80-100); Mean Platelet Volume 12.1 fl (7.4-10.4); Platelet Count Result 153 k/mm3 (150-375); Red Blood Count 4.14 M/mm3 (4.6-6.20); White Blood Count 14.7 K/mm3 (4.5-10.0)
[2020-10-20 05:27] LABS: Anion Gap 3 mmol/L (8-16); Blood Urea Nitrogen 20 mg/dL (9-20); Carbon Dioxide 28 mmol/L (22-30); Chloride 102 mmol/L (98-107); Estimated CRCL calculation 65 ml/min; Estimated Glomerular Filt Rate > 60; Glucose 80 mg/dL (75-110); Potassium 4.6 mmol/L (3.4-5.0); Sodium 133 mmol/L (137-145)
[2020-10-20] MEDS: ENOXAPARIN 100 MG/ML SYRINGE 85 MG SUB-Q ×2 (05:39→17:26)
[2020-10-20] MEDS: PANTOPRAZOLE 40 MG TABLET PO (08:23)
[2020-10-20] MEDS: DEXAMETHASONE SOD PHOS INJ 4 MG/ML VIAL 6 MG IV PUSH (08:23)
[2020-10-20] MEDS: SOTALOL HCL 80 MG TABLET PO ×2 (08:23→20:49)
--- NOTE | 2020-10-20 10:48 | PM.IMPN ---
Progress Note: A&P Assessment and Plan (1) Acute respiratory failure with hypoxia: Code(s): J96.01 - Acute respiratory failure with hypoxia Status: Acute Assessment and Plan: pt has completed 10 days of remdesivir and steroids Continue respiratory support, pt may need to discharge on oxygen Pt can come off isolation Wean off oxygen (2) Pneumonia due to COVID-19 virus: Code(s): U07.1 - COVID-19; J12.82 - Pneumonia due to coronavirus disease 2019 Status: Acute Assessment and Plan: Completed treatment of as below Convalescent plasma Remdesivir for 10 days and 10 days Dexamethasone (3) Atrial fibrillation with rapid ventricular response: Code(s): I48.91 - Unspecified atrial fibrillation Status: Acute Assessment and Plan: Off of Cardizem drip Cardiology recommendation appreciated Anticoagulated On metoprolol patient's heart rate seems to be better controlled (4) RONALD (obstructive sleep apnea): Code(s): G47.33 - Obstructive sleep apnea (adult) (pediatric) Status: Acute Assessment and Plan: Patient uses a CPAP at nighttime (5) Essential hypertension: Code(s): I10 - Essential (primary) hypertension Status: Acute Assessment and Plan: Continue to monitor (6) Hyponatremia: Code(s): E87.1 - Hypo-osmolality and hyponatremia Status: Acute Assessment and Plan: Daily CMP (7) Acute hyperkalemia: Code(s): E87.5 - Hyperkalemia Status: Resolved Assessment and Plan: Resolved monitor (8) Leucocytosis: Code(s): D72.829 - Elevated white blood cell count, unspecified Status: Acute Assessment and Plan: Likely secondary to steroids continue to monitor Subjective Date/time seen: 10/20/20 10:48 Interval history: Patient was admitted to the hospital was found to have COVID-19 pneumonia required BiPAP/high-flow nasal cannula pulmonology was consulted patient still requiring high oxygen. Complain of shortness of breath and cough Exam Narrative: Exam Narrative: Alert Chest on high-flow nasal cannula oxygen positive crackles Abdomen nontender nondistended CVS S1 + S2 Lower extremity edema Objective Data Vital Signs Vital Signs: Vital Signs - 24 hr 10/19/20 12:00 10/19/20 14:00 10/19/20 14:21 Temperature 98.7 F Pulse Rate 59 L 64 66 Respiratory Rate 24 H 22 H Blood Pressure 108/65 Pulse Oximetry 95 95 10/19/20 16:00 10/19/20 18:00 10/19/20 19:56 Temperature 97.7 F 97.6 F Pulse Rate 58 L 57 L 60 Respiratory Rate 22 H 24 H Blood Pressure 110/70 107/66 Pulse Oximetry 95 99 10/19/20 20:00 10/19/20 20:02 10/19/20 20:30 Temperature Pulse Rate 59 L 59 L 63 Respiratory Rate Blood Pressure Pulse Oximetry 98 95 10/19/20 22:00 10/19/20 22:12 10/19/20 23:57 Temperature 97.7 F Pulse Rate 61 61 60 Respiratory Rate 32 H 20 Blood Pressure 103/56 L Pulse Oximetry 95 97 10/20/20 00:00 10/20/20 02:00 10/20/20 02:40 Temperature Pulse Rate 74 58 L 56 L Respiratory Rate Blood Pressure Pulse Oximetry 95 97 10/20/20 04:00 10/20/20 04:53 10/20/20 06:00 Temperature 97.6 F Pulse Rate 52 L 52 L 58 L Respiratory Rate 20 Blood Pressure 113/65 Pulse Oximetry 94 94 10/20/20 08:00 10/20/20 08:23 10/20/20 08:30 Temperature Pulse Rate 63 70 69 Respiratory Rate 26 H Blood Pressure Pulse Oximetry 94 92 10/20/20 08:34 10/20/20 08:52 10/20/20 09:25 Temperature 96.0 F L Pulse Rate 65 63 Respiratory Rate 21 H 20 Blood Pressure 106/61 Pulse Oximetry 95 90 93 Intake/Output Intake/Output: Intake & Output 10/17/20 10/18/20 10/19/20 10/20/20 23:59 23:59 23:59 23:59 Intake Total 2080 240 1200 0 Output Total 4370 587 8836 750 Balance [phone] -487 -[phone] -306 Meds/Results Medications: Active Medications Generic Name Dose Route Start Last Admin Trade Name Freq PRN Reason Sto
[2020-10-21] VITALS (21 sets, daily range): BP systolic 107–120; BP diastolic 63–76; PULSE 56–78; RESP 18–24; TEMP 35.6–36.6; O2SAT 92–98
[2020-10-21] MEDS: ALBUTEROL SULFATE (*SP) INHALER 2 PUFF INHALATION ×5 (02:00→21:56)
[2020-10-21] MEDS: ENOXAPARIN 100 MG/ML SYRINGE 85 MG SUB-Q ×2 (06:08→17:17)
[2020-10-21 08:00] LABS: Hemoglobin 13.6 g/dL (14.0-18.0); Mean Corpuscular Hemoglobin 31.1 pg (26-34); Mean Corpuscular Volume 91.5 fl (80-100); Platelet Count Result 205 k/mm3 (150-375); Red Blood Count 4.37 M/mm3 (4.6-6.20); Red Cell Distribution Width 12.2 % (11.5-14.5); White Blood Count 15.2 K/mm3 (4.5-10.0)
[2020-10-21 08:12] LABS: Albumin Level 2.9 g/dL (3.5-5.1); Alkaline Phosphatase 83 U/L (38-126); Anion Gap 6 mmol/L (8-16); Aspartate Amino Transferase 42 U/L (17-59); Bilirubin,Total 0.3 mg/dL (0.2-1.3); Blood Urea Nitrogen 18 mg/dL (9-20); Calcium 8.2 mg/dL (8.4-10.2); Carbon Dioxide 24 mmol/L (22-30); Chloride 103 mmol/L (98-107); Estimated CRCL calculation 73 ml/min; Estimated Glomerular Filt Rate > 60; Glucose 162 mg/dL (75-110); Potassium 3.6 mmol/L (3.4-5.0); Sodium 133 mmol/L (137-145)
[2020-10-21] MEDS: SOTALOL HCL 80 MG TABLET PO ×2 (08:17→21:55)
[2020-10-21] MEDS: PANTOPRAZOLE 40 MG TABLET PO (08:17)
[2020-10-21] MEDS: DEXAMETHASONE SOD PHOS INJ 4 MG/ML VIAL 6 MG IV PUSH (08:17)
[2020-10-21 08:19] LABS: Alanine Aminotransferase 112 U/L (4-50)
[2020-10-21 09:02] LABS: Vitamin D 25 Hydroxy 14.4 ng/mL
--- NOTE | 2020-10-21 11:27 | PM.IMPN ---
Progress Note: A&P Assessment and Plan (1) Acute respiratory failure with hypoxia: Code(s): J96.01 - Acute respiratory failure with hypoxia Status: Acute Assessment and Plan: pt has completed 10 days of remdesivir and steroids Continue respiratory support, pt may need to discharge on oxygen Pt can come off isolation Wean off oxygen (2) Pneumonia due to COVID-19 virus: Code(s): U07.1 - COVID-19; J12.82 - Pneumonia due to coronavirus disease 2019 Status: Acute Assessment and Plan: Completed treatment of as below Convalescent plasma Remdesivir for 10 days and 10 days Dexamethasone (3) Atrial fibrillation with rapid ventricular response: Code(s): I48.91 - Unspecified atrial fibrillation Status: Acute Assessment and Plan: Off of Cardizem drip Cardiology recommendation appreciated Anticoagulated On metoprolol patient's heart rate seems to be better controlled (4) RONALD (obstructive sleep apnea): Code(s): G47.33 - Obstructive sleep apnea (adult) (pediatric) Status: Acute Assessment and Plan: Patient uses a CPAP at nighttime (5) Essential hypertension: Code(s): I10 - Essential (primary) hypertension Status: Acute Assessment and Plan: Continue to monitor (6) Hyponatremia: Code(s): E87.1 - Hypo-osmolality and hyponatremia Status: Acute Assessment and Plan: Daily CMP (7) Acute hyperkalemia: Code(s): E87.5 - Hyperkalemia Status: Resolved Assessment and Plan: Resolved monitor (8) Leucocytosis: Code(s): D72.829 - Elevated white blood cell count, unspecified Status: Acute Assessment and Plan: Likely secondary to steroids continue to monitor (9) Vitamin D deficiency: Code(s): E55.9 - Vitamin D deficiency, unspecified Status: Acute Assessment and Plan: Replace Subjective Date/time seen: 10/21/20 11:27 Interval history: Patient was admitted to the hospital was found to have COVID-19 pneumonia required BiPAP/high-flow nasal cannula pulmonology was consulted patient still requiring high oxygen. Complain of shortness of breath and cough Started vitamin D zinc and vitamin-C Patient denies fever headache chest pain h I am seeing the patient for code pneumonia Exam Narrative: Exam Narrative: Alert Chest on high-flow nasal cannula oxygen positive crackles Abdomen nontender nondistended CVS S1 + S2 Lower extremity edema Objective Data Vital Signs Vital Signs: Vital Signs - 24 hr 10/20/20 12:00 10/20/20 14:00 10/20/20 14:51 Temperature 96.0 F L Pulse Rate 56 L 63 Respiratory Rate 24 H Blood Pressure 101/62 Pulse Oximetry 94 97 10/20/20 16:00 10/20/20 18:00 10/20/20 20:00 Temperature 96.4 F L 97.4 F L Pulse Rate 66 70 72 Respiratory Rate 20 18 Blood Pressure 99/66 L 102/66 Pulse Oximetry 95 94 10/20/20 20:49 10/20/20 21:08 10/20/20 22:00 Temperature Pulse Rate 72 73 Respiratory Rate Blood Pressure Pulse Oximetry 95 10/20/20 23:22 10/21/20 00:00 10/21/20 02:00 Temperature 97.9 F Pulse Rate 65 64 61 Respiratory Rate 18 18 Blood Pressure 107/62 Pulse Oximetry 93 93 10/21/20 03:32 10/21/20 04:00 10/21/20 06:00 Temperature 97.9 F Pulse Rate 65 65 56 L Respiratory Rate 18 18 Blood Pressure 119/68 Pulse Oximetry 97 97 10/21/20 08:00 10/21/20 08:17 10/21/20 08:23 Temperature 97.2 F L Pulse Rate 71 69 70 Respiratory Rate 24 H 24 H Blood Pressure 112/63 Pulse Oximetry 94 94 10/21/20 09:30 10/21/20 10:00 Temperature Pulse Rate 66 Respiratory Rate Blood Pressure Pulse Oximetry 93 Intake/Output Intake/Output: Intake & Output 10/18/20 10/19/20 10/20/20 10/21/20 23:59 23:59 23:59 23:59 Intake Total 240 1200 780 400 Output Total 975 1950 1090 240 [facility] -735 -750 -310 160 Meds/Results Medications: Active Medications Generic
[2020-10-21] MEDS: ALPRAZolam (*CRX) 0.25 MG TABLET PO ×2 (17:17→21:55)
[2020-10-22] VITALS (22 sets, daily range): BP systolic 97–122; BP diastolic 69–78; PULSE 50–84; RESP 18–24; TEMP 36.1–36.6; O2SAT 94–98
[2020-10-22] MEDS: ENOXAPARIN 100 MG/ML SYRINGE 85 MG SUB-Q ×2 (05:59→18:04)
[2020-10-22] MEDS: ALPRAZolam (*CRX) 0.25 MG TABLET PO ×3 (06:01→18:05)
[2020-10-22] MEDS: ASCORBIC ACID 500 MG TABLET 1000 MG PO (08:38)
[2020-10-22] MEDS: ZINC SULFATE 220 MG CAPSULE PO (08:38)
[2020-10-22] MEDS: PANTOPRAZOLE 40 MG TABLET PO (08:38)
[2020-10-22] MEDS: SOTALOL HCL 80 MG TABLET PO ×2 (08:38→21:17)
[2020-10-22] MEDS: DEXAMETHASONE SOD PHOS INJ 4 MG/ML VIAL 6 MG IV PUSH (08:38)
[2020-10-22] MEDS: CHOLECALCIFEROL 1,000 UNITS TABLET 5000 UNITS PO (08:38)
[2020-10-22] MEDS: ALBUTEROL SULFATE (*SP) INHALER 2 PUFF INHALATION ×4 (08:46→21:17)
[2020-10-22] MEDS: SIMETHICONE 80 MG TAB.CHEW PO ×2 (10:38→16:24)
[2020-10-22 10:55] LABS: Hematocrit 40.3 % (42.0-52.0); Hemoglobin 13.4 g/dL (14.0-18.0); Mean Corpuscular HGB Conc 33.3 g/dl (32-36); Mean Corpuscular Hemoglobin 30.9 pg (26-34); Mean Corpuscular Volume 92.9 fl (80-100); Mean Platelet Volume 12.5 fl (7.4-10.4); Platelet Count Result 130 k/mm3 (150-375); Red Blood Count 4.34 M/mm3 (4.6-6.20); Red Cell Distribution Width 12.4 % (11.5-14.5); White Blood Count 16.7 K/mm3 (4.5-10.0)
[2020-10-22 11:11] LABS: Alanine Aminotransferase 94 U/L (4-50); Albumin Level 2.9 g/dL (3.5-5.1); Alkaline Phosphatase 84 U/L (38-126); Anion Gap 4 mmol/L (8-16); Aspartate Amino Transferase 35 U/L (17-59); Bilirubin,Total 0.2 mg/dL (0.2-1.3); Blood Urea Nitrogen 17 mg/dL (9-20); Calcium 8.2 mg/dL (8.4-10.2); Carbon Dioxide 26 mmol/L (22-30); Chloride 102 mmol/L (98-107); Estimated CRCL calculation 65 ml/min; Estimated Glomerular Filt Rate > 60; Glucose 136 mg/dL (75-110); Sodium 132 mmol/L (137-145)
[2020-10-22 11:21] LABS: Band Neutrophils Percent 1 % (0-6); Lymphocytes Absolute Manual 1.16 K/mm3 (1.1-4.5); Neutrophils Absolute Manual 15.53 K/mm3 (1.3-6.7); Neutrophils Percent Manual 92 % (46-73); Platelet Estimate Adequate (Adequate); Total Cells Counted 100
--- NOTE | 2020-10-22 11:41 | PM.IMPN ---
Progress Note: A&P Assessment and Plan (1) Acute respiratory failure with hypoxia: Code(s): J96.01 - Acute respiratory failure with hypoxia Status: Acute Assessment and Plan: pt has completed 10 days of remdesivir and steroids Continue respiratory support, pt may need to discharge on oxygen Pt can come off isolation Wean off oxygen Repeat chest x-ray today (2) Pneumonia due to COVID-19 virus: Code(s): U07.1 - COVID-19; J12.82 - Pneumonia due to coronavirus disease 2018 Status: Acute Assessment and Plan: Completed treatment of as below Convalescent plasma Remdesivir for 10 days and 10 days Dexamethasone (3) Atrial fibrillation with rapid ventricular response: Code(s): I48.91 - Unspecified atrial fibrillation Status: Acute Assessment and Plan: Off of Cardizem drip Cardiology recommendation appreciated Anticoagulated On metoprolol patient's heart rate seems to be better controlled (4) RONALD (obstructive sleep apnea): Code(s): G47.33 - Obstructive sleep apnea (adult) (pediatric) Status: Acute Assessment and Plan: Patient uses a CPAP at nighttime (5) Essential hypertension: Code(s): I10 - Essential (primary) hypertension Status: Acute Assessment and Plan: Continue to monitor (6) Hyponatremia: Code(s): E87.1 - Hypo-osmolality and hyponatremia Status: Acute Assessment and Plan: Daily CMP (7) Acute hyperkalemia: Code(s): E87.5 - Hyperkalemia Status: Resolved Assessment and Plan: Resolved monitor (8) Leucocytosis: Code(s): D72.829 - Elevated white blood cell count, unspecified Status: Acute Assessment and Plan: Likely secondary to steroids continue to monitor (9) Vitamin D deficiency: Code(s): E55.9 - Vitamin D deficiency, unspecified Status: Acute Assessment and Plan: Replace Subjective Date/time seen: 10/22/20 11:41 Interval history: Patient was admitted to the hospital was found to have COVID-19 pneumonia required BiPAP/high-flow nasal cannula pulmonology was consulted patient . Complain of shortness of breath and cough Started vitamin D zinc and vitamin-C Repeat chest x-ray today Follow labs Oxygen requirement has improved But patient still on high-flow oxygen Patient denies fever headache chest pain I am seeing the patient for code pneumonia Exam Narrative: Exam Narrative: Alert Chest on high-flow nasal cannula oxygen positive crackles Abdomen nontender nondistended CVS S1 + S2 Lower extremity edema Objective Data Vital Signs Vital Signs: Vital Signs - 24 hr 10/21/20 12:00 10/21/20 14:00 10/21/20 14:37 Temperature 96.9 F L Pulse Rate 69 78 Respiratory Rate 24 H Blood Pressure 107/65 Pulse Oximetry 94 94 10/21/20 16:00 10/21/20 18:15 10/21/20 19:43 Temperature 96.0 F L 97.6 F Pulse Rate 70 69 70 Respiratory Rate 20 18 Blood Pressure 108/70 109/69 Pulse Oximetry 95 96 10/21/20 20:00 10/21/20 20:38 10/21/20 21:55 Temperature Pulse Rate 66 66 Respiratory Rate 18 Blood Pressure Pulse Oximetry 92 92 10/21/20 22:00 10/21/20 23:21 10/22/20 00:00 Temperature 97.8 F Pulse Rate 60 57 L 54 L Respiratory Rate 18 18 Blood Pressure 120/76 Pulse Oximetry 98 98 10/22/20 01:55 10/22/20 02:00 10/22/20 04:00 Temperature Pulse Rate 50 L 63 Respiratory Rate 18 Blood Pressure Pulse Oximetry 94 97 10/22/20 04:02 10/22/20 06:00 10/22/20 07:55 Temperature 97.9 F Pulse Rate 61 63 Respiratory Rate 18 Blood Pressure 122/78 Pulse Oximetry 97 97 10/22/20 08:00 10/22/20 08:38 10/22/20 10:00 Temperature 97.2 F L Pulse Rate 55 L 65 63 Respiratory Rate 18 Blood Pressure 118/70 Pulse Oximetry 97 Intake/Output Intake/Output: Intake & Output 10/19/20 10/20/20 10/21/20 10/22/20 23:59 23:59 23:59 23:59 Intake Total 1200 780 1
[2020-10-23] VITALS (19 sets, daily range): BP systolic 102–120; BP diastolic 51–80; PULSE 57–95; RESP 18–20; TEMP 36–36.4; O2SAT 90–96
[2020-10-23] MEDS: ALBUTEROL SULFATE (*SP) INHALER 2 PUFF INHALATION ×5 (05:41→21:12)
[2020-10-23] MEDS: ENOXAPARIN 100 MG/ML SYRINGE 85 MG SUB-Q ×2 (05:42→16:55)
[2020-10-23 05:46] LABS: Basophils Percent Auto 0.3 % (0.2-1.2); Eosinophils Absolute Auto 0.1 K/mm3 (0-0.3); Eosinophils Percent Auto 0.4 % (0-4.4); Hematocrit 39.8 % (42.0-52.0); Hemoglobin 13.4 g/dL (14.0-18.0); Immature Granulocyte Absolute 0.19 K/mm3 (0.00-0.031); Immature Granulocyte Percent A 1.2 % (0-0.5); Lymphocytes Absolute Auto 1.01 K/mm3 (0.9-3.2); Lymphocytes Percent Auto 6.4 % (18.3-44.2); Mean Corpuscular HGB Conc 33.7 g/dl (32-36); Mean Corpuscular Hemoglobin 30.2 pg (26-34); Mean Corpuscular Volume 89.8 fl (80-100); Mean Platelet Volume 12.7 fl (7.4-10.4); Monocytes Absolute Auto 0.9 K/mm3 (0.1-0.6); Monocytes Percent Auto 5.7 % (2.6-8.5); Neutrophils Absolute Auto 13.7 K/mm3 (1.3-6.7); Platelet Count Result 138 k/mm3 (150-375); Red Blood Count 4.43 M/mm3 (4.6-6.20); Red Cell Distribution Width 12.3 % (11.5-14.5); White Blood Count 15.9 K/mm3 (4.5-10.0)
[2020-10-23 06:07] LABS: Alanine Aminotransferase 91 U/L (4-50); Albumin Level 2.8 g/dL (3.5-5.1); Alkaline Phosphatase 75 U/L (38-126); Anion Gap 2 mmol/L (8-16); Aspartate Amino Transferase 33 U/L (17-59); Bilirubin,Total 0.2 mg/dL (0.2-1.3); Blood Urea Nitrogen 19 mg/dL (9-20); Calcium 8.4 mg/dL (8.4-10.2); Carbon Dioxide 28 mmol/L (22-30); Chloride 102 mmol/L (98-107); Estimated CRCL calculation 73 ml/min; Estimated Glomerular Filt Rate > 60; Glucose 78 mg/dL (75-110); Potassium 4.4 mmol/L (3.4-5.0); Sodium 132 mmol/L (137-145)
[2020-10-23] MEDS: CHOLECALCIFEROL 1,000 UNITS TABLET 5000 UNITS PO (08:29)
[2020-10-23] MEDS: ASCORBIC ACID 500 MG TABLET 1000 MG PO (08:29)
[2020-10-23] MEDS: SOTALOL HCL 80 MG TABLET PO ×2 (08:30→21:11)
[2020-10-23] MEDS: PANTOPRAZOLE 40 MG TABLET PO (08:30)
[2020-10-23] MEDS: ZINC SULFATE 220 MG CAPSULE PO (08:30)
[2020-10-23] MEDS: DEXAMETHASONE SOD PHOS INJ 4 MG/ML VIAL 6 MG IV PUSH (08:30)
[2020-10-23] MEDS: ALPRAZolam (*CRX) 0.25 MG TABLET PO ×2 (08:38→17:05)
--- NOTE | 2020-10-23 16:41 | PM.IMPN ---
Progress Note: A&P Assessment and Plan (1) Acute respiratory failure with hypoxia: Code(s): J96.01 - Acute respiratory failure with hypoxia Status: Acute Assessment and Plan: Due to COVID-19 pneumonia On 40 % high flow oxygen cont to wean (2) Pneumonia due to COVID-19 virus: Code(s): U07.1 - COVID-19; J12.82 - Pneumonia due to coronavirus disease 2019 Status: Acute Assessment and Plan: Admitted 10/03/2020 Convalescent plasma Remdesivir and dexamethasone for 10 days Much improved (3) Atrial fibrillation with rapid ventricular response: Code(s): I48.91 - Unspecified atrial fibrillation Status: Acute Assessment and Plan: Off of Cardizem drip Anticoagulated On metoprolol HR controlled (4) RONALD (obstructive sleep apnea): Code(s): G47.33 - Obstructive sleep apnea (adult) (pediatric) Status: Acute Assessment and Plan: CPAP at nighttime (5) Essential hypertension: Code(s): I10 - Essential (primary) hypertension Status: Acute Assessment and Plan: Controlled (6) Hyponatremia: Code(s): E87.1 - Hypo-osmolality and hyponatremia Status: Acute Assessment and Plan: Resolved Monitor (7) Acute hyperkalemia: Code(s): E87.5 - Hyperkalemia Status: Resolved Assessment and Plan: Resolved (8) Leucocytosis: Qualifiers: Leukocytosis type: unspecified Qualified Code(s): D72.829 - Elevated white blood cell count, unspecified Code(s): D72.829 - Elevated white blood cell count, unspecified Status: Acute Assessment and Plan: Likely secondary to steroids continue to monitor (9) Vitamin D deficiency: Code(s): E55.9 - Vitamin D deficiency, unspecified Status: Acute Assessment and Plan: Continue PO replacement Subjective Date/time seen: 10/23/20 16:41 Interval history: Patient was admitted to the hospital was found to have COVID-19 pneumonia required BiPAP/high-flow nasal cannula pulmonology was consulted patient, slow improvement with 40% high flow oxygen, pt has completed 10 days of remdesivir and dexamethasone. Review of Systems Review of Systems: All systems reviewed & are unremarkable except as noted in HPI and below Exam Narrative: Exam Narrative: GENERALLY: middle aged man relaxed and comfortable on 2 liters of oxygen HEENT: PERRL, sclerae nonicteric, pharyngeal mucosa pink and intact NECK: No JVD CHEST: normal respiratory effort ABDOMEN: BS+, soft, nontender, no mass, no bruits EXTREMITIES: No cyanosis, edema, or clubbing NEUROLOGIC: CN intact and symmetric to inspection. MUSCULOSKELETAL: Tone and strength symmetric. PSYCH: Alert. Oriented to person, place, and time. Objective Data Vital Signs Vital Signs: Vital Signs - 24 hr 10/22/20 16:51 10/22/20 18:00 10/22/20 19:40 Temperature 36.5 C Pulse Rate 76 84 Respiratory Rate 20 Blood Pressure 113/72 Pulse Oximetry 94 95 10/22/20 20:00 10/22/20 21:05 10/22/20 21:17 Temperature Pulse Rate 81 77 76 Respiratory Rate 18 18 Blood Pressure Pulse Oximetry 94 94 10/22/20 22:00 10/23/20 00:00 10/23/20 02:00 Temperature 36.4 C Pulse Rate 76 68 57 L Respiratory Rate 20 Blood Pressure 109/76 Pulse Oximetry 96 10/23/20 04:00 10/23/20 08:00 10/23/20 08:16 Temperature 36.3 C L 36.2 C L Pulse Rate 60 71 74 Respiratory Rate 20 20 Blood Pressure 102/51 L 120/69 Pulse Oximetry 93 95 95 10/23/20 08:30 10/23/20 09:01 10/23/20 10:00 Temperature Pulse Rate 78 78 Respiratory Rate Blood Pressure Pulse Oximetry 94 10/23/20 11:20 10/23/20 12:00 10/23/20 14:00 Temperature 36.1 C L Pulse Rate 61 60 67 Respiratory Rate 20 Blood Pressure 107/71 Pulse Oximetry 95 94 10/23/20 14:48 Temperature Pulse Rate Respiratory Rate Blood Pressure Pulse Oximetry 94 Intake/Output Intake/Output: Intake
[2020-10-24] VITALS (22 sets, daily range): BP systolic 108–127; BP diastolic 64–81; PULSE 59–103; RESP 16–22; TEMP 36.2–36.8; O2SAT 91–97
[2020-10-24] MEDS: ALBUTEROL SULFATE (*SP) INHALER 2 PUFF INHALATION ×7 (00:07→23:14)
[2020-10-24] MEDS: ALPRAZolam (*CRX) 0.25 MG TABLET PO ×3 (00:09→23:14)
[2020-10-24 05:49] LABS: Basophils Percent Auto 0.2 % (0.2-1.2); Eosinophils Absolute Auto 0.1 K/mm3 (0-0.3); Eosinophils Percent Auto 0.5 % (0-4.4); Hematocrit 41.6 % (42.0-52.0); Hemoglobin 13.9 g/dL (14.0-18.0); Immature Granulocyte Absolute 0.27 K/mm3 (0.00-0.031); Immature Granulocyte Percent A 1.7 % (0-0.5); Lymphocytes Absolute Auto 1.03 K/mm3 (0.9-3.2); Lymphocytes Percent Auto 6.5 % (18.3-44.2); Mean Corpuscular HGB Conc 33.4 g/dl (32-36); Mean Corpuscular Hemoglobin 30.9 pg (26-34); Mean Corpuscular Volume 92.4 fl (80-100); Mean Platelet Volume 12.7 fl (7.4-10.4); Monocytes Absolute Auto 0.9 K/mm3 (0.1-0.6); Monocytes Percent Auto 5.4 % (2.6-8.5); Neutrophils Absolute Auto 13.5 K/mm3 (1.3-6.7); Neutrophils Percent Auto 85.7 % (45.5-73.1); Platelet Count Result 118 k/mm3 (150-375); Red Cell Distribution Width 12.7 % (11.5-14.5); White Blood Count 15.8 K/mm3 (4.5-10.0)
[2020-10-24 06:11] LABS: Alanine Aminotransferase 87 U/L (4-50); Alkaline Phosphatase 86 U/L (38-126); Anion Gap 4 mmol/L (8-16); Aspartate Amino Transferase 33 U/L (17-59); Bilirubin,Total 0.2 mg/dL (0.2-1.3); Blood Urea Nitrogen 17 mg/dL (9-20); Calcium 8.7 mg/dL (8.4-10.2); Carbon Dioxide 28 mmol/L (22-30); Chloride 102 mmol/L (98-107); Estimated CRCL calculation 65 ml/min; Estimated Glomerular Filt Rate > 60; Glucose 82 mg/dL (75-110); Potassium 4.6 mmol/L (3.4-5.0); Sodium 134 mmol/L (137-145)
[2020-10-24] MEDS: ENOXAPARIN 100 MG/ML SYRINGE 85 MG SUB-Q ×2 (06:29→17:07)
[2020-10-24] MEDS: ASCORBIC ACID 500 MG TABLET 1000 MG PO (08:10)
[2020-10-24] MEDS: ZINC SULFATE 220 MG CAPSULE PO (08:11)
[2020-10-24] MEDS: SOTALOL HCL 80 MG TABLET PO ×2 (08:11→20:51)
[2020-10-24] MEDS: CHOLECALCIFEROL 1,000 UNITS TABLET 5000 UNITS PO (08:11)
[2020-10-24] MEDS: PANTOPRAZOLE 40 MG TABLET PO (08:12)
[2020-10-24] MEDS: DEXAMETHASONE SOD PHOS INJ 4 MG/ML VIAL 6 MG IV PUSH (08:13)
--- NOTE | 2020-10-24 11:37 | PM.IMPN ---
Progress Note: A&P Assessment and Plan (1) Acute respiratory failure with hypoxia: Code(s): J96.01 - Acute respiratory failure with hypoxia Status: Acute Assessment and Plan: Due to COVID-19 pneumonia 10/24 on 5 L by NC Continue to wean as tolerated 10/24 PT/OT (2) Pneumonia due to COVID-19 virus: Code(s): U07.1 - COVID-19; J12.82 - Pneumonia due to coronavirus disease 2018 Status: Acute Assessment and Plan: Admitted 10/03/2020 Convalescent plasma Remdesivir and dexamethasone for 10 days (3) Atrial fibrillation with rapid ventricular response: Code(s): I48.91 - Unspecified atrial fibrillation Status: Acute Assessment and Plan: Off of Cardizem drip Anticoagulated On metoprolol HR controlled (4) RONALD (obstructive sleep apnea): Code(s): G47.33 - Obstructive sleep apnea (adult) (pediatric) Status: Acute Assessment and Plan: CPAP at nighttime (5) Essential hypertension: Code(s): I10 - Essential (primary) hypertension Status: Acute Assessment and Plan: Controlled (6) Hyponatremia: Code(s): E87.1 - Hypo-osmolality and hyponatremia Status: Acute Assessment and Plan: Resolved Monitor (7) Acute hyperkalemia: Code(s): E87.5 - Hyperkalemia Status: Resolved Assessment and Plan: Resolved (8) Leucocytosis: Qualifiers: Leukocytosis type: unspecified Qualified Code(s): D72.829 - Elevated white blood cell count, unspecified Code(s): D72.829 - Elevated white blood cell count, unspecified Status: Acute Assessment and Plan: Likely secondary to steroids continue to monitor (9) Vitamin D deficiency: Code(s): E55.9 - Vitamin D deficiency, unspecified Status: Acute Assessment and Plan: Continue PO replacement Subjective Date/time seen: 10/24/20 11:37 Interval history: Admitted 10/03/2020 with COVID-19 pneumonia. 10/24: Tired. Dyspnea on exertion. Good appetite. Denied pain. No bowel movement for a couple of days. Wants to start physical therapy. Review of Systems Review of Systems: All systems reviewed & are unremarkable except as noted in HPI and below Exam Narrative: Exam Narrative: HEENT: PERRL, sclerae nonicteric, pharyngeal mucosa pink and intact NECK: No JVD CHEST: Coarse breath sounds. Normal effort. HEART: NL S1/S2, regular, no murmur ABDOMEN: BS+, soft, nontender, no mass, no bruits EXTREMITIES: No cyanosis, edema, or clubbing NEUROLOGIC: CN intact and symmetric to inspection. MUSCULOSKELETAL: Tone and strength symmetric. PSYCH: Alert. Oriented to person, place, and time. Objective Data Vital Signs Vital Signs: Vital Signs - 24 hr 10/23/20 12:00 10/23/20 14:00 10/23/20 14:48 Temperature Pulse Rate 60 67 Respiratory Rate Blood Pressure Pulse Oximetry 94 94 10/23/20 16:00 10/23/20 18:00 10/23/20 20:00 Temperature 97.5 F L 96.8 F L Pulse Rate 83 95 90 Respiratory Rate 18 18 Blood Pressure 114/73 120/80 Pulse Oximetry 94 95 10/23/20 21:11 10/23/20 22:00 10/23/20 22:30 Temperature Pulse Rate 82 76 76 Respiratory Rate 18 Blood Pressure Pulse Oximetry 96 10/23/20 23:48 10/24/20 00:00 10/24/20 02:00 Temperature 96.9 F L Pulse Rate 75 70 60 Respiratory Rate 18 18 Blood Pressure 119/74 Pulse Oximetry 95 95 10/24/20 03:10 10/24/20 04:00 10/24/20 04:08 Temperature 97.7 F Pulse Rate 65 61 59 L Respiratory Rate 18 20 16 Blood Pressure 127/75 Pulse Oximetry 97 94 95 10/24/20 04:15 10/24/20 06:00 10/24/20 07:48 Temperature 97.6 F Pulse Rate 59 L 65 73 Respiratory Rate 18 20 Blood Pressure 110/64 Pulse Oximetry 95 92 10/24/20 08:00 10/24/20 08:11 10/24/20 10:00 Temperature Pulse Rate 78 78 68 Respiratory Rate Blood Pressure Pulse Oximetry 94 10/24/20 11:04 Temperature Pulse Rate Respiratory Rate Blood Pr
--- NOTE | 2020-10-24 20:33 | PC.NURSE ---
This patient, Davian Shepherd, was transferred to room 257 on 10/24/20 at 2024. Personal belongings sent with patient. Report given to SARKIS Rodriguez. Appropriate documentation sent with patient.
[2020-10-24] MEDS: SENNOSIDES 8.6 MG TABLET PO (20:51)
--- NOTE | 2020-10-24 20:55 | PC.NURSE ---
This patient, Davian Shepherd, was received from [U 212/01 ] on 10/24/20 at 2030. Patient/family oriented to unit policies and routines
[2020-10-25] VITALS (10 sets, daily range): BP systolic 102–121; BP diastolic 58–77; PULSE 61–89; RESP 18–22; TEMP 36.5–36.7; O2SAT 93–97
[2020-10-25] MEDS: ALBUTEROL SULFATE (*SP) INHALER 2 PUFF INHALATION ×5 (04:01→20:05)
[2020-10-25] MEDS: ENOXAPARIN 100 MG/ML SYRINGE 85 MG SUB-Q ×2 (05:44→17:03)
[2020-10-25 06:09] LABS: Basophils Percent Auto 0.3 % (0.2-1.2); Eosinophils Absolute Auto 0.2 K/mm3 (0-0.3); Eosinophils Percent Auto 1.3 % (0-4.4); Hematocrit 40.4 % (42.0-52.0); Hemoglobin 13.6 g/dL (14.0-18.0); Immature Granulocyte Absolute 0.32 K/mm3 (0.00-0.031); Lymphocytes Absolute Auto 1.14 K/mm3 (0.9-3.2); Lymphocytes Percent Auto 7.2 % (18.3-44.2); Mean Corpuscular HGB Conc 33.7 g/dl (32-36); Mean Corpuscular Hemoglobin 30.6 pg (26-34); Mean Corpuscular Volume 90.8 fl (80-100); Mean Platelet Volume 12.4 fl (7.4-10.4); Monocytes Percent Auto 6.3 % (2.6-8.5); Neutrophils Absolute Auto 13.2 K/mm3 (1.3-6.7); Neutrophils Percent Auto 82.9 % (45.5-73.1); Platelet Count Result 140 k/mm3 (150-375); Red Blood Count 4.45 M/mm3 (4.6-6.20); Red Cell Distribution Width 12.7 % (11.5-14.5); White Blood Count 15.9 K/mm3 (4.5-10.0)
[2020-10-25 06:19] LABS: Alanine Aminotransferase 88 U/L (4-50); Albumin Level 2.9 g/dL (3.5-5.1); Alkaline Phosphatase 78 U/L (38-126); Anion Gap 2 mmol/L (8-16); Aspartate Amino Transferase 35 U/L (17-59); Bilirubin,Total 0.2 mg/dL (0.2-1.3); Blood Urea Nitrogen 23 mg/dL (9-20); Calcium 8.8 mg/dL (8.4-10.2); Carbon Dioxide 31 mmol/L (22-30); Chloride 102 mmol/L (98-107); Estimated CRCL calculation 65 ml/min; Estimated Glomerular Filt Rate > 60; Glucose 81 mg/dL (75-110); Potassium 4.3 mmol/L (3.4-5.0); Sodium 135 mmol/L (137-145)
[2020-10-25] MEDS: SOTALOL HCL 80 MG TABLET PO ×2 (08:46→20:04)
[2020-10-25] MEDS: PANTOPRAZOLE 40 MG TABLET PO (08:46)
[2020-10-25] MEDS: ASCORBIC ACID 500 MG TABLET 1000 MG PO (08:47)
[2020-10-25] MEDS: CHOLECALCIFEROL 1,000 UNITS TABLET 5000 UNITS PO (08:47)
[2020-10-25] MEDS: ZINC SULFATE 220 MG CAPSULE PO (08:48)
[2020-10-25] MEDS: DEXAMETHASONE SOD PHOS INJ 4 MG/ML VIAL 6 MG IV PUSH (08:48)
--- NOTE | 2020-10-25 11:35 | PM.IMPN ---
Progress Note: A&P Assessment and Plan (1) Acute respiratory failure with hypoxia: Code(s): J96.01 - Acute respiratory failure with hypoxia Status: Acute Assessment and Plan: Due to COVID-19 pneumonia 10/24 on 5 L by AR Continue to wean as tolerated 10/24 PT/OT 10/25 4L by AR (2) Pneumonia due to COVID-19 virus: Code(s): U07.1 - COVID-19; J12.82 - Pneumonia due to coronavirus disease 2018 Status: Acute Assessment and Plan: Admitted 10/03/2020 Convalescent plasma Remdesivir and dexamethasone for 10 days (3) Atrial fibrillation with rapid ventricular response: Code(s): I48.91 - Unspecified atrial fibrillation Status: Acute Assessment and Plan: Off of Cardizem drip Anticoagulated On metoprolol HR controlled (4) RONALD (obstructive sleep apnea): Code(s): G47.33 - Obstructive sleep apnea (adult) (pediatric) Status: Acute Assessment and Plan: CPAP at nighttime (5) Essential hypertension: Code(s): I10 - Essential (primary) hypertension Status: Acute Assessment and Plan: Controlled (6) Hyponatremia: Code(s): E87.1 - Hypo-osmolality and hyponatremia Status: Acute Assessment and Plan: Resolved Monitor (7) Acute hyperkalemia: Code(s): E87.5 - Hyperkalemia Status: Resolved Assessment and Plan: Resolved (8) Leucocytosis: Qualifiers: Leukocytosis type: unspecified Qualified Code(s): D72.829 - Elevated white blood cell count, unspecified Code(s): D72.829 - Elevated white blood cell count, unspecified Status: Acute Assessment and Plan: Likely secondary to steroids continue to monitor (9) Vitamin D deficiency: Code(s): E55.9 - Vitamin D deficiency, unspecified Status: Acute Assessment and Plan: Continue PO replacement Subjective Date/time seen: 10/25/20 11:35 Interval history: Admitted 10/03/2020 with COVID-19 pneumonia. 10/25: Tired. Dyspnea on exertion. Good appetite. Denied pain. [place] with sitting up in bed. Bowels moved. Review of Systems Review of Systems: All systems reviewed & are unremarkable except as noted in HPI and below Exam Narrative: Exam Narrative: HEENT: PERRL, sclerae nonicteric, pharyngeal mucosa pink and intact NECK: No JVD CHEST: Coarse breath sounds with scattered fine crackles. Normal effort. HEART: NL S1/S2, regular, no murmur ABDOMEN: BS+, soft, nontender, no mass, no bruits EXTREMITIES: No cyanosis, edema, or clubbing NEUROLOGIC: CN intact and symmetric to inspection. MUSCULOSKELETAL: Tone and strength symmetric. PSYCH: Alert. Oriented to person, place, and time. Objective Data Vital Signs Vital Signs: Vital Signs - 24 hr 10/24/20 11:59 10/24/20 12:00 10/24/20 13:00 Temperature 97.7 F Pulse Rate 76 69 Respiratory Rate 22 H Blood Pressure 116/76 Pulse Oximetry 91 92 93 10/24/20 14:00 10/24/20 16:00 10/24/20 18:00 Temperature 97.2 F L Pulse Rate 86 94 76 Respiratory Rate 18 Blood Pressure 112/74 Pulse Oximetry 92 10/24/20 20:19 10/24/20 20:51 10/24/20 20:55 Temperature 98.2 F Pulse Rate 78 78 103 H Respiratory Rate 20 18 Blood Pressure 108/81 Pulse Oximetry 94 94 10/24/20 21:02 10/25/20 05:42 10/25/20 08:43 Temperature 98 F Pulse Rate 61 80 Respiratory Rate 22 H Blood Pressure 121/77 Pulse Oximetry 94 96 95 10/25/20 08:46 10/25/20 09:42 Temperature 98.0 F Pulse Rate 80 72 Respiratory Rate 20 Blood Pressure 102/69 Pulse Oximetry 94 Intake/Output Intake/Output: Intake & Output 10/22/20 10/23/20 10/24/20 10/25/20 23:59 23:59 23:59 23:59 Intake Total 1368 1180 1430 440 Output Total 600 800 950 350 Balance 768 380 480 90 Meds/Results Medications: Active Medications Generic Name Dose Route Start Last Admin Trade Name Freq PRN Reason Stop Dose Admin Acetaminophen 650 mg 10/05/20 11:47 Acetamino
[2020-10-25] MEDS: SENNOSIDES 8.6 MG TABLET PO (20:04)
[2020-10-25] MEDS: ALPRAZolam (*CRX) 0.25 MG TABLET PO (20:09)
[2020-10-26] VITALS (12 sets, daily range): BP systolic 100–123; BP diastolic 50–77; PULSE 55–81; RESP 16–20; TEMP 36–36.7; O2SAT 95–98
[2020-10-26] MEDS: ALBUTEROL SULFATE (*SP) INHALER 2 PUFF INHALATION ×5 (04:08→20:31)
[2020-10-26] MEDS: ENOXAPARIN 100 MG/ML SYRINGE 85 MG SUB-Q (05:13)
[2020-10-26] MEDS: ZINC SULFATE 220 MG CAPSULE PO (08:25)
[2020-10-26] MEDS: PANTOPRAZOLE 40 MG TABLET PO (08:25)
[2020-10-26] MEDS: ASCORBIC ACID 500 MG TABLET 1000 MG PO (08:25)
[2020-10-26] MEDS: CHOLECALCIFEROL 1,000 UNITS TABLET 5000 UNITS PO (08:26)
[2020-10-26] MEDS: SOTALOL HCL 80 MG TABLET PO ×2 (08:26→20:31)
--- NOTE | 2020-10-26 11:12 | PM.IMPN ---
Progress Note: A&P Assessment and Plan (1) Acute respiratory failure with hypoxia: Code(s): J96.01 - Acute respiratory failure with hypoxia Status: Acute Assessment and Plan: Due to COVID-19 pneumonia Weaning off oxygen nicely (2) Pneumonia due to COVID-19 virus: Code(s): U07.1 - COVID-19; J12.82 - Pneumonia due to coronavirus disease 2018 Status: Acute Assessment and Plan: Admitted 10/03/2020 Convalescent plasma Remdesivir and dexamethasone for 10 days Much improved (3) Atrial fibrillation with rapid ventricular response: Code(s): I48.91 - Unspecified atrial fibrillation Status: Acute Assessment and Plan: Off of Cardizem drip Anticoagulated On metoprolol HR controlled (4) RONALD (obstructive sleep apnea): Code(s): G47.33 - Obstructive sleep apnea (adult) (pediatric) Status: Acute Assessment and Plan: CPAP at nighttime (5) Essential hypertension: Code(s): I10 - Essential (primary) hypertension Status: Acute Assessment and Plan: Controlled (6) Hyponatremia: Code(s): E87.1 - Hypo-osmolality and hyponatremia Status: Acute Assessment and Plan: Resolved Monitor (7) Acute hyperkalemia: Code(s): E87.5 - Hyperkalemia Status: Resolved Assessment and Plan: Resolved (8) Leucocytosis: Qualifiers: Leukocytosis type: unspecified Qualified Code(s): D72.829 - Elevated white blood cell count, unspecified Code(s): D72.829 - Elevated white blood cell count, unspecified Status: Acute Assessment and Plan: Likely secondary to steroids continue to monitor (9) Vitamin D deficiency: Code(s): E55.9 - Vitamin D deficiency, unspecified Status: Acute Assessment and Plan: Continue PO replacement Subjective Date/time seen: 10/26/20 11:12 Interval history: Patient was admitted to the hospital was found to have COVID-19 pneumonia required BiPAP/high-flow nasal cannula now on 5 liters of oxygen, much improvement. Feeling weak needing 5 liters of oxygen otherwise is better overall, deciding on discharging home or discharging to a placement. MIld wet cough otherwise states he feels weak Review of Systems Review of Systems: All systems reviewed & are unremarkable except as noted in HPI and below Exam Narrative: Exam Narrative: GENERALLY: middle aged man relaxed and comfortable on 5 liters of oxygen, mild cough HEENT: PERRL, sclerae nonicteric, pharyngeal mucosa pink and intact NECK: No JVD CHEST: normal respiratory effort Objective Data Vital Signs Vital Signs: Vital Signs - 24 hr 10/25/20 13:21 10/25/20 14:00 10/25/20 18:00 Temperature 36.6 C 36.7 C Pulse Rate 83 89 Respiratory Rate 20 18 Blood Pressure 111/63 112/73 Pulse Oximetry 93 94 97 10/25/20 20:00 10/25/20 20:04 10/25/20 21:00 Temperature 36.5 C Pulse Rate 89 89 79 Respiratory Rate 18 18 Blood Pressure 104/58 L Pulse Oximetry 97 95 10/26/20 01:48 10/26/20 05:00 10/26/20 08:26 Temperature 36.0 C L 36.1 C L Pulse Rate 61 55 L 78 Respiratory Rate 16 16 Blood Pressure 113/77 120/76 Pulse Oximetry 98 96 10/26/20 10:00 Temperature 36.1 C L Pulse Rate 67 Respiratory Rate 20 Blood Pressure 114/71 Pulse Oximetry 98 Intake/Output Intake/Output: Intake & Output 10/23/20 10/24/20 10/25/20 10/26/20 23:59 23:59 23:59 23:59 Intake Total 1180 1430 1770 940 Output Total 800 950 950 675 Balance 380 480 820 265 Meds/Results Medications: Active Medications Generic Name Dose Route Start Last Admin Trade Name Freq PRN Reason Stop Dose Admin Acetaminophen 650 mg 10/05/20 11:47 Acetaminophen 325 Mg Tablet PO Q4H PRN Mild Pain (1-3) or Fever Albuterol 2 puff 10/05/20 20:00 10/26/20 08:26 Albuterol Sulfate (*Sp) Inhaler INHALATION 2 puff Q4HRT JASMINA Administration Alprazolam 0.25 mg 10/21/20 14:2
--- NOTE | 2020-10-26 11:16 | PCNWS ---
Weekly nutritional screen. Patient is tolerating current diet-Regular with adequate intake at least 75% of meals. No nutritional needs at this time.
--- NOTE | 2020-10-26 15:16 | PM.PNCARD ---
Progress Note: A&P Assessment and Plan (1) Atrial fibrillation with rapid ventricular response: Code(s): I48.91 - Unspecified atrial fibrillation Status: Acute Assessment and Plan: New onset this hospitalization very likely secondary to hypoxic respiratory failure in setting of COVID pneumonia. Converted to sinus rhythm and has maintained sinus rhythm on sotalol. Transition systemic anticoagulation with enoxaparin to Eliquis 5mg q12. We will sign off at this time. Outpatient follow-up will be arranged upon discharge. (2) Acute respiratory failure with hypoxia: Code(s): J96.01 - Acute respiratory failure with hypoxia Status: Acute Assessment and Plan: Per hospitalist service. (3) Pneumonia due to COVID-19 virus: Code(s): U07.1 - COVID-19; J12.82 - Pneumonia due to coronavirus disease 2018 Status: Acute Assessment and Plan: Supplemental oxygen per nasal cannula (4) Essential hypertension: Code(s): I10 - Essential (primary) hypertension Status: Acute Assessment and Plan: Controlled. Was on lisinopril 10 mg daily as an outpatient. Subjective Date/time seen: 10/26/20 15:16 Interval history: Follow-up visit in this 60-year-old man with atrial fibrillation in the setting of jacinto virus pneumonia. He was started on sotalol for the weekend and converted medically to sinus rhythm. 10/12/2020 No cardiac complaints today. Patient is hoping to go home as soon as his oxygenation is adequate. Date of service 10/14/2020: Patient's oxygenation status has worsened and he has been on BiPAP most of the time. Sterting another round of remdesivir and continues on dexamethasone. Patient has no complaints of chest pain or palpitations, and has maintained sinus rhythm. Only complaint is being short of breath. Dr. Whitley, pulmonary, has rec an Echo to assess LV fxn and a bubble study to assess for shunt, as well as a BNP. Date of service 10/26/2020: Patient is much improved from a respiratory standpoint is now on 5 L oxygen per nasal cannula. He denies cardiac complaints including palpitations, chest pain. He does state that he becomes short of breath with activity but overall is feeling well. He remains in sinus rhythm at this time. Review of Systems Review of Systems: All systems reviewed & are unremarkable except as noted in HPI and below Constitutional: Constitutional: Reports as per HPI, Reports no additional constitutional complaints and Reports weakness Eyes: Eyes: Reports as per HPI and Reports no additional eye complaints ENT: Reports system reviewed and no additional complaints, except as documented, Reports as per HPI and Denies nasal discharge Cardiovascular: Cardiovascular: Reports as per HPI, Reports no additional cardiovascular complaints, Denies chest pain, Denies pedal edema, Denies leg edema, Denies lightheadedness, Denies palpitations, Reports dyspnea and Reports dyspnea on exertion Respiratory: Respiratory: Reports as per HPI, Reports no additional respiratory complaints, Denies cough, Denies hemoptysis, Reports dyspnea and Reports dyspnea on exertion Gastrointestinal: Gastrointestinal: Reports as per HPI, Reports no additional gastrointestinal complaints, Denies abdominal pain, Denies melena, Denies hematochezia, Denies nausea and Denies vomiting Genitourinary: Genitourinary: Reports no additional male genitourinary complaints and Reports as per HPI Musculoskeletal: Musculoskeletal: Reports no additional musculoskeletal complaints and Reports as per HPI Integumentary/Breasts: Skin/Breast: Reports system reviewed and no additional complaints, except as docu and Reports as per HPI Neurologic: Reports system reviewed and no additional complaints, except as documented, Reports a
[2020-10-26] MEDS: ALPRAZolam (*CRX) 0.25 MG TABLET PO ×2 (15:35→21:51)
[2020-10-26] MEDS: SENNOSIDES 8.6 MG TABLET PO (20:31)
[2020-10-26] MEDS: APIXABAN 5 MG TABLET PO (20:31)
[2020-10-27] VITALS (13 sets, daily range): BP systolic 99–119; BP diastolic 48–72; PULSE 66–93; RESP 18–20; TEMP 36–36.7; O2SAT 95–99
[2020-10-27] MEDS: ALBUTEROL SULFATE (*SP) INHALER 2 PUFF INHALATION ×5 (04:02→23:54)
[2020-10-27] MEDS: ACETAMINOPHEN 325 MG TABLET 650 MG PO (04:04)
[2020-10-27] MEDS: APIXABAN 5 MG TABLET PO ×2 (07:52→20:26)
[2020-10-27] MEDS: PANTOPRAZOLE 40 MG TABLET PO (07:52)
[2020-10-27] MEDS: ZINC SULFATE 220 MG CAPSULE PO (07:56)
[2020-10-27] MEDS: ASCORBIC ACID 500 MG TABLET 1000 MG PO (07:56)
[2020-10-27] MEDS: SOTALOL HCL 80 MG TABLET PO ×2 (07:56→23:55)
[2020-10-27] MEDS: CHOLECALCIFEROL 1,000 UNITS TABLET 5000 UNITS PO (07:57)
[2020-10-27] MEDS: MAGNES & ALUM HYD/SIMETH/DIPHENHYD/LIDOCAINE 119 ML MOUTHWASH BY MOUTH ×2 (17:11→20:26)
--- NOTE | 2020-10-27 18:24 | PM.IMPN ---
Progress Note: A&P Assessment and Plan (1) Acute respiratory failure with hypoxia: Code(s): J96.01 - Acute respiratory failure with hypoxia Status: Acute Assessment and Plan: Due to COVID-19 pneumonia 10/24 on 5 L by NC Continue to wean as tolerated 10/24 PT/OT 10/25 4L by NC 10/28 on 2 liters of oxygen (2) Pneumonia due to COVID-19 virus: Code(s): U07.1 - COVID-19; J12.82 - Pneumonia due to coronavirus disease 2018 Status: Acute Assessment and Plan: Admitted 10/03/2020 Convalescent plasma Remdesivir and dexamethasone for 10 days Much improved (3) Atrial fibrillation with rapid ventricular response: Code(s): I48.91 - Unspecified atrial fibrillation Status: Acute Assessment and Plan: Off of Cardizem drip Anticoagulated On metoprolol HR controlled (4) RONALD (obstructive sleep apnea): Code(s): G47.33 - Obstructive sleep apnea (adult) (pediatric) Status: Acute Assessment and Plan: CPAP at nighttime (5) Essential hypertension: Code(s): I10 - Essential (primary) hypertension Status: Acute Assessment and Plan: Controlled (6) Hyponatremia: Code(s): E87.1 - Hypo-osmolality and hyponatremia Status: Acute Assessment and Plan: Resolved Monitor (7) Acute hyperkalemia: Code(s): E87.5 - Hyperkalemia Status: Resolved Assessment and Plan: Resolved (8) Leucocytosis: Qualifiers: Leukocytosis type: unspecified Qualified Code(s): D72.829 - Elevated white blood cell count, unspecified Code(s): D72.829 - Elevated white blood cell count, unspecified Status: Acute Assessment and Plan: Likely secondary to steroids continue to monitor (9) Vitamin D deficiency: Code(s): E55.9 - Vitamin D deficiency, unspecified Status: Acute Assessment and Plan: Continue PO replacement Subjective Date/time seen: 10/27/20 18:24 Interval history: Pt admitted with covid pneumonia doing alot better. Pt is moving more in the room and is down to 2 liters of oxygen wants to go home soon. Review of Systems Review of Systems: All systems reviewed & are unremarkable except as noted in HPI and below Exam Narrative: Exam Narrative: GENERALLY: middle aged man relaxed and comfortable on 2 liters of oxygen HEENT: PERRL, sclerae nonicteric, pharyngeal mucosa pink and intact NECK: No JVD CHEST: normal respiratory effort ABDOMEN: BS+, soft, nontender, no mass, no bruits EXTREMITIES: No cyanosis, edema, or clubbing NEUROLOGIC: CN intact and symmetric to inspection. MUSCULOSKELETAL: Tone and strength symmetric. PSYCH: Alert. Oriented to person, place, and time. Objective Data Vital Signs Vital Signs: Vital Signs - 24 hr 10/26/20 20:00 10/26/20 20:31 10/26/20 22:00 Temperature 36.3 C L Pulse Rate 75 75 81 Respiratory Rate 18 20 Blood Pressure 100/70 Pulse Oximetry 95 98 10/26/20 23:43 10/27/20 00:00 10/27/20 04:00 Temperature 36.2 C L 36.1 C L Pulse Rate 66 68 Respiratory Rate 20 18 Blood Pressure 106/65 100/66 Pulse Oximetry 96 99 97 10/27/20 07:55 10/27/20 07:56 10/27/20 08:00 Temperature 36.7 C Pulse Rate 68 93 Respiratory Rate 20 Blood Pressure 113/67 99/48 L Pulse Oximetry 96 10/27/20 09:10 10/27/20 12:00 10/27/20 14:00 Temperature 36.0 C L 36.3 C L Pulse Rate 78 87 Respiratory Rate 18 18 Blood Pressure 103/66 113/72 Pulse Oximetry 96 96 96 Intake/Output Intake/Output: Intake & Output 10/24/20 10/25/20 10/26/20 10/27/20 23:59 23:59 23:59 23:59 Intake Total 1430 1770 2240 1150 Output Total 750 795 9167 1250 Balance 480 820 915 -100 Meds/Results Medications: Active Medications Generic Name Dose Route Start Last Admin Trade Name Freq PRN Reason Stop Dose Admin Acetaminophen 650 mg 10/05/20 11:47 10/27/20 04:04 Acetaminophen 325 Mg Tablet PO 650 mg Q4H PRN Administration
[2020-10-27] MEDS: SENNOSIDES 8.6 MG TABLET PO (20:26)
[2020-10-27] MEDS: ALPRAZolam (*CRX) 0.25 MG TABLET PO (20:26)
[2020-10-28] VITALS (11 sets, daily range): BP systolic 102–122; BP diastolic 64–72; PULSE 68–97; RESP 18–20; TEMP 36.2–36.6; O2SAT 94–99
[2020-10-28] MEDS: ALBUTEROL SULFATE (*SP) INHALER 2 PUFF INHALATION ×5 (03:26→20:41)
[2020-10-28] MEDS: ASCORBIC ACID 500 MG TABLET 1000 MG PO (08:05)
[2020-10-28] MEDS: ZINC SULFATE 220 MG CAPSULE PO (08:05)
[2020-10-28] MEDS: APIXABAN 5 MG TABLET PO ×2 (08:05→20:40)
[2020-10-28] MEDS: CHOLECALCIFEROL 1,000 UNITS TABLET 5000 UNITS PO (08:05)
[2020-10-28] MEDS: SOTALOL HCL 80 MG TABLET PO ×2 (08:06→20:40)
[2020-10-28] MEDS: PANTOPRAZOLE 40 MG TABLET PO (12:32)
[2020-10-28] MEDS: MAGNES & ALUM HYD/SIMETH/DIPHENHYD/LIDOCAINE 119 ML MOUTHWASH BY MOUTH (20:40)
[2020-10-28] MEDS: SENNOSIDES 8.6 MG TABLET PO (20:40)
[2020-10-28] MEDS: ALPRAZolam (*CRX) 0.25 MG TABLET PO (20:45)
[2020-10-29] VITALS (11 sets, daily range): BP systolic 103–108; BP diastolic 67–74; PULSE 66–110; RESP 18–21; TEMP 36.1–36.8; O2SAT 87–100
[2020-10-29] MEDS: SOTALOL HCL 80 MG TABLET PO (08:06)
[2020-10-29] MEDS: ASCORBIC ACID 500 MG TABLET 1000 MG PO (08:06)
[2020-10-29] MEDS: PANTOPRAZOLE 40 MG TABLET PO (08:06)
[2020-10-29] MEDS: APIXABAN 5 MG TABLET PO (08:06)
[2020-10-29] MEDS: ZINC SULFATE 220 MG CAPSULE PO (08:06)
[2020-10-29] MEDS: ALBUTEROL SULFATE (*SP) INHALER 2 PUFF INHALATION ×3 (08:07→16:59)
--- NOTE | 2020-10-29 16:19 | PM.IMPN ---
Progress Note: A&P Assessment and Plan (1) Acute respiratory failure with hypoxia: Code(s): J96.01 - Acute respiratory failure with hypoxia Status: Acute Assessment and Plan: Due to COVID-19 pneumonia Weaning off oxygen nicely (2) Pneumonia due to COVID-19 virus: Code(s): U07.1 - COVID-19; J12.82 - Pneumonia due to coronavirus disease 2018 Status: Acute Assessment and Plan: Admitted 10/03/2020 Convalescent plasma Remdesivir and dexamethasone for 10 days Much improved PT/OT to continue for deconditioned state (3) Atrial fibrillation with rapid ventricular response: Code(s): I48.91 - Unspecified atrial fibrillation Status: Acute Assessment and Plan: Off of Cardizem drip Anticoagulated On metoprolol HR controlled (4) RONALD (obstructive sleep apnea): Code(s): G47.33 - Obstructive sleep apnea (adult) (pediatric) Status: Acute Assessment and Plan: CPAP at nighttime (5) Essential hypertension: Code(s): I10 - Essential (primary) hypertension Status: Acute Assessment and Plan: Controlled (6) Hyponatremia: Code(s): E87.1 - Hypo-osmolality and hyponatremia Status: Acute Assessment and Plan: Resolved Monitor (7) Acute hyperkalemia: Code(s): E87.5 - Hyperkalemia Status: Resolved Assessment and Plan: Resolved (8) Leucocytosis: Qualifiers: Leukocytosis type: unspecified Qualified Code(s): D72.829 - Elevated white blood cell count, unspecified Code(s): D72.829 - Elevated white blood cell count, unspecified Status: Acute Assessment and Plan: Likely secondary to steroids continue to monitor (9) Vitamin D deficiency: Code(s): E55.9 - Vitamin D deficiency, unspecified Status: Acute Assessment and Plan: Continue PO replacement Subjective Date/time seen: 10/28/20 16:19 Long discussion with and patient in the room pt feels weak when standing and moving. due to prolonged hospital stay otherwise is doing better, remains on 2 liters of oxygen. Pt refusing placement in rehab wants to go home with home health. Review of Systems Review of Systems: All systems reviewed & are unremarkable except as noted in HPI and below Exam Narrative: Exam Narrative: GENERALLY: middle aged man relaxed and comfortable on 2 liters HEENT: PERRL, sclerae nonicteric, pharyngeal mucosa pink and intact NECK: No JVD CHEST: normal respiratory effort ABDO: soft non tender LEGS: non edematous NEURO: Weakness of both legs general weakness PSYCH: Anxiety Objective Data Vital Signs Vital Signs: Vital Signs - 24 hr 10/28/20 18:00 10/28/20 20:00 10/28/20 20:40 Temperature 36.4 C Pulse Rate 80 80 78 Respiratory Rate 20 20 Blood Pressure 106/66 Pulse Oximetry 94 94 10/28/20 22:00 10/29/20 02:00 10/29/20 06:00 Temperature 36.2 C L 36.8 C 36.1 C L Pulse Rate 97 75 82 Respiratory Rate 20 21 H 20 Blood Pressure 122/70 108/67 105/74 Pulse Oximetry 99 100 98 10/29/20 08:06 10/29/20 10:00 10/29/20 14:00 Temperature 36.2 C L 36.8 C Pulse Rate 88 66 94 Respiratory Rate 18 20 Blood Pressure 103/69 108/70 Pulse Oximetry 98 96 10/29/20 16:01 Temperature Pulse Rate Respiratory Rate Blood Pressure Pulse Oximetry 92 Intake/Output Intake/Output: Intake & Output 10/26/20 10/27/20 10/28/20 10/29/20 23:59 23:59 23:59 23:59 Intake Total 2240 2040 2070 1250 Output Total 1325 1875 1750 1100 Balance 915 165 320 150 Meds/Results Medications: Active Medications Generic Name Dose Route Start Last Admin Trade Name Freq PRN Reason Stop Dose Admin Acetaminophen 650 mg 10/05/20 11:47 10/27/20 04:04 Acetaminophen 325 Mg Tablet PO 650 mg Q4H PRN Administration Mild Pain (1-3) or Fever Albuterol 2 puff 10/05/20 20:00 10/29/20 11:50 Albuterol Sulfate (*Sp) Inhaler INHALATION 2 puff Q
--- NOTE | 2020-10-29 16:23 | HOMEO2EVAL ---
Evaluation was performed at [facility] Home Oxygen Evaluation RC: Home Oxygen (O2) Evaluation Start: 10/29/20 12:32 Freq: ONCE Status: Active Protocol: RPE Activity Type Activity Date Activity User E-Sign Co-Sign Detail Recorded Client Recorded Date Recorded By Document 10/29/20 16:00 [email or web address] [email or web address] 10/29/20 16:23 YISEL Document 10/29/20 16:02 [email or web address] [email or web address] 10/29/20 16:23 YISEL Document 10/29/20 16:05 YISEL [email or web address] 10/29/20 16:23 YISEL Document 10/29/20 16:08 [email or web address] [email or web address] 10/29/20 16:23 YISEL Document 10/29/20 16:15 YISEL [email or web address] 10/29/20 16:23 YISEL 10/29/20 10/29/20 10/29/20 16:00 16:02 16:05 Home O2 Evaluation Test Phase Resting Resting Exercise Oxygen Delivery Room Air Nasal Cannula Nasal Cannula Oxygen Flow Rate (L/min) 1 1 Pulse Oximetry (90-100 %) 87 L 93 87 L Pulse Rate (60-100 beats/min) 90 110 H Ambulation Distance (feet) Home Oxygen Evaluation Comments Treatment Charges O2 Evaluation - Inpatient 10/29/20 10/29/20 16:08 16:15 Home O2 Evaluation Test Phase Exercise Resting Oxygen Delivery Nasal Cannula Nasal Cannula Oxygen Flow Rate (L/min) 2 1 Pulse Oximetry (90-100 %) 92 95 Pulse Rate (60-100 beats/min) 100 95 Ambulation Distance (feet) 100 Home Oxygen Evaluation Comments PT REQUIRES 1 L AT REST AND 2 L WITH EXERTION Treatment Charges
--- NOTE | 2020-10-29 16:23 | PCRCNOTE ---
HOME O2 EVAL COMPLETED. PT REQUIRES 1 L AT REST AND 2 L WITH EXERTION. SET UP WITH [facility]. [facility] IN ROOM FOR TRANSPORT HOME. PT AWARE HE NEEDS TO CALL # ON TANK ONCE HE IS D/C. CHARGE NURSE NOTIFIED.
--- NOTE | 2020-10-29 16:34 | PM.DS ---
DS: Admitting Diagnosis Admitting Diagnosis Admitting Diagnosis: Shortness of breath DS: Discharge Diagnosis Discharge Diagnosis (1) Acute respiratory failure with hypoxia: Code(s): J96.01 - Acute respiratory failure with hypoxia Status: Acute Assessment and Plan: Due to COVID-19 pneumonia Weaning off oxygen nicely, very supportive. Pt has been here over 3 weeks initially was on high flow oxygen and BIPAP therapies. Doing better on the medical floor. Much improved. (2) Pneumonia due to COVID-19 virus: Code(s): U07.1 - COVID-19; J12.82 - Pneumonia due to coronavirus disease 2018 Status: Acute Assessment and Plan: Admitted 10/03/2020 Convalescent plasma Remdesivir and dexamethasone for 10 days Much improved PT/OT to continue for deconditioned state Pt discharged on 2 liter of oxygen much improved respiratory status. (3) Atrial fibrillation with rapid ventricular response: Code(s): I48.91 - Unspecified atrial fibrillation Status: Acute Assessment and Plan: Off of Cardizem drip Anticoagulated On metoprolol HR controlled (4) RONALD (obstructive sleep apnea): Code(s): G47.33 - Obstructive sleep apnea (adult) (pediatric) Status: Acute Assessment and Plan: CPAP at nighttime (5) Essential hypertension: Code(s): I10 - Essential (primary) hypertension Status: Acute Assessment and Plan: Controlled (6) Hyponatremia: Code(s): E87.1 - Hypo-osmolality and hyponatremia Status: Acute Assessment and Plan: Resolved Monitor (7) Acute hyperkalemia: Code(s): E87.5 - Hyperkalemia Status: Resolved Assessment and Plan: Resolved (8) Leucocytosis: Qualifiers: Leukocytosis type: unspecified Qualified Code(s): D72.829 - Elevated white blood cell count, unspecified Code(s): D72.829 - Elevated white blood cell count, unspecified Status: Acute Assessment and Plan: Likely secondary to steroids (9) Vitamin D deficiency: Code(s): E55.9 - Vitamin D deficiency, unspecified Status: Acute Assessment and Plan: Continue PO replacement DS: Summary Hospital Course Hospital Course: COVID-19 pneumonia. Weaning off oxygen nicely, very supportive. Pt has been here over 3 weeks initially was on high flow oxygen and BIPAP therapies. Doing better on the medical floor. Much improved. Long discussion with and patient in the room pt feels weak when standing and moving. due to prolonged hospital stay otherwise is doing better, remains on 2 liters of oxygen. Pt refusing placement in rehab wants to go home with home health. See full hospital notes for details. Time Spent with Patient Time attestation: Total time spent providing and/or coordinating discharge services: 40 minutes on day of discharge Exam Narrative: Exam Narrative: GENERALLY: middle aged man relaxed and comfortable on 2 liters HEENT: PERRL, sclerae nonicteric, pharyngeal mucosa pink and intact NECK: No JVD CHEST: normal respiratory effort ABDO: soft non tender LEGS: non edematous NEURO: Weakness of both legs general weakness PSYCH: Anxiety Discharge Plan Discharge Attending physician on discharge: Monie Acevedo Consulting providers: Murali Lynn ; Александр Carrion ; Michael Adame M.A. ; Sam Anderson ; Pradeep Dickerson ; Geo Alarcon ; Александр Jones ; Constantine Pino ; Javier Castle ; Fabiano Poe ; Dianne Beyer ; Prasanna Poe V. ; Jennifer Williamson Discharging Clinician: Monie Acevedo Anticipated Discharge Date/Time: 10/29/20 16:24 Patient Disposition: Home Health Service Activity: as tolerated Diet: regular Discharge Instructions: Per Care Coordination, patient to discharge with [facility] ([phone]) for PT/OT and alf for respiratory assessments. Pt to discharge on oxygen and home health s
== END 2020-10-29 18:10 | disposition home health service (06) | DRG 177 ==
LOC: ANHED 12:01 → ANHIMU 10-07 15:11 → ANH2MED 10-26 18:05 → ANHIMU 11-02 13:37
PROVIDERS: Internal Medicine; Internal Medicine Pulmonary Disease; Admitting Provider Internal Medicine; Emergency Provider Family Medicine; PCP Family Medicine; Visit Provider Family Medicine
DX: U07.1 COVID-19 (principal); J12.82 Pneumonia due to coronavirus disease 2019; J96.01 Acute respiratory failure with hypoxia; E22.2 Syndrome of inappropriate secretion of antidiuretic hormone; I48.91 Unspecified atrial fibrillation; G47.33 Obstructive sleep apnea (adult) (pediatric); E78.00 Pure hypercholesterolemia, unspecified; K57.90 Diverticulosis of intestine, part unspecified, without perforation or abscess without bleeding; N52.9 Male erectile dysfunction, unspecified; E87.5 Hyperkalemia; D72.829 Elevated white blood cell count, unspecified; T38.0X5A Adverse effect of glucocorticoids and synthetic analogues, initial encounter; E55.9 Vitamin D deficiency, unspecified; Z87.891 Personal history of nicotine dependence
CPT/HCPCS: 36415; 36430; 36600; 71045; 80048; 80053; 82306; 82375; 82565; 82728; 82805; 83050; 83605; 83615; 83880; 83935; 84300; 84460; 85025; 85027; 85610; 86900; 86901; 87040; 93005; 93306; 94002; 94003; 94618; 94640; 96374; 96375; 97110; 97116; 97161; 97165; 97530; 97535; 99285; A9270; J0456; J0696; J1100; J1650; J7030; J7050; P9059

== ENCOUNTER 2020-11-04 19:20 | Emergency (ER) | payer OTHER, SELFPAY ==
--- NOTE | ~2020-11-04 | CT_ITS ---
EXAMINATION: CT BRAIN W/O DATE: 11/04/2020 20:10 INDICATION: Headache TECHNIQUE: Computed tomography (CT) of the head was performed without intravenous contrast. The dose- length product was 605.33 mGy-cm. Automated exposure control and iterative reconstruction technique w ere employed. COMPARISON: No prior studies for comparison. FINDINGS: Normal brain parenchymal volume for age. Normal vasquez-white differentiation. No acute intrac ranial hemorrhage, infarction, mass or mass effect. There are scattered mild periventricular and subc ortical white matter changes, most likely related to small vessel ischemic disease (microangiopathy). No ventriculomegaly or midline shift. Midline sagittal images demonstrate a normal corpus callosum, c raniovertebral junction and sella turcica. Basilar cisterns are patent. Paranasal sinuses and mastoids are pneumatized. No depressed skull fractures. IMPRESSION: 1. No acute intracranial abnormality. Reviewed, dictated and finalized at location A.
[2020-11-04 19:28] VITALS: BP 140/84; PULSE 94; RESP 18; TEMP 36.8; O2SAT 95
--- NOTE | 2020-11-04 19:47 | ED.HA ---
HPI - Headache General Chief Complaint: Headache Stated Complaint: headache Time Seen by Provider: 11/04/20 19:45 Source: patient Mode of arrival: ambulatory Limitations: no limitations History of Present Illness HPI Narrative: Patient is a 60-year-old male complaining of a headache, frontal, dull, nonradiating, 5 out of 10, started 2-3 days ago. Patient states that he was recently diagnosed with Covid and was recently discharged from the hospital after being admitted. Patient denies any speech or visual disturbance, weakness, numbness or unsteady gait. Patient denies any neck pain, stiffness, fever or chills. Denies any chest pain, shortness of breath, nausea, vomiting or diarrhea. Patient states that he was recently placed on Eliquis due to his recently diagnosis of atrial fib while he was here in the hospital due to Covid. Related Data Allergies Allergy/AdvReac Type Severity Reaction Status Date / Time No Known Allergies Allergy Verified 10/05/20 09:46 Review of Systems Review of Systems: All systems reviewed & are unremarkable except as noted in HPI and below Constitutional: Constitutional: Denies body ache(s), Denies chills, Denies excessive sweating, Denies fatigue, Denies fever(s), Denies headache(s), Denies lethargy, Denies malaise, Denies weakness and Denies weight loss Eyes: Eyes: Denies blurry vision, Denies change in vision and Denies loss of vision ENT: Denies dizziness, Denies ear discharge, Denies headache(s), Denies lip swelling, Denies epistaxis, Denies nasal congestion, Denies neck pain, Denies throat swelling and Denies tongue swelling Cardiovascular: Cardiovascular: Denies chest pain, Denies chest pain at rest, Denies chest pain with activity, Denies diaphoresis, Denies rapid heart rate, Denies edema, Denies irregular heart rhythm, Denies lightheadedness, Denies palpitations, Denies dyspnea and Denies dyspnea on exertion Respiratory: Respiratory: Denies chest congestion, Denies cough, Denies hemoptysis, Denies dyspnea and Denies dyspnea on exertion Gastrointestinal: Gastrointestinal: Denies abdominal pain, Denies melena, Denies hematochezia, Denies diarrhea, Denies nausea, Denies vomiting and Denies hematemesis Musculoskeletal: Musculoskeletal: Denies abnormal gait, Denies deformity, Denies joint swelling, Denies limited range of motion, Denies neck pain and Denies numbness Neurologic: Denies Abnormal speech present, Denies abnormal gait, Denies confusion, Denies dizziness, Denies focal weakness, Denies loss of vision, Denies numbness, Denies Other visual disturbances, Denies Sensory deficit (Neuro) and Denies weakness Psychiatric: Psychiatric: Denies confusion, Denies depression, Denies auditory hallucinations, Denies homicidal ideation and Denies suicidal ideation Endocrine: Endocrine: Denies cold intolerance, Denies excessive sweating, Denies fatigue, Denies heat intolerance and Denies palpitations Hematologic/Lymphatic: Hematologic/Lymphatic: Denies easy bleeding and Denies easy bruising Allergic/Immunologic: Allergic/Immunologic: Denies lip swelling, Denies throat swelling and Denies tongue swelling PMFSH Past Medical History Medical History Diverticulosis of large intestine without hemorrhage Erectile dysfunction Essential hypertension RONALD (obstructive sleep apnea) Pure hypercholesterolemia Surgical History Surgical History History of left inguinal hernia repair Family History Family History Father Family history of lung cancer Family history of coronary artery disease Hypertension Mesothelioma Social History Social History Smoking packs per day: 0.25 Smoking cigarettes per day: 5.0 Years smoked: 10 Smoking pack-years: 2.50 Smoking status: Former smoker Tobacco
[2020-11-04 20:59] VITALS: BP 139/93; PULSE 96; RESP 20; O2SAT 100
[2020-11-04] MEDS: diphenhydrAMINE HCl INJ 50 MG/ML VIAL 25 MG IV PUSH (20:59)
[2020-11-04] MEDS: METOCLOPRAMIDE HCL INJ 10 MG/2 ML VIAL IV PUSH (20:59)
== END 2020-11-04 21:53 | disposition home or self-care (01) ==
PROVIDERS: Emergency Provider Emergency Medicine; PCP Family Medicine
DX: R51.9 Headache, unspecified (principal); Z87.891 Personal history of nicotine dependence; K57.30 Diverticulosis of large intestine without perforation or abscess without bleeding; I10 Essential (primary) hypertension; G47.30 Sleep apnea, unspecified; E78.5 Hyperlipidemia, unspecified
CPT/HCPCS: 70450; 96374; 96375; 99284; J1200; J2765

== ENCOUNTER → 2021-07-23 08:40 | Outpatient (CLI) | payer OTHER, SELFPAY ==
--- NOTE | ~2021-07-23 | XR_ITS ---
XR chest 2V DATE: 07/23/2021 08:53 INDICATION: Chronic cough TECHNIQUE: PA and lateral views COMPARISON: 10/28/2020 portable AP chest FINDINGS: Normal heart size. No hilar or mediastinal enlargement. No pulmonary infiltrate or consolid ation, pleural effusion or pulmonary vascular congestion or pneumothorax. There is degenerative spurring and mild dextroscoliosis of the thoracic spine. IMPRESSION: No active cardiopulmonary disease Reviewed, dictated and finalized at location A. [employer]
== END ==
PROVIDERS: PCP Family Medicine; Visit Provider Physician Assistant
DX: R05.3 Chronic cough (principal); U09.9 Post COVID-19 condition, unspecified
CPT/HCPCS: 71046